=== PATIENT | male | born 1965 | race Caucasian/White ===

== ENCOUNTER 2020-06-22 07:54 | Outpatient (REF) | payer OTHER, SELFPAY ==
[2020-06-22 10:19] LABS: Hemoglobin 16.4 g/dl (14.0-18.0); MANUAL DIFF FLAG SCAN; Red Cell Distribution Width 12.1 % (11.0-16.0); SCAN SMEAR FLAG 1
[2020-06-22 10:21] LABS: Basophils Absolute Auto 0.1 X10*3/uL (0.0-0.2); Basophils Percent Auto 0.8 % (0-2); Eosinophils Absolute Auto 0.3 X10*3/uL (0.0-0.4); Hematocrit 48.9 % (42-52); Imm Gran Abs Auto 0.04 X10*3/uL (0.00-0.03); Imm Gran Pct Auto 0.6 % (0.0-0.4); Lymphocytes Percent Auto 15.8 % (20-40); Mean Corpuscular HGB Conc 33.5 g/dl (31.0-36.0); Mean Corpuscular Hemoglobin 30.8 pg (27.0-33.0); Mean Corpuscular Volume 91.9 fL (80-98); Mean Platelet Volume 12.8 fL (9.4-12.4); Monocytes Absolute Auto 0.6 X10*3/uL (0.1-1.2); Monocytes Percent Auto 8.8 % (2-11); Neutrophils Absolute Auto 4.6 X10*3/uL (2.0-8.3); Platelet Count 125 X10*3/uL (160-400); Red Blood Count 5.32 X10*6/uL (4.60-5.80); White Blood Count 6.6 X10*3/uL (4.8-10.8)
[2020-06-22 10:30] LABS: Alanine Aminotransferase 25 U/L (0-40); Albumin Level 4.5 g/dL (3.5-5.0); Alkaline Phosphatase 97 U/L (39-117); Anion Gap 10 (12-20); Aspartate Amino Transferase 27 U/L (5-37); Bilirubin Total 0.5 mg/dL (0.0-1.0); Blood Urea Nitrogen 13 mg/dL (9-16); Calcium 8.6 mg/dL (8.4-10.2); Carbon Dioxide 30 mmol/L (22-29); Chloride 103 mmol/L (96-108); Cholesterol 185 mg/dL; Estimated Glomerular Filt Rate > 60; Glucose Fasting 84 mg/dL (60-99); HDL Cholesterol 53 mg/dL; LDL Cholesterol Calculated 119 mg/dl; Potassium 4.2 mmol/l (3.3-5.1); Sodium 139 mmol/L (135-145); Triglycerides 66 mg/dL
[2020-06-22 10:35] LABS: Glucose Urine UA NEG (NEG); Leukocyte Esterase Urine NEG (NEG); Nitrite Urine NEG (NEG); PH 7.5 (5.0-8.0); Specific Gravity - Urine <= 1.005 (1.005-1.025); Urine Blood NEG (NEG); Urine Ketones NEG (NEG); Urine Protein NEG (NEG-TRACE)
[2020-06-22 10:39] LABS: Appearance Urine CLEAR; Color Urine STRAW
[2020-06-22 10:59] LABS: Free T4 (Free Thyroxine) 0.95 ng/dL (0.71-1.85); Thyroid Stimulating Hormone 1.26 uIU/mL (0.32-4.0); Vitamin D 25-OH Total 28.3 ng/mL (>30)
[2020-06-22 11:00] LABS: PLT ABN DIST 1
[2020-06-22 11:04] LABS: Prostate Specific Antigen Scr 0.62 ng/mL (<0.05-4.0); Vitamin B12 800 pg/mL (200-900)
== END 2020-06-22 07:55 | disposition home or self-care (01) ==
LOC: HO.10HDL 07:54
PROVIDERS: PCP Internal Medicine; Visit Provider Internal Medicine
DX: R53.83 Other fatigue (principal); N40.0 Benign prostatic hyperplasia without lower urinary tract symptoms; E55.9 Vitamin D deficiency, unspecified; E07.9 Disorder of thyroid, unspecified
CPT/HCPCS: 36415; 80053; 80061; 81003; 82306; 82607; 84153; 84439; 84443; 85025

== ENCOUNTER 2020-08-08 12:28 | Outpatient (REF) | payer OTHER, SELFPAY ==
--- NOTE | 2020-08-08 12:42 | XR_ITS ---
EXAMINATION: XR RIBS, RIGHT CLINICAL INFORMATION: Right posterior rib pain COMPARISON: None TECHNIQUE: 3 views of the right ribs were obtained. FINDINGS: Lungs are clear. No consolidation, pneumothorax, or pleural effusion. The cardiomediastinal silhouette and pulmonary vasculature are normal. Osseous structures are unremarkable. Ribs are intact. No fractures are identified. XR/XR ribs RT min 3V w CXR1V IMPRESSION: Unremarkable examination.
== END 2020-08-08 12:29 | disposition home or self-care (01) ==
LOC: HO.XRAY 12:28
PROVIDERS: PCP Internal Medicine; Visit Provider Internal Medicine
DX: R07.81 Pleurodynia (principal)
CPT/HCPCS: 71101

== ENCOUNTER 2020-10-13 16:19 | Outpatient (REF) | payer OTHER, SELFPAY ==
[2020-10-13 17:24] LABS: MANUAL DIFF FLAG NO
[2020-10-13 17:32] LABS: Basophils Absolute Auto 0.1 X10*3/uL (0.0-0.2); Basophils Percent Auto 0.7 % (0-2); Eosinophils Absolute Auto 0.2 X10*3/uL (0.0-0.4); Eosinophils Percent Auto 3.2 % (0-4); Hematocrit 48.2 % (42-52); Imm Gran Abs Auto 0.03 X10*3/uL (0.00-0.03); Imm Gran Pct Auto 0.4 % (0.0-0.4); Lymphocytes Absolute Auto 1.1 X10*3/uL (1.2-4.9); Lymphocytes Percent Auto 14.4 % (20-40); Mean Corpuscular HGB Conc 33.2 g/dl (31.0-36.0); Mean Corpuscular Hemoglobin 30.6 pg (27.0-33.0); Mean Corpuscular Volume 92.2 fL (80-98); Mean Platelet Volume 12.8 fL (9.4-12.4); Monocytes Absolute Auto 0.5 X10*3/uL (0.1-1.2); Monocytes Percent Auto 7.2 % (2-11); Neutrophils Absolute Auto 5.6 X10*3/uL (2.0-8.3); Neutrophils Percent Auto 74.1 % (45-73); Platelet Count 108 X10*3/uL (160-400); Red Blood Count 5.23 X10*6/uL (4.60-5.80); Red Cell Distribution Width 12.4 % (11.0-16.0); White Blood Count 7.5 X10*3/uL (4.8-10.8)
[2020-10-13 18:01] LABS: Alanine Aminotransferase 34 U/L (0-40); Albumin Level 4.6 g/dL (3.5-5.0); Alkaline Phosphatase 101 U/L (39-117); Anion Gap 11 (12-20); Aspartate Amino Transferase 41 U/L (5-37); Bilirubin Total 0.6 mg/dL (0.0-1.0); Blood Urea Nitrogen 13 mg/dL (9-16); Carbon Dioxide 31 mmol/L (22-29); Chloride 105 mmol/L (96-108); Estimated Glomerular Filt Rate > 60; Glucose Random 85 mg/dL (60-115); Potassium 3.9 mmol/L (3.3-5.1); Sodium 143 mmol/L (135-145); Total Protein 7.4 g/dL (6.5-8.0)
== END 2020-10-13 16:20 | disposition home or self-care (01) ==
LOC: HO.LAB 16:19
PROVIDERS: PCP Internal Medicine; Visit Provider Internal Medicine
DX: R19.7 Diarrhea, unspecified (principal); K21.9 Gastro-esophageal reflux disease without esophagitis
CPT/HCPCS: 36415; 80053; 85025

== ENCOUNTER 2020-11-12 12:01 | Inpatient (IN) | payer OTHER, SELFPAY ==
--- NOTE | ~2020-11-12 | XR_ITS ---
EXAMINATION: XR ELBOW, RIGHT CLINICAL INFORMATION: Right elbow pain COMPARISON: None TECHNIQUE: AP, lateral, and oblique views of the right elbow. FINDINGS: The bones and soft tissues are normal. No fracture or joint effusion. Alignment is anatomic. Joint spaces are maintained. XR/XR elbow RT min 3V IMPRESSION: Normal right elbow.
--- NOTE | ~2020-11-12 | CT_ITS ---
EXAMINATION: CTA CHEST WITHOUT AND WITH CONTRAST (PE STUDY) CT ABDOMEN AND PELVIS WITH CONTRAST CLINICAL INFORMATION: Shortness of breath. Clinical concern regarding pulmonary embolism. Diarrhea for months after antibiotics COMPARISON: The report of CT abdomen pelvis 09/30/13 includes no acute intra-abdominal abnormalities. TECHNIQUE: CT angiography of the chest. Multidetector CT helical examination of the chest during the rapid IV administration 65 mL of intravenous Omnipaque 350. Multidetector CT of the abdomen and pelvis performed after the IV contrast administration. Extensive postprocessing was performed including reformatting and multiplanar reconstructions with maximum intensity projections. Pulmonary embolus technique. DLP: 746 mGy-cm. FINDINGS: CTA CHEST: Adequate bolus: The study is adequate technical quality Pulmonary arteries: There are multiple bilateral central pulmonary emboli. The clot burden is large. There is no large embolus in the main pulmonary artery or central right and left pulmonary arteries. There are large central emboli within segmental branches bilaterally. Aorta: There is no thoracic aortic aneurysm. There is no dissection. The heart is not enlarged. The septum is not deviated. There is no reflux of contrast into the hepatic veins. There is no pericardial fluid. Mediastinum: There are no enlarged mediastinal or hilar lymph nodes. No suspicious abnormality the esophagus. Pleura: There is no pleural fluid or pneumothorax. LUNGS: There is no suspicious mass or nodule. No consolidation or major zone atelectasis. No edema. Axilla: There are no enlarged axillary lymph nodes. No large chest wall mass. CT abdomen/pelvis: Liver, Gallbladder, And Biliary Tree: There is a poorly defined 1.1 cm low attenuating lesion in hepatic segment 5. This is likely unchanged since 2014. There is a 0.5 cm low attenuating lesion at the posterior lower margin of hepatic segment 6. This is also too small to characterize and may be unchanged. This does not require any further evaluation. There are some barely perceptible tiny low attenuating liver lesions which are too small to characterize and could represent cysts. The liver contour is smooth. There is no opaque gallstone. There is no biliary dilation. Pancreas: Within normal limits. Spleen: Normal Adrenal Glands: No suspicious abnormality Kidneys And Ureters: There is no dilation of the intrarenal collecting system on either side. There is no suspicious renal mass. The nephrograms are symmetric. Gastrointestinal Tract: There is no bowel wall thickening. No localized pericolonic fat stranding. There is no small bowel dilation. The stomach is not well distended. There is no omental or mesenteric mass demonstrated. There is no CT evidence of acute appendicitis. Abdominal Wall: There is a small amount of fat protruding into the left inguinal canal. This is unchanged since 2014. Lymphovascular Structures And Fluid: There is no abdominal aortic aneurysm. The portal vein enhances. There are no measurably enlarged abdominal or pelvic lymph nodes. There is no fringe peritoneal fluid. Bladder: No suspicious abnormality of the urinary bladder. Pelvic Viscera: Within normal limits Musculoskeletal: There is a disc abnormality at L4/L5 not well characterized. There is a disc osteophyte complex at L5/S1 with associated endplate degenerative changes. CT/CT angio chest PE protocol IMPRESSION: Multiple bilateral central pulmonary emboli. High clot burden. There is no septal deviation or reflux of contrast into the hepatic veins. No suspicious mass in the abdomen or pelvis. No etiology for diarrhea demonstrated. VTE: POSITIVE
--- NOTE | ~2020-11-12 | US_ITS ---
EXAMINATION: US VENOUS ULTRASOUND WITH DOPPLER LOWER EXTREMITY, BILATERAL CLINICAL INFORMATION: History of DVT with elevated d-dimer COMPARISON: None TECHNIQUE: Ultrasound of the deep veins is performed from the hip to the calf with compression sonography and color and pulse Doppler assessment. Spectral analysis with color-flow imaging is performed. FINDINGS: RIGHT: There is normal venous compression and respiratory variation and augmented flow. The visualized common femoral vein, superficial femoral vein, profunda femoral vein, popliteal vein, and the trifurcation region shows no evidence of deep venous thrombosis. There is no significant popliteal fossa cyst. LEFT: Acute thrombus present in the peroneal and posterior tibial veins extending into the popliteal vein. No other thrombus is seen there is normal venous compression and respiratory variation and augmented flow throughout the remainder of the deep venous system. The visualized common femoral vein, superficial femoral vein and profunda femoral vein shows no evidence of deep venous thrombosis. There is no significant popliteal fossa cyst. Some chronic thrombus may be present in the superficial great saphenous vein near the junction. US/US venous duplex LE BI IMPRESSION: No DVT demonstrated in the right lower extremity. Acute DVT present left lower extremity as described above.
--- NOTE | ~2020-11-12 | XR_ITS ---
EXAMINATION: XR CHEST CLINICAL INFORMATION: Shortness of breath COMPARISON: CTA chest 09/24/2013 TECHNIQUE: Frontal view of the chest was obtained. FINDINGS: No significant abnormality is noted involving the heart, lungs, mediastinum, bony thorax or soft tissues. XR/XR chest 1V IMPRESSION: Unremarkable examination.
[2020-11-12 12:13] VITALS: BP 174/86; PULSE 92; RESP 24; TEMP 37.1; O2SAT 96; BMI 24.5
--- NOTE | 2020-11-12 12:51 | ECG_ITS ---
Test Reason : SHORTNESS OF BREATH Blood Pressure : / mmHG Vent. Rate : 076 BPM Atrial Rate : 076 BPM P-R Int : 164 ms QRS Dur : 084 ms QT Int : 398 ms P-R-T Axes : 064 004 050 degrees QTc Int : 447 ms Normal sinus rhythm Possible Left atrial enlargement Borderline ECG When compared with ECG of 13-OCT-2013 00:57, No significant change was found Referred By: Michelle Jimenez Electronically Signed By:LEATHA LOZANO MD
[2020-11-12 13:25] LABS: Basophils Absolute Auto 0.1 X10*3/uL (0.0-0.2); Basophils Percent Auto 0.5 % (0-2); Eosinophils Absolute Auto 0.1 X10*3/uL (0.0-0.4); Eosinophils Percent Auto 0.6 % (0-4); Hematocrit 47.2 % (42-52); Hemoglobin 15.9 g/dl (14.0-18.0); Imm Gran Abs Auto 0.04 X10*3/uL (0.00-0.03); Imm Gran Pct Auto 0.4 % (0.0-0.4); Lymphocytes Absolute Auto 0.6 X10*3/uL (1.2-4.9); Lymphocytes Percent Auto 5.6 % (20-40); MANUAL DIFF FLAG SCAN; Mean Corpuscular HGB Conc 33.7 g/dl (31.0-36.0); Mean Corpuscular Hemoglobin 30.6 pg (27.0-33.0); Mean Corpuscular Volume 90.8 fL (80-98); Mean Platelet Volume 12.3 fL (9.4-12.4); Monocytes Absolute Auto 0.5 X10*3/uL (0.1-1.2); Monocytes Percent Auto 4.6 % (2-11); Neutrophils Absolute Auto 9.6 X10*3/uL (2.0-8.3); Neutrophils Percent Auto 88.3 % (45-73); Platelet Count 100 X10*3/uL (160-400); Red Cell Distribution Width 12.1 % (11.0-16.0); SCAN SMEAR FLAG 1; White Blood Count 10.8 X10*3/uL (4.8-10.8)
[2020-11-12 13:30] LABS: INTERNATIONAL NORM RATIO 1.2 (0.9-1.1); Prothrombin Time 13.7 SEC (10.8-13.0)
[2020-11-12 13:33] LABS: D Dimer 1033 NG/ML; Partial Thromboplastin Time 32.3 SEC (24.1-38.0)
[2020-11-12 13:40] LABS: Lactic Acid 0.9 mmol/L (0.5-2.0)
[2020-11-12 13:46] LABS: SLIDE REVIEW VERIFIED
[2020-11-12 13:47] LABS: Alanine Aminotransferase 29 U/L (0-40); Albumin Level 4.5 g/dL (3.5-5.0); Alkaline Phosphatase 121 U/L (39-117); Anion Gap 16 (12-20); Aspartate Amino Transferase 32 U/L (5-37); Bilirubin Direct 0.3 mg/dL (0.0-0.5); Bilirubin Total 0.7 mg/dL (0.0-1.0); Blood Urea Nitrogen 13 mg/dL (9-16); C Reactive Protein 0.79 mg/dL (< or = 0.50); Calcium 9.2 mg/dL (8.4-10.2); Carbon Dioxide 24 mmol/L (22-29); Chloride 105 mmol/L (96-108); Creatinine Clr Calc Pharmacy 94.4; Estimated Glomerular Filt Rate > 60; Glucose Random 106 mg/dL (60-115); Lactate Dehydrogenase 253 U/L (118-273); Magnesium 2.3 mg/dL (1.6-2.6); Potassium 3.9 mmol/L (3.3-5.1); Sodium 141 mmol/L (135-145); Total Protein 7.3 g/dL (6.5-8.0)
[2020-11-12 13:54] LABS: B Type Natriuretic Peptide 16 pg/mL (<100); Troponin-I High Sensitivity < 3.5 ng/L (<3.5-35.0)
[2020-11-12 14:04] LABS: Influenza A PCR NEGATIVE (Negative); Influenza B PCR NEGATIVE (Negative); Resp Syncy Virus RNA Qual PCR NEGATIVE (Negative); SARS COV2 PCR INHOUSE NEGATIVE (Negative)
[2020-11-12 14:06] LABS: Procalcitonin < 0.02 ng/mL
[2020-11-12 14:08] LABS: Ferritin 64 ng/mL (20-250)
[2020-11-12 14:33] LABS: Glucose Urine UA NEG (NEG); Leukocyte Esterase Urine NEG (NEG); Nitrite Urine NEG (NEG); PH 5.5 (5.0-8.0); Specific Gravity - Urine >= 1.030 (1.005-1.025); Urine Blood NEG (NEG); Urine Ketones >=80 MG/DL (NEG); Urine Protein NEG (NEG-TRACE)
[2020-11-12 14:34] LABS: Appearance Urine CLEAR; Color Urine YELLOW
[2020-11-12] MEDS: iohexoL 350 MG/ML 100 ML INFUS..BTL IV (16:01)
--- NOTE | 2020-11-12 16:10 | ED.SOB ---
HPI - SOB/Dyspnea General Chief Complaint: Dyspnea Stated Complaint: sob Time Seen by Provider: 11/12/20 12:50 Source: patient Mode of arrival: ambulatory Limitations: no limitations History of Present Illness HPI Narrative: 55-year-old male with a past medical history of superficial thrombophlebitis/DVT in [facility] presenting to the ED with complaints of sudden onset of shortness of breath over the past 3 days worse today. He reports associated anterior chest wall tightness and pain. Patient reports he also has a sore throat denies a cough. Reports associated dyspnea on exertion. Patient also reports a separate complaint that he has been having intermittent diarrhea over the past month. He reports that he had dental work and was placed on antibiotics and since then has been having diarrhea. Patient also report requesting x-ray of his right elbow due to pain for the past 2-3 months after an injury. Denies any fevers, chills, dizziness, headaches, nausea/vomiting, orthopnea, palpitations, radiation of the chest pain, constipation, black or bloody stools or any other symptoms complaints or concerns at this time. 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 Denies recent travel or sick contacts that he is aware of. 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 MD elicited complaint: shortness of breath, pain with inspiration, chest pain and anxiety Pertinent past history: other (Superficial thrombophlebitis) Onset (ago): day(s) (Three days worse today) Context: anxiety Timing: constant and progressively worsening Severity: moderate Exacerbating factors: exertion, inspiration and deep breaths Relieving factors: rest and upright position Known history of: other (Superficial thrombophlebitis) Associated symptoms: chest pain and pain with inspiration Treatment prior to arrival: none Related Data Home oxygen amount: none Allergies Allergy/AdvReac Type Severity Reaction Status Date / Time prednisone Allergy Unknown Unknown Verified 11/12/20 12:11 warfarin [From COUMADIN] Allergy Unknown UNKNOWN Unverified 03/31/20 14:45 amoxicillin AdvReac Diarrhea Verified 11/12/20 12:11 Review of Systems Review of Systems: Constitutional : + Fatigues/malaise, No Weight loss, No Fever, No Chills, No Night Sweats ENT/Mouth : No Hearing loss, No Ear Pain, No Nasal Congestion, No Sinus Pain, No Hoarseness, + sore throat, No Rhinorrhea, No Swallowing Difficulty Eyes: No Eye Pain, No Swelling, No Redness, No Foreign Body, No Discharge, No VisionChanges Cardiovascular : + SOB, + Dyspnea on Exertion, + Chest Pain, No Orthopnea, NoEdema, No extremity swelling, No Palpitations Respiratory : No Cough, No Sputum, No Wheezing, No Dyspnea Gastrointestinal : + abdominal pain, + Diarrhea, No Nausea, No Vomiting, NoHematochezia, No Melena Genitourinary : No irregular bleeding, No Dysuria, No Urinary Frequency, No Hematuria,No Urinary Incontinence, No Urgency, No Flank Pain, No Urinary Flow Changes, NoHesitancy Musculoskeletal : + joint pain, No Myalgias, No Joint Swelling Skin : No Skin Lesions, No rash Neuro : No Weakness, No Numbness, No Paresthesias, No Loss of Consciousness, NoDizziness, No Headache Psych : No Anxiety/Panic, No Depression, No SI/HI/AH/VH Heme/Lymph: No Bruising, No Bleeding,No Lymphadenopathy Endocrine : No Polyuria, No Polydipsia, No Temperature Intolerance Yes all other systems are reviewed and are negative ON LICENSE OF [facility] Past Medical History Attestation statement: The following information was validated with the patient. Medical History Blood clot in vein Social History Social History Alcohol intake: never Smoking Status: Never smoker Use of substances other than those prescribed or required for medical reasons: No Advance Directives: No Advance Directives Information Provided: Yes Physical Exam Vital Signs: Vital Signs: Last Vital Signs Temp 98.8 F 11/12/20 12:13 Pulse 92 11/12/20 12:13 Resp 24 H 11/12/20 12:13 BP 174/86 H 11/12/20 12:13 Pulse Ox 96 11/12/20 12:13 Body Mass Index 24.5 vital signs have been reviewed as normal and appeared to be correct. Blood pressure normal. Heart rate normal. Respiration rate normal. Temperature normal. Oxygen saturation normal. Appearance: Alert. Oriented X3. No acute distress. Head: Normal external exam. Normocephalic. Eyes: PERRLA. EOMI. Conjunctiva and sclera normal. Eyelids normal. ENT: Pharynx normal. Uvula midline. Moist mucous membranes. Neck: Normal inspection. Neck supple. FROM. No adenopathy. No meningeal signs. CVS: Normal heart rate and rhythm. Heart sound normal. No murmurs noted. Pulses normal throughout. Respiratory: No respiratory distress. Painless inspiration. Breath sounds normal. No wheezes/rales/rhonchi noted. Chest nontender. No accessory muscle usage noted or decreased air movement noted. Abdomen: Soft and nontender. Nondistended. No guarding. No rigidity. Bowel sounds normal in all 4 quadrants. No distention noted. No organomegaly noted. No visible injury noted. No rebound tenderness. Negative Rovsing sign. Negative obturator's sign. Negative psoas sign. Negative Mathews sign. Back: No CVA tenderness. Full range of motion noted. Skin: Skin warm and dry. Normal skin color. Normal skin turgor. No rashes/lesions/lacerations noted. Extremities: Extremities exhibit normal range of motion. Extremities nontender. Neuro: Oriented X 3. No motor deficit. No sensory deficit. Reflexes normal. Normal steady gait. Course Course Course Narrative: 16pm - labs returned and D-dimer at 1033 - alkaline phosphate 121 - CRP 0.79 - otherwise all other labs are within normal limits - COVID/RSV/flu negative. - UA within normal limits no evidence of UTI - chest x-ray negative for any acute processes - right elbow x-ray within normal limits no acute processes noted - awaiting CTA of chest for PE and CT scan of abdomen and pelvis with IV contrast and bilateral duplex ultrasound lower extremity will re-evaluate Reevaluation(s) Reevaluation #1: - I received a call from [facility] and they reported that the patient has multiple central emboli on the CTA of chest therefore I consulted with my supervising doctor Dr. Farias and Dr. Darleen Norris and they recommended starting the patient on Lovenox as patient does not have a saddle emboli. - will plan to admit accepted admission at this time. Patient updated understands and agrees this plan. Time: 16:44 MDM - SOB/Dyspnea MDM Narrative Medical decision making narrative: 12:50pm - 55-year-old male presenting to the ED with complaints of sudden onset of shortness of breath with associated anterior chest wall tightness and a sore throat with dyspnea on exertion for the past 3 days worse today. Also reports a separate complaint of abdominal pain with diarrhea over the past month. Patient also report requesting x-ray of his right elbow due to pain for the past 2-3 months after an injury. - on exam patient is alert and oriented x3. Not in any acute distress. Patient mildly hypertensive at 174/86 mildly tachycardic at 92 and tachypneic at 24 otherwise all other vitals are within normal limits. Lungs clear to auscultation. CV RRR. Abdomen is soft and nontender. No lower extremity edema or calf tenderness is noted. - Concern for pulmonary embolism vs DVT vs pneumonia vs COVID vs ACS Plan: Labs, EKG, blood cultures, lactic acid, rapid strep, CT of chest for PE, CT scan of abdomen pelvis with IV contrast evaluate for any acute processes, chest x-ray, right elbow x-ray, bilateral venous duplex ultrasound of lower extremity to evaluate for possible DVT. Provide a L of IV fluids and re-evaluate. Medical Records Attestation: I reviewed the patient's medical records. Lab Data Attestation: I reviewed the patient's lab results. Result diagrams: 11/12/20 13:16 11/12/20 13:16 Labs: Lab Results 11/12/20 11/12/20 11/12/20 Range/Units 13:16 13:16 13:16 WBC 10.8 (4.8-10.8) X10*3/uL RBC 5.20 (4.60-5.80) X10*6/uL Hgb 15.9 (14.0-18.0) g/dl Hct 47.2 (42-52) % MCV 90.8 (80-98) fL MCH 30.6 (27.0-33.0) pg MCHC 33.7 (31.0-36.0) g/dl RDW 12.1 (11.0-16.0) % Plt Count 100 L (160-400) X10*3/uL MPV 12.3 (9.4-12.4) fL Immature Gran % (Auto) 0.4 (0.0-0.4) % Neut % (Auto) 88.3 H (45-73) % Lymph % (Auto) 5.6 L (20-40) % [place] % (Auto) 4.6 (2-11) % Eos % (Auto) 0.6 (0-4) % Baso % (Auto) 0.5 (0-2) % Lymph # (Auto) 0.6 L (1.2-4.9) X10*3/uL [place] # (Auto) 0.5 (0.1-1.2) X10*3/uL Eos # (Auto) 0.1 (0.0-0.4) X10*3/uL Baso # (Auto) 0.1 (0.0-0.2) X10*3/uL Abs Immat Gran (auto) 0.04 H (0.00-0.03) X10*3/uL Absolute Neuts (auto) 9.6 H (2.0-8.3) X10*3/uL Absolute Nucleated RBC 0.000 (0.0-0.012) X10*3/uL Nucleated RBC % (auto) 0.0 (0.0-0.2) /100WBC Smear Tech's Comments VERIFIED PT 13.7 H (10.8-13.0) SEC INR 1.2 H (0.9-1.1) APTT 32.3 (24.1-38.0) SEC D-Dimer 1033 NG/ML Sodium 141 (135-145) mmol/L Potassium 3.9 (3.3-5.1) mmol/L Chloride 105 (96-108) mmol/L Carbon Dioxide 24 (22-29) mmol/L Anion Gap 16 (12-20) BUN 13 (9-16) mg/dL Creatinine 0.93 (0.5-1.4) mg/dL Estim Creat Clear Calc 94.4 Estimated GFR > 60 Random Glucose 106 (60-115) mg/dL Lactic Acid (0.5-2.0) mmol/L Calcium 9.2 (8.4-10.2) mg/dL Magnesium 2.3 (1.6-2.6) mg/dL Ferritin 64 (20-250) ng/mL Total Bilirubin 0.7 (0.0-1.0) mg/dL Direct Bilirubin 0.3 (0.0-0.5) mg/dL AST 32 (5-37) U/L ALT 29 (0-40) U/L Alkaline Phosphatase 121 H (39-117) U/L Lactate Dehydrogenase 253 (118-273) U/L Troponin I High Sens (<3.5-35.0) ng/L C-Reactive Protein 0.79 H (< or = 0.50) mg/dL B-Natriuretic Peptide (<100) pg/mL Total Protein 7.3 (6.5-8.0) g/dL Albumin 4.5 (3.5-5.0) g/dL Procalcitonin ng/mL Urine Color Urine Appearance Urine pH (5.0-8.0) Ur Specific [place] (1.005-1.025) Urine Protein (NEG-TRACE) MG/DL Urine Glucose (UA) (NEG) MG/DL Urine Ketones (NEG) MG/DL Urine Blood (NEG) Urine Nitrite (NEG) Ur Leukocyte Esterase (NEG) Coronavirus (PCR) (Negative) Influenza Type A (PCR) (Negative) Influenza Type B (PCR) (Negative) RSV RNA Qual (PCR) (Negative) 11/12/20 11/12/20 11/12/20 Range/Units 13:16 13:16 13:16 WBC (4.8-10.8) X10*3/uL RBC (4.60-5.80) X10*6/uL Hgb (14.0-18.0) g/dl Hct (42-52) % MCV (80-98) fL MCH (27.0-33.0) pg MCHC (31.0-36.0) g/dl RDW (11.0-16.0) % Plt Count (160-400) X10*3/uL MPV (9.4-12.4) fL Immature Gran % (Auto) (0.0-0.4) % Neut % (Auto) (45-73) % Lymph % (Auto) (20-40) % [place] % (Auto) (2-11) % Eos % (Auto) (0-4) % Baso % (Auto) (0-2) % Lymph # (Auto) (1.2-4.9) X10*3/uL [place] # (Auto) (0.1-1.2) X10*3/uL Eos # (Auto) (0.0-0.4) X10*3/uL Baso # (Auto) (0.0-0.2) X10*3/uL Abs Immat Gran (auto) (0.00-0.03) X10*3/uL Absolute Neuts (auto) (2.0-8.3) X10*3/uL Absolute Nucleated RBC (0.0-0.012) X10*3/uL Nucleated RBC % (auto) (0.0-0.2) /100WBC Smear Tech's Comments PT (10.8-13.0) SEC INR (0.9-1.1) APTT (24.1-38.0) SEC D-Dimer NG/ML Sodium (135-145) mmol/L Potassium (3.3-5.1) mmol/L Chloride (96-108) mmol/L Carbon Dioxide (22-29) mmol/L Anion Gap (12-20) BUN (9-16) mg/dL Creatinine (0.5-1.4) mg/dL Estim Creat Clear Calc Estimated GFR Random Glucose (60-115) mg/dL Lactic Acid 0.9 (0.5-2.0) mmol/L Calcium (8.4-10.2) mg/dL Magnesium (1.6-2.6) mg/dL Ferritin (20-250) ng/mL Total Bilirubin (0.0-1.0) mg/dL Direct Bilirubin (0.0-0.5) mg/dL AST (5-37) U/L ALT (0-40) U/L Alkaline Phosphatase (39-117) U/L Lactate Dehydrogenase (118-273) U/L Troponin I High Sens < 3.5 (<3.5-35.0) ng/L C-Reactive Protein (< or = 0.50) mg/dL B-Natriuretic Peptide 16 (<100) pg/mL Total Protein (6.5-8.0) g/dL Albumin (3.5-5.0) g/dL Procalcitonin < 0.02 ng/mL Urine Color Urine Appearance Urine pH (5.0-8.0) Ur Specific [place] (1.005-1.025) Urine Protein (NEG-TRACE) MG/DL Urine Glucose (UA) (NEG) MG/DL Urine Ketones (NEG) MG/DL Urine Blood (NEG) Urine Nitrite (NEG) Ur Leukocyte Esterase (NEG) Coronavirus (PCR) (Negative) Influenza Type A (PCR) (Negative) Influenza Type B (PCR) (Negative) RSV RNA Qual (PCR) (Negative) 11/12/20 11/12/20 Range/Units 13:16 14:22 WBC (4.8-10.8) X10*3/uL RBC (4.60-5.80) X10*6/uL Hgb (14.0-18.0) g/dl Hct (42-52) % MCV (80-98) fL MCH (27.0-33.0) pg MCHC (31.0-36.0) g/dl RDW (11.0-16.0) % Plt Count (160-400) X10*3/uL MPV (9.4-12.4) fL Immature Gran % (Auto) (0.0-0.4) % Neut % (Auto) (45-73) % Lymph % (Auto) (20-40) % [place] % (Auto) (2-11) % Eos % (Auto) (0-4) % Baso % (Auto) (0-2) % Lymph # (Auto) (1.2-4.9) X10*3/uL [place] # (Auto) (0.1-1.2) X10*3/uL Eos # (Auto) (0.0-0.4) X10*3/uL Baso # (Auto) (0.0-0.2) X10*3/uL Abs Immat Gran (auto) (0.00-0.03) X10*3/uL Absolute Neuts (auto) (2.0-8.3) X10*3/uL Absolute Nucleated RBC (0.0-0.012) X10*3/uL Nucleated RBC % (auto) (0.0-0.2) /100WBC Smear Tech's Comments PT (10.8-13.0) SEC INR (0.9-1.1) APTT (24.1-38.0) SEC D-Dimer NG/ML Sodium (135-145) mmol/L Potassium (3.3-5.1) mmol/L Chloride (96-108) mmol/L Carbon Dioxide (22-29) mmol/L Anion Gap (12-20) BUN (9-16) mg/dL Creatinine (0.5-1.4) mg/dL Estim Creat Clear Calc Estimated GFR Random Glucose (60-115) mg/dL Lactic Acid (0.5-2.0) mmol/L Calcium (8.4-10.2) mg/dL Magnesium (1.6-2.6) mg/dL Ferritin (20-250) ng/mL Total Bilirubin (0.0-1.0) mg/dL Direct Bilirubin (0.0-0.5) mg/dL AST (5-37) U/L ALT (0-40) U/L Alkaline Phosphatase (39-117) U/L Lactate Dehydrogenase (118-273) U/L Troponin I High Sens (<3.5-35.0) ng/L C-Reactive Protein (< or = 0.50) mg/dL B-Natriuretic Peptide (<100) pg/mL Total Protein (6.5-8.0) g/dL Albumin (3.5-5.0) g/dL Procalcitonin ng/mL Urine Color YELLOW Urine Appearance CLEAR Urine pH 5.5 (5.0-8.0) Ur Specific [place] >= 1.030 H (1.005-1.025) Urine Protein NEG (NEG-TRACE) MG/DL Urine Glucose (UA) NEG (NEG) MG/DL Urine Ketones >=80 (NEG) MG/DL Urine Blood NEG (NEG) Urine Nitrite NEG (NEG) Ur Leukocyte Esterase NEG (NEG) Coronavirus (PCR) NEGATIVE (Negative) Influenza Type A (PCR) NEGATIVE (Negative) Influenza Type B (PCR) NEGATIVE (Negative) RSV RNA Qual (PCR) NEGATIVE (Negative) Imaging Data Right elbow x-ray: Attestation: I personally reviewed and interpreted this imaging study as follows: Radiologist's impression: FINDINGS: The bones and soft tissues are normal. No fracture or joint effusion. Alignment is anatomic. Joint spaces are maintained. XR/XR elbow RT min 3V IMPRESSION: Normal right elbow. Chest x-ray: Attestation: I personally reviewed and interpreted this imaging study as follows: Radiologist's impression: FINDINGS: No significant abnormality is noted involving the heart, lungs, mediastinum, bony thorax or soft tissues. XR/XR chest 1V IMPRESSION: Unremarkable examination. CTA of chest for PE and CT scan of abdomen pelvis IV contrast: Attestation: I personally reviewed and interpreted this imaging study as follows: Radiologist's impression: DLP: 746 mGy-cm. FINDINGS: CTA CHEST: Adequate bolus: The study is adequate technical quality Pulmonary arteries: There are multiple bilateral central pulmonary emboli. The clot burden is large. There is no large embolus in the main pulmonary artery or central right and left pulmonary arteries. There are large central emboli within segmental branches bilaterally. Aorta: There is no thoracic aortic aneurysm. There is no dissection. The heart is not enlarged. The septum is not deviated. There is no reflux of contrast into the hepatic veins. There is no pericardial fluid. Mediastinum: There are no enlarged mediastinal or hilar lymph nodes. No suspicious abnormality the esophagus. Pleura: There is no pleural fluid or pneumothorax. LUNGS: There is no suspicious mass or nodule. No consolidation or major zone atelectasis. No edema. Axilla: There are no enlarged axillary lymph nodes. No large chest wall mass. CT abdomen/pelvis: Liver, Gallbladder, And Biliary Tree: There is a poorly defined 1.1 cm low attenuating lesion in hepatic segment 5. This is likely unchanged since 2014. There is a 0.5 cm low attenuating lesion at the posterior lower margin of hepatic segment 6. This is also too small to characterize and may be unchanged. This does not require any further evaluation. There are some barely perceptible tiny low attenuating liver lesions which are too small to characterize and could represent cysts. The liver contour is smooth. There is no opaque gallstone. There is no biliary dilation. Pancreas: Within normal limits. Spleen: Normal Adrenal Glands: No suspicious abnormality Kidneys And Ureters: There is no dilation of the intrarenal collecting system on either side. There is no suspicious renal mass. The nephrograms are symmetric. Gastrointestinal Tract: There is no bowel wall thickening. No localized pericolonic fat stranding. There is no small bowel dilation. The stomach is not well distended. There is no omental or mesenteric mass demonstrated. There is no CT evidence of acute appendicitis. Abdominal Wall: There is a small amount of fat protruding into the left inguinal canal. This is unchanged since 2013. Lymphovascular Structures And Fluid: There is no abdominal aortic aneurysm. The portal vein enhances. There are no measurably enlarged abdominal or pelvic lymph nodes. There is no fringe peritoneal fluid. Bladder: No suspicious abnormality of the urinary bladder. Pelvic Viscera: Within normal limits Musculoskeletal: There is a disc abnormality at L4/L5 not well characterized. There is a disc osteophyte complex at L5/S1 with associated endplate degenerative changes. CT/CT abdomen pelvis w con IMPRESSION: Multiple bilateral central pulmonary emboli. High clot burden. There is no septal deviation or reflux of contrast into the hepatic veins. No suspicious mass in the abdomen or pelvis. No etiology for diarrhea demonstrated. VTE: POSITIVE ECG Data Attestation: I personally reviewed and interpreted this ECG as follows: ECG interpretation date: 11/12/20 ECG interpretation time: 12:05 Interpretation: Normal sinus rhythm with possible left atrial enlargement with a ventricular rate of 76 with normal QRS normal QT/QTC interval. No acute ischemic changes are noted. Similar when compared to prior EKG 10/13/2013 Critical Care Time Critical Care Time Critical Care Time: Yes Total Critical Care Time: 60 Attestation: I personally attest to this time spent taking care of the patient Discharge Plan Discharge Clinical Impression: Pulmonary embolism Patient Disposition: Admitted As Inpatient
[2020-11-12] MEDS: Enoxaparin Sodium 100 MG/ML SYRINGE 80 MG SUBCUT (16:46)
--- NOTE | 2020-11-12 17:05 | P.HPHOSP_ITS ---
History of Present Illness Date of Service: 11/12/20 <Chinyere Hernández NP - Last Filed: 11/12/20 18:13> 85-year-old man presenting to the ER with chest pressure and shortness of breath. He reports this is ongoing over the last 3 days he also had some anterior chest wall pain that comes and goes. 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 He reports that he saw his primary care provider in the beginning of October and at that time was tachycardic and this was thought to be related to acid reflux. 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 He was on warfarin for several months but came off of it because he decided to do more natural remedies. He reports that he works in [place] and tries to do more natural health improving methods. He reports he had been well up until month ago when he had 2 root canals and was placed on antibiotics and subsequently developed frequent diarrhea, watery stools for about 4 weeks. He reports that it is subsiding but it is still present. the diarrhea was thought to be related to the antibiotic he was treated with. Today in the ER chest CTA showed multiple bilateral central pulmonary emboli with high clot burden. He is not noted to be hypoxic and not requiring any oxygen. He was given a dose of therapeutic Lovenox. To be admitted for further management and treatment of acute pulmonary embolus. <Chinyere Hernández NP - Last Filed: 11/12/20 18:13> Review of Systems Review of Systems: Denies any recent fever chills or decrease in appetite respiratory denies any shortness of breath coverage production cardiovascular is adjustment of any PND or edema gastrointestinal denies any dysphagia abdominal pain nausea vomiting or diarrhea genitourinary denies any dysuria frequency or hematuria musculoskeletal denies any joint pain or swelling neuropsych denies any weakness or seizures all other systems reviewed are negative <Chinyere Hernández NP - Last Filed: 11/12/20 18:13> [facility] Medical History: Medical History Blood clot in vein <Chinyere Hernández NP - Last Filed: 11/12/20 18:13> Social History: Social History Household Members: Family Household Members Other:: mother Housing: House Do you presently have visiting nurse or other home services: No Alcohol intake: never Smoking Status: Former smoker Use of substances other than those prescribed or required for medical reasons: No Currently Displaying Signs/Symptoms of Drug Intoxication Withdrawal: No Any prior treatment program specific to substance use: No Have you been hit, kicked, punched, or otherwise hurt by someone within the past year? If so, by whom?: No Do you feel safe in your current relationship?: No Current Relationship Is there a partner from a previous relationship who is making you feel unsafe now?: No Are you made to feel afraid or neglected: No Advance Directives: No Advance Directives Information Provided: Yes Do you have thoughts of harming others: None Do you have a plan to hurt others: No Plan Recently lost weight without trying: No <Chinyere Hernández NP - Last Filed: 11/12/20 18:13> Meds Allergies/Adverse reactions: Allergies Allergy/AdvReac Type Severity Reaction Status Date / Time prednisone Allergy Unknown Unknown Verified 11/12/20 12:11 warfarin [From COUMADIN] Allergy Unknown UNKNOWN Unverified 03/31/20 14:45 amoxicillin AdvReac Diarrhea Verified 11/12/20 12:11 <Chinyere Hernández NP - Last Filed: 11/12/20 18:13> Home medications: Home Medications Medication Instructions Recorded Confirmed Last Taken Type multivitamin 1 tab PO DAILY 11/12/20 11/12/20 11/12/20 History <Chinyere Hernández NP - Last Filed: 11/12/20 18:13> Physical Exam Vital Signs and Narrative: Vital Signs: Last Vital Signs Temp 98.8 F 11/12/20 12:13 Pulse 92 11/12/20 12:13 Resp 24 H 11/12/20 12:13 BP 174/86 H 11/12/20 12:13 Pulse Ox 96 11/12/20 12:13 Body Mass Index 24.5 <Chinyere Hernández NP - Last Filed: 11/12/20 18:13> Appearing in no acute distress head is normocephalic atraumatic eyes pupils are PERRLA sclera is anicteric mouth throat mucous membranes are intact and moist neck is supple no lymphadenopathy, no JVD noted lung sounds are clear to auscultation heart regular rate rhythm, clear S1, S2 positive bowel sounds, abdomen is soft, nontender neuro patient is alert x3, no focal deficits <Chinyere Hernández NP - Last Filed: 11/12/20 18:13> Results Labs CBC and Chem 7: : 11/13/20 05:46 11/13/20 05:46 <Chinyere Hernández NP - Last Filed: 11/12/20 18:13> Labs: Laboratory Results - last 24 hr 11/12/20 11/12/20 11/12/20 13:16 13:16 13:16 MCV 90.8 MCH 30.6 MCHC 33.7 RDW 12.1 Plt Count 100 L MPV 12.3 Immature Gran % (Auto) 0.4 Neut % (Auto) 88.3 H Lymph % (Auto) 5.6 L [place] % (Auto) 4.6 Eos % (Auto) 0.6 Baso % (Auto) 0.5 Lymph # (Auto) 0.6 L [place] # (Auto) 0.5 Eos # (Auto) 0.1 Baso # (Auto) 0.1 Abs Immat Gran (auto) 0.04 H Absolute Neuts (auto) 9.6 H Absolute Nucleated RBC 0.000 Nucleated RBC % (auto) 0.0 Smear Tech's Comments VERIFIED PT 13.7 H INR 1.2 H APTT 32.3 D-Dimer 1033 Anion Gap 16 Estim Creat Clear Calc 94.4 Estimated GFR > 60 Random Glucose 106 Lactic Acid Calcium 9.2 Magnesium 2.3 Ferritin 64 Total Bilirubin 0.7 Direct Bilirubin 0.3 AST 32 ALT 29 Alkaline Phosphatase 121 H Lactate Dehydrogenase 253 Troponin I High Sens C-Reactive Protein 0.79 H B-Natriuretic Peptide Total Protein 7.3 Albumin 4.5 Procalcitonin Urine Color Urine Appearance Urine pH Ur Specific [place] Urine Protein Urine Glucose (UA) Urine Ketones Urine Blood Urine Nitrite Ur Leukocyte Esterase Coronavirus (PCR) Influenza Type A (PCR) Influenza Type B (PCR) RSV RNA Qual (PCR) 11/12/20 11/12/20 11/12/20 13:16 13:16 13:16 MCV MCH MCHC RDW Plt Count MPV Immature Gran % (Auto) Neut % (Auto) Lymph % (Auto) [place] % (Auto) Eos % (Auto) Baso % (Auto) Lymph # (Auto) [place] # (Auto) Eos # (Auto) Baso # (Auto) Abs Immat Gran (auto) Absolute Neuts (auto) Absolute Nucleated RBC Nucleated RBC % (auto) Smear Tech's Comments PT INR APTT D-Dimer Anion Gap Estim Creat Clear Calc Estimated GFR Random Glucose Lactic Acid 0.9 Calcium Magnesium Ferritin Total Bilirubin Direct Bilirubin AST ALT Alkaline Phosphatase Lactate Dehydrogenase Troponin I High Sens < 3.5 C-Reactive Protein B-Natriuretic Peptide 16 Total Protein Albumin Procalcitonin < 0.02 Urine Color Urine Appearance Urine pH Ur Specific [place] Urine Protein Urine Glucose (UA) Urine Ketones Urine Blood Urine Nitrite Ur Leukocyte Esterase Coronavirus (PCR) Influenza Type A (PCR) Influenza Type B (PCR) RSV RNA Qual (PCR) 11/12/20 11/12/20 13:16 14:22 MCV MCH MCHC RDW Plt Count MPV Immature Gran % (Auto) Neut % (Auto) Lymph % (Auto) [place] % (Auto) Eos % (Auto) Baso % (Auto) Lymph # (Auto) [place] # (Auto) Eos # (Auto) Baso # (Auto) Abs Immat Gran (auto) Absolute Neuts (auto) Absolute Nucleated RBC Nucleated RBC % (auto) Smear Tech's Comments PT INR APTT D-Dimer Anion Gap Estim Creat Clear Calc Estimated GFR Random Glucose Lactic Acid Calcium Magnesium Ferritin Total Bilirubin Direct Bilirubin AST ALT Alkaline Phosphatase Lactate Dehydrogenase Troponin I High Sens C-Reactive Protein B-Natriuretic Peptide Total Protein Albumin Procalcitonin Urine Color YELLOW Urine Appearance CLEAR Urine pH 5.5 Ur Specific [place] >= 1.030 H Urine Protein NEG Urine Glucose (UA) NEG Urine Ketones >=80 Urine Blood NEG Urine Nitrite NEG Ur Leukocyte Esterase NEG Coronavirus (PCR) NEGATIVE Influenza Type A (PCR) NEGATIVE Influenza Type B (PCR) NEGATIVE RSV RNA Qual (PCR) NEGATIVE <Chinyere Hernández NP - Last Filed: 11/12/20 18:13> Imaging Radiologist's Impressions: Impressions Chest X-Ray 11/12/20 12:51 IMPRESSION: Unremarkable examination. Chest CTA 11/12/20 14:43 IMPRESSION: Multiple bilateral central pulmonary emboli. High clot burden. There is no septal deviation or reflux of contrast into the hepatic veins. No suspicious mass in the abdomen or pelvis. No etiology for diarrhea demonstrated. VTE: POSITIVE Abdomen/Pelvis CT 11/12/20 15:10 IMPRESSION: Multiple bilateral central pulmonary emboli. High clot burden. There is no septal deviation or reflux of contrast into the hepatic veins. No suspicious mass in the abdomen or pelvis. No etiology for diarrhea demonstrated. VTE: POSITIVE Elbow X-Ray 11/12/20 15:10 IMPRESSION: Normal right elbow. <Chinyere Hernández NP - Last Filed: 11/12/20 18:13> Assessment and Plan (1) Pulmonary embolism: Status: Acute <Chinyere Hernández NP - Last Filed: 11/12/20 18:13> 55 year old man admitted with multiple bilateral central pulmonary emboli with high clot burden. Pulmonary embolism. Unprovoked, hx of DVT in the past not on anticoagulation. 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 No history of hypertension. May be anxiety related. -trend Diarrhea. Started after antibiotic treatment for dental procedure. -check C diff Throat pain. No recent illness. No cough - strep screen and throat culture DVT prophylaxis with Lovenox. Attending: Dr. Ibarra <Chinyere Hernández NP - Last Filed: 11/12/20 18:13> Addendum to documentation by midlevel I saw and examined the patient and participated in the lackey portion of the E/M service. I agree with the history and exam as documented by FIRST CRUSHER. Patient has history of VTE but has been off coumadin for years and now has PE, he is hemodynamically stable. He is started on Lovenox. Exam: unremarkable, CVRRR, lungs CTA. Will admit for close monitoring and anticoagulation, transiontion to Xarelto or Elquis next days and discharge. Otherwise, I agree with assessment and plan as outlined in the H and P. Date of service 11/12/20 <Felice Ibarra MD - Last Filed: 11/13/20 07:49>
[2020-11-12 17:37] VITALS: BP 150/87; PULSE 92; RESP 16; O2SAT 96
--- NOTE | 2020-11-12 19:28 | PC.NURSE ---
REPORT TAKEN FROM SARAH RICCI,FIRST CONTACT WITH PT. SITTING UP IN BED, A&Ox4, SKIN PWD RESPIRATIONS EVEN UNLABORED. VSS. AWAITING BED ASSIGNMENT FOR ADMISSION. AWARE OF PLAN OF CARE.
--- NOTE | 2020-11-12 20:53 | PC.NURSE ---
ATTEMPTED TO GIVE REPORT TO [facility], AWAITING CALLBACK.
[2020-11-12 22:40] VITALS: BP 155/86; PULSE 78; RESP 17; TEMP 36.6; O2SAT 96
[2020-11-12] MEDS: 0.9 % Sodium Chloride Flush 3 ML SYRINGE IVFLUSH (23:14)
[2020-11-12 23:19] VITALS: BMI 23.1
[2020-11-12 23:20] VITALS: BP 158/93; PULSE 80; RESP 16; TEMP 36.2; O2SAT 98
[2020-11-13 03:11] VITALS: BP 134/79; PULSE 81; RESP 16; TEMP 36.6; O2SAT 95
[2020-11-13] MEDS: Enoxaparin Sodium 80 MG/0.8 ML SYRINGE SUBCUT (03:30)
[2020-11-13 06:31] LABS: MANUAL DIFF FLAG NO
[2020-11-13 06:54] LABS: Basophils Absolute Auto 0.1 X10*3/uL (0.0-0.2); Basophils Percent Auto 0.7 % (0-2); Eosinophils Absolute Auto 0.4 X10*3/uL (0.0-0.4); Eosinophils Percent Auto 5.4 % (0-4); Hematocrit 46.3 % (42-52); Hemoglobin 15.8 g/dl (14.0-18.0); Imm Gran Abs Auto 0.04 X10*3/uL (0.00-0.03); Imm Gran Pct Auto 0.6 % (0.0-0.4); Lymphocytes Absolute Auto 0.8 X10*3/uL (1.2-4.9); Lymphocytes Percent Auto 11.9 % (20-40); Mean Corpuscular HGB Conc 34.1 g/dl (31.0-36.0); Mean Corpuscular Volume 90.8 fL (80-98); Monocytes Absolute Auto 0.6 X10*3/uL (0.1-1.2); Monocytes Percent Auto 8.2 % (2-11); Neutrophils Absolute Auto 5.1 X10*3/uL (2.0-8.3); Neutrophils Percent Auto 73.2 % (45-73); Platelet Count 107 X10*3/uL (160-400); Red Cell Distribution Width 12.1 % (11.0-16.0); White Blood Count 6.9 X10*3/uL (4.8-10.8)
[2020-11-13 06:56] LABS: Anion Gap 13 (12-20); Blood Urea Nitrogen 10 mg/dL (9-16); Calcium 9.3 mg/dL (8.4-10.2); Carbon Dioxide 29 mmol/L (22-29); Chloride 104 mmol/L (96-108); Creatinine Clr Calc Pharmacy 106.7; Estimated Glomerular Filt Rate > 60; Glucose Random 92 mg/dL (60-115); Sodium 142 mmol/L (135-145)
[2020-11-13 07:11] VITALS: BP 137/81; PULSE 78; RESP 22; TEMP 36.8; O2SAT 95
--- NOTE | 2020-11-13 09:03 | MHC.CM.PN ---
CM met with Patient at bedside. Patient lives in a ranch style home with his Mother, who he makes a point to say that she is an alcoholic and that he, navigates around that. Patient is here with new PE and may require new anticoagulation meds and therefor Patient is requesting a new referral to [facility]. CM has initiated and will follow for dc planning.
--- NOTE | 2020-11-13 09:51 | HO.PM.IMPN ---
Subjective Subjective Date of Service: 11/13/20 <Chinyere Hernández NP - Last Filed: 11/13/20 12:12> 11/13/20 <Felice Ibarra MD - Last Filed: 11/13/20 12:50> Interval History: Follow up PE. No chest pain or sob <Chinyere Hernández NP - Last Filed: 11/13/20 12:12> Physical Exam Vital Signs: Vital Signs: Last Vital Signs Temp 98.3 F 11/13/20 07:11 Pulse 78 11/13/20 07:11 Resp 22 H 11/13/20 07:11 BP 137/81 11/13/20 07:11 Pulse Ox 95 11/13/20 07:11 Body Mass Index 23.1 <Chinyere Hernández NP - Last Filed: 11/13/20 12:12> Appearing in no acute distress lung sounds are clear to auscultation heart regular rate rhythm, clear S1, S2 positive bowel sounds, abdomen is soft, nontender neuro patient is alert x3, no focal deficits <Chinyere Hernández NP - Last Filed: 11/13/20 12:12> Objective Data Current Medications Generic Name Dose Route Start Last Admin Trade Name Freq PRN Reason Stop Dose Admin Acetaminophen 650 mg 11/12/20 17:24 Acetaminophen 325 Mg Tablet PO Q6H PRN Pain, Mild (Pain Scale 1-3) Enoxaparin Sodium 80 mg 11/13/20 04:00 11/13/20 03:30 Enoxaparin Sodium 80 Mg/0.8 Ml Syringe SUBCUT 80 mg Q12H SANTANA Administration Ondansetron HCl 4 mg 11/12/20 17:24 Ondansetron Hcl 4 Mg/2 Ml Vial IVPUSH Q8H PRN Nausea and Vomiting Sodium Chloride 3 ml 11/13/20 00:00 11/12/20 23:14 0.9 % Sodium Chloride Flush 3 Ml Syringe IVFLUSH 3 ml QSHIFT SANTANA Administration <Chinyere Hernández NP - Last Filed: 11/13/20 12:12> Labs CBC & Chem 7: : 11/13/20 05:46 11/13/20 05:46 <Chinyere Hernández NP - Last Filed: 11/13/20 12:12> Microbiology Microbiology Results: Microbiology 11/12/20 17:40 Throat Streptococcus Rapid Screen - Final <Chinyere Hernández NP - Last Filed: 11/13/20 12:12> Assessment and Plan (1) Pulmonary embolism: Status: Acute <Chinyere Hernández NP - Last Filed: 11/13/20 12:12> Assessment and Plan: 55 year old man admitted with multiple bilateral central pulmonary emboli with high clot burden. Pulmonary embolism. Unprovoked, hx of DVT in the past not on anticoagulation. -change lovenox to xarelto -Echocardiogram pending -heme work up, hematology consultation -bilateral venous Doppler ultrasound pending Elevated blood pressure reading. No history of hypertension. Better today May be anxiety related. -trend Diarrhea. Started after antibiotic treatment for dental procedure. No diarrhea. -check C diff Throat pain. No recent illness. No cough strep negative -throat culture pending DVT prophylaxis with Lovenox. DISPO: Home tomorrow after echo Attending: Dr. Ibarra <Chinyere Hernández NP - Last Filed: 11/13/20 12:12> (2) Blood clot in vein: Status: Acute <Chinyere Hernández NP - Last Filed: 11/13/20 12:12> Assessment and Plan: I saw the patient along side mid level, I agree management as stated above, hold dc and get echo tomorrow continue Lovenox or can transition to Xarelto <Felice Ibarra MD - Last Filed: 11/13/20 12:50>
[2020-11-13] MEDS: 0.9 % Sodium Chloride Flush 3 ML SYRINGE IVFLUSH ×2 (11:41→16:54)
[2020-11-13 11:44] LABS: Glucose, Whole Blood 142 mg/dL (60-115)
[2020-11-13 12:00] VITALS: BP 127/78; PULSE 86; RESP 16; TEMP 36.3; O2SAT 97
[2020-11-13 14:31] LABS: CDIFF Ag Negative (Negative); CDiff Toxin Negative (Negative)
[2020-11-13 14:32] LABS: CDIFF Internal ctrl Dots and bkg OK (V)
--- NOTE | 2020-11-13 14:39 | P.CNHO_ITS ---
Subjective - Subjective Chief complaint: Conulst for P.E. Patient: new to practice Consult date: 11/13/20 Primary Care Provider: MD Edgar Ceballos, Medical Summary: DIAGNOSIS: P.E. DVT. HPI - Consult Narrative Reason for consult: Consult for P.E. Narrative: Spencer Andrews is a pleasant 55 year old gentleman, presenting to the ER with chest pressure and shortness of breath. He reported this is ongoing over the last 3 days. He also had some anterior chest wall pain that comes and goes. 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 He saw his primary care provider in the beginning of October. At that time he was tachycardic. This was thought to be related to acid reflux. 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 He was on warfarin for several months but came off of it because he decided to do more natural remedies. He works in [employer] and tries to do more natural health improving methods. He had been well up until month ago, when he had 2 root canals and was placed on antibiotics. He subsequently developed frequent diarrhea, watery stools. It is subsiding. The diarrhea was thought to be related to the antibiotics. Chest CTA showed: Multiple bilateral central pulmonary emboli with high clot burden. He is not noted to be hypoxic and not requiring any oxygen. He was given a dose of therapeutic Lovenox. He is feeling better. ROS: Feels fatigued. Has a good apetite. No H.A/ Dizziness. No CP/SOB. No abd pain , N/V, nor ht burn Has has diarrhea for few weeks. No dysuria/hematuria. No depression. PMH: He was actually seen by me on December/2037 light 14 on account of left lower extremity DVT. He was very active during that summer. 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 However he was rather sedentary during winter. He also liked to meditating for hours and hours. In August he noted soreness of the leg. September 21 he had an ultrasound of the left leg which revealed: Extensive partially occlusive thrombus in the left greater saphenous vein from ankle to the thigh, extending near the saphenofemoral junction. He was started on Lovenox and bridged to Coumadin. He took the warfarin for 18 days and then decided to stop on account of side effects. He wanted to try natural measures. Ultrasound in December revealed complete resolution. A workup for hypercoagulable state was done. This came back negative. Homocystine was 11.6. Fibrinogen 271. Factor 8 assay is were normal. Review of Systems - Constitutional Reports system reviewed and no additional complaints, except as documented - Eyes Reports system reviewed and no additional complaints, except as documented - ENT Reports system reviewed and no additional complaints, except as documented - Cardiovascular Reports system reviewed and no additional complaints, except as documented - Respiratory Reports no additional respiratory complaints - Gastrointestinal Reports system reviewed and no additional complaints, except as documented - Genitourinary Genitourinary: Reports no additional male genitourinary complaints - Musculoskeletal Reports system reviewed and no additional complaints, except as documented - Integumentary/Breasts Skin/Breast: Reports no additional skin complaints - Neurologic Reports system reviewed and no additional complaints, except as documented - Psychiatric Reports system reviewed and no additional complaints, except as documented - Endocrine Reports no additional endocrine complaints - Hematologic/Lymphatic Reports system reviewed and no additional complaints, except as documented - Allergic/Immunologic Reports system reviewed and no additional complaints, except as documented Oncology Screenings - ECOG Performance Status ECOG Performance Status: 0 [facility] Medical History: Medical History (Last Reviewed 11/12/20 @ 23:11 by Deborah Vega RN) Blood clot in vein Functional capacity: independent ambulation Patient : No Social History: Social History (Last Reviewed 11/13/20 @ 00:07 by Deborah Vega RN) Living Situation History: Household Members: Family Household Members Other:: mother Housing: House Do you presently have visiting nurse or other home services: No Alcohol History: Alcohol intake: never Tobacco History: Smoking Status: Former smoker Occupation Assessmet: service: No Current occupational status: employed Smoking status: Former smoker Home Medications and Allergies Current Medications: Current Medications Generic Name Dose Route Start Last Admin Trade Name Freq PRN Reason Stop Dose Admin Acetaminophen 650 mg 11/12/20 17:24 Acetaminophen 325 Mg Tablet PO Q6H PRN Pain, Mild (Pain Scale 1-3) Ondansetron HCl 4 mg 11/12/20 17:24 Ondansetron Hcl 4 Mg/2 Ml Vial IVPUSH Q8H PRN Nausea and Vomiting Rivaroxaban 15 mg 11/13/20 17:00 Rivaroxaban 15 Mg Tablet PO BIDWM SANTANA Sodium Chloride 3 ml 05/02/21 00:00 11/13/20 11:41 0.9 % Sodium Chloride Flush 3 Ml Syringe IVFLUSH 3 ml QSHIFT [facility] Administration Home Medications Medication Instructions Recorded Confirmed Type multivitamin 1 tab PO DAILY 11/12/20 11/12/20 History Allergies Allergy/AdvReac Type Severity Reaction Status Date / Time prednisone Allergy Unknown Unknown Verified 11/12/20 12:11 warfarin [From COUMADIN] Allergy Unknown UNKNOWN Unverified 03/31/20 14:45 amoxicillin AdvReac Diarrhea Verified 11/12/20 12:11 Physical Exam Vital signs: Vital Signs Temp 97.4 F 11/13/20 12:00 Pulse 86 11/13/20 12:00 Resp 16 11/13/20 12:00 BP 127/78 11/13/20 12:00 Pulse Ox 97 11/13/20 12:00 Intake & Output 11/12/20 11/13/20 11/13/20 18:59 06:59 18:59 Intake Total 180 / 180 Output Total 1000 / 1000 500 / 500 Balance -820 / -820 -500 / -500 Urine Output (Average ml/kg/hr) 1.11 0.56 Intake: Intake, Oral Amount 180 / 180 Output: Output, Urine Amount 1000 / 1000 500 / 500 Other: Number of Bowel Movements 1 Urine Urinal Urine Color Yellow Weight 79.746 kg 75 kg Weight in Grams 61036 Weight 75 kg - Constitutional Present: no acute distress, mild distress - Routine HEENT Exam Head: Present: normal inspection ENT: Present: mucous membranes moist - Routine Neck Exam Present: supple - Routine Respiratory Exam Present: CTAB - Routine Abdominal Exam Present: soft, nontender - Routine Rectal Exam Patient deferred: digital exam - Routine Extremities Exam Present: nontender - Routine Back/Spine/Pelvis Exam Back/Spine: Present: full ROM - Routine Skin Exam Present: intact - Routine Neurological Exam Present: alert, oriented X3 - Detailed Neurological Exam: Coma Scale Eye Opening: Spontaneous (4) - Routine Psychiatric Exam Present: normal affect Hem/Onc Consult Result - Labs CBC & Chem 7: 11/13/20 05:46 11/13/20 05:46 Labs: Short CBC 11/13/20 Range/Units 05:46 WBC 6.9 (4.8-10.8) X10*3/uL Hgb 15.8 (14.0-18.0) g/dl Hct 46.3 (42-52) % Plt Count 107 L (160-400) X10*3/uL BMP 11/13/20 05:46 Sodium 142 Potassium 4.0 Chloride 104 Carbon Dioxide 29 BUN 10 Creatinine 0.82 Calcium 9.3 Assessment and Plan (1) Pulmonary embolism Status: Acute This is a 55 year old man with a H/O DVT in 2012. He was maintained on Warfarin for several months. He elected to discontinue of his own accord. 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 U/S of L.E: No DVT demonstrated in the right lower extremity. Acute DVT present left lower extremity as described above. Multiple bilateral central pulmonary emboli. High clot burden. There is no septal deviation or reflux of contrast into the hepatic veins. No suspicious mass in the abdomen or pelvis. No etiology for diarrhea demonstrated. He has been started on Lovenox. He has remained stable overnight. Denies SOB. O2 sats are normal. PLAN: He can be switched to an oral NOAC. He would also need work up for hypercoaguleable state. Can do that on an outpatient basis. I did reiterate to him that he needs to continue the medical therapy i.e. anticoagulation for at least 6 months since he had a PE and that is more risky. I would not advise that he try natural measures, at least up front. Thanks, CC: Dr. Valdez.
[2020-11-13 15:37] VITALS: BP 128/76; PULSE 68; RESP 16; TEMP 37.2; O2SAT 96
[2020-11-13] MEDS: Rivaroxaban 15 MG TABLET PO (16:52)
[2020-11-13 19:08] VITALS: BP 132/79; PULSE 64; RESP 16; TEMP 37.2; O2SAT 97
[2020-11-13 23:48] VITALS: BP 138/84; PULSE 68; RESP 18; TEMP 36.6; O2SAT 97
[2020-11-14] MEDS: 0.9 % Sodium Chloride Flush 3 ML SYRINGE IVFLUSH ×2 (00:13→07:42)
[2020-11-14 03:15] VITALS: BP 126/77; PULSE 54; RESP 18; TEMP 37.1; O2SAT 96
[2020-11-14 07:37] VITALS: BP 127/78; PULSE 65; RESP 20; TEMP 37.2; O2SAT 98
[2020-11-14] MEDS: Rivaroxaban 15 MG TABLET PO (07:42)
--- NOTE | 2020-11-14 07:55 | P.DS_ITS ---
DS: Providers Provider Date of Service: 11/14/20 <Chinyere Hernández NP - Last Filed: 11/14/20 10:02> 11/14/20 <Felice Ibarra MD - Last Filed: 11/14/20 13:34> Date of admission: 11/12/20 17:24 <Chinyere Hernández NP - Last Filed: 11/14/20 10:02> Date of discharge: 11/14/20 <Chinyere Hernández NP - Last Filed: 11/14/20 10:02> Primary care physician: Andre Valdez MD <Chinyere Hernández NP - Last Filed: 11/14/20 10:02> Admitting clinician: Chinyere Hernández <Chinyere Hernández NP - Last Filed: 11/14/20 10:02> Attending physician on admission: Felice Ibarra <Chinyere Hernández NP - Last Filed: 11/14/20 10:02> Consults: 11/12/20 18:17 Consult to Hematology / Oncology Routine Consulting Provider: Andrew Lopez Reason for consultation: PE, hx DVT not on anticoagulation Has provider been notified: No <Chinyere Hernández NP - Last Filed: 11/14/20 10:02> Attending physician on discharge: Felice Ibarra <Chinyere Hernández NP - Last Filed: 11/14/20 10:02> Discharging clinician: Chinyere Hernández <Chinyere Hernández NP - Last Filed: 11/14/20 10:02> DS: Diagnosis Discharge Diagnosis (1) Pulmonary embolism: Status: Acute <Chinyere Hernández NP - Last Filed: 11/14/20 10:02> (2) Blood clot in vein: Status: Acute <Chinyere Hernández NP - Last Filed: 11/14/20 10:02> DS: Medications Discharge Medications Home Medications: Home Medications Medication Instructions Recorded Confirmed multivitamin 1 tab PO DAILY 11/12/20 11/12/20 <Chinyere Hernández NP - Last Filed: 11/14/20 10:02> DS: Summary Hospital Course Hospital Course: 85-year-old man presenting to the ER with chest pressure and shortness of breath. He reports this is ongoing over the last 3 days he also had some anterior chest wall pain that comes and goes. 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 He reports that he saw his primary care provider in the beginning of October and at that time was tachycardic and this was thought to be related to acid reflux. 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 He was on warfarin for several months but came off of it because he decided to do more natural remedies. He reports that he works in [employer] and tries to do more natural health improving methods. He reports he had been well up until month ago when he had 2 root canals and was placed on antibiotics and subsequently developed frequent diarrhea, watery stools for about 4 weeks. He reports that it is subsiding but it is still present. the diarrhea was thought to be related to the antibiotic he was treated with. Today in the ER chest CTA showed multiple bilateral central pulmonary emboli with high clot burden. He is not noted to be hypoxic and not requiring any oxygen. He was given a dose of therapeutic Lovenox. To be admitted for further management and treatment of acute pulmonary embolus. Spontaneous pulmonary embolism with left lower extremity DVT. There was shortness of breath initially. This did improve. He was initially started on therapeutic Lovenox and then transitioned to Xarelto which he will continue as outpatient. He was seen and examined by Hematology. Hypercoagulable workup is in process as well as echocardiogram. He will follow-up with Hematology as outpatient and his primary care provider. It is possible he may need lifelong anticoagulation as he has a history of spontaneous DVT approximately 6 years ago. Attending: Dr. Ibarra I saw pt and discussed discharge plan with STEAM PIPE FITTER and agree with finding, plan and post discharge care as outline in STEAM PIPE FITTER note. <Chinyere Hernández NP - Last Filed: 11/14/20 10:02> Time Spent with Patient Time attestation: Total time spent providing and/or coordinating discharge services: <Chinyere Hernández NP - Last Filed: 11/14/20 10:02> Discharge coordination time: Greater than 30 minutes <Chinyere Hernández NP - Last Filed: 11/14/20 10:02> Physical Exam Vital Signs: Vital Signs: Last Vital Signs Temp 98.9 F 11/14/20 07:37 Pulse 65 11/14/20 07:37 Resp 20 11/14/20 07:37 BP 127/78 11/14/20 07:37 Pulse Ox 98 11/14/20 07:37 Body Mass Index 23.1 <Chinyere Hernández NP - Last Filed: 11/14/20 10:02> Appearing in no acute distress head is normocephalic atraumatic eyes pupils are PERRLA sclera is anicteric mouth throat mucous membranes are intact and moist neck is supple no lymphadenopathy, no JVD noted lung sounds are clear to auscultation heart regular rate rhythm, clear S1, S2 positive bowel sounds, abdomen is soft, nontender neuro patient is alert x3, no focal deficits <Chinyere Hernández NP - Last Filed: 11/14/20 10:02> DS: Data Data Completed and Pending Labs on day of discharge: Laboratory Results - last 24 hr 11/13/20 11/13/20 11:38 13:15 POC Glucose 142 H C. difficile Toxin A&B Negative C. difficile Antigen Negative C. difficile Interpret SEE NOTE Preliminary micro results at discharge 11/12/20 14:13 Blood Culture - Preliminary Blood - Venous No growth after 24 hours. 11/12/20 13:16 Blood Culture - Preliminary Blood - Venous No growth after 24 hours. <Chinyere Hernández NP - Last Filed: 11/14/20 10:02> Discharge Plan Discharge Anticipated Discharge Date/Time: 11/14/20 07:48 <Chinyere Hernández NP - Last Filed: 11/14/20 10:02> Patient Disposition: Home, Self-Care <Chinyere Hernández NP - Last Filed: 11/14/20 10:02> Discharge Diagnosis: Pulmonary embolus DVT <Chinyere Hernández NP - Last Filed: 11/14/20 10:02> Pulmonary embolus DVT <Felice Ibarra MD - Last Filed: 11/14/20 13:34> Referrals: Andrew Lopez MD [Physician] - 1 Week Andre Valdez MD [Primary Care Provider] - 1 Week <Chinyere Hernández NP - Last Filed: 11/14/20 10:02> Discharge Medications: New Xarelto 15 mg Tablet 15 mg PO BIDWM Qty: 40 RF: 0 Xarelto 20 mg tablet 20 mg PO DAILY Qty: 30 RF: 0 Continued multivitamin 1 tab PO DAILY RF: 0 <Chinyere Hernández NP - Last Filed: 11/14/20 10:02> Discharge Orders: Discharge Order (Routine); Ordered 11/14/20 Ordered By: Chinyere Hernández <Chinyere Hernández NP - Last Filed: 11/14/20 10:02> Diet: advance to usual diet <Chinyere Hernández NP - Last Filed: 11/14/20 10:02> advance to usual diet <Felice Ibarra MD - Last Filed: 11/14/20 13:34> Activity on Discharge: As tolerated <Chinyere Hernández NP - Last Filed: 11/14/20 10:02> As tolerated <Felice Ibarra MD - Last Filed: 11/14/20 13:34> Stand Alone Forms: Patient Portal Discharge page <Chinyere Hernández NP - Last Filed: 11/14/20 10:02> Care Plan Goals: Continue taking new medication for pulmonary embolus Eventual resolution of pulmonary embolus and DVT <Chinyere Hernández NP - Last Filed: 11/14/20 10:02> Health Concerns: Unprovoked pulmonary embolus DVT <Chinyere Hernández NP - Last Filed: 11/14/20 10:02> Plan of Treatment: Follow-up with primary care provider as needed Take new medications as prescribed and follow-up with steamboat captain, Dr. Lopez at [facility] for further workup and instructions. <Chinyere Hernández NP - Last Filed: 11/14/20 10:02> Assessment: See discharge summary <Chinyere Hernández NP - Last Filed: 11/14/20 10:02> Discharge Date/Time: 11/14/20 13:09 <Chinyere Hernández NP - Last Filed: 11/14/20 10:02>
--- NOTE | 2020-11-14 09:40 | MHC.CM.PN ---
pt dcd vna not ordered by pt given xarelto phamplet to assist with cost pt has own transprtaion home
[2020-11-14 11:32] VITALS: BP 131/76; PULSE 70; RESP 20; TEMP 37.2; O2SAT 97
[2020-11-14 14:27] LABS: PTT (LAC) Screen 35 sec (< OR = 40)
--- NOTE | 2020-11-14 17:24 | CA_ITS ---
Transthoracic Echocardiogram Patient (Last, First, Middle): Spencer Andrews, Gender: Male Date of : 1965 Age: 55 Procedure Date: 11/14/2020 Procedure Type: Transthoracic Echocardiogram Location: [facility] [place] Height: 180.34 cm Weight: 74.84 kg BSA: 1.94 m2 Heart Rate: bpm BP: 126 / 77 mmHg Heating And Ventilating Tender: FABIO Referring MD: Chinyere Hernández NP Symptoms: PE with clot burden Study Quality: Good ECG Rhythm: Sinus Conclusions: - The left ventricular systolic function is normal. The visually estimated ejection fraction is between 60-65%. - No obvious valvular pathology seen on this study. - The pulmonary artery systolic pressure is normal. Findings Left Ventricle Normal left ventricular cavity size. There is mildly increased left ventricular wall thickness. The left ventricular systolic function is normal. The visually estimated ejection fraction is between 60-65%. There is no evidence of regional wall motion abnormalities. Diastolic function is normal for age. Right Ventricle Normal right ventricular cavity size and systolic function. Atria The left atrium is normal in size. The right atrium is normal in size. Aortic Valve There is a normal trileaflet aortic valve. There is mild calcification of the aortic valve. There is no aortic valve stenosis. There is no aortic valve regurgitation. Mitral Valve The mitral valve appears normal. There is trace mitral valve regurgitation. There is no mitral valve stenosis. Pulmonic Valve The pulmonic valve was not well visualized. Tricuspid Valve Normal tricuspid valve structure. There is trace tricuspid valve regurgitation. The pulmonary artery systolic pressure is normal. Great Vessels The asc aorta and aortic arch are normal in size. Venous The inferior vena cava is normal in size and collapses greater than 50% with inspiration. Pericardium/Pleural There is no evidence of pericardial effusion. Prior Study Comparison No prior study available for comparison. Recommendations, Care & Conclusions No obvious valvular pathology seen on this study. Measurements 2D Linear Measurements IVSd: 1.08 0.6-0.9/0.6-1.0 cm LVIDd: 3.78 3.9-5.3/4.2-5.9 cm LVIDd Index: 1.95 2.4-3.2/2.2-3.1 cm/m2 LVIDs: 2.71 2.0-3.6 cm LVPWd: 1.06 0.7-1.1 cm Ao Root: 3.80 2.1-3.5 cm LA Diam: 3.40 2.7-3.8/3.0-4.0 cm LAIDs Index: 1.75 1.5-2.3 cm/m2 LV Mass: 159.60 67-162/88-224 g LV Mass Index: 82.27 43-95/49-115 g/m2 LVOT Diam: 2.10 3.0+(-)1.3 cm 2D Systolic Function EF 4C: 63.70 >55% EF 2C: 53.50 >55% EF BiP: 58.50 >55% Mitral Valve MV Pk E: 0.79 MV PK A: 0.67 MV Decel Time: 310.00 E/A: 1.20 E'Lateral: 12.60 E'Medial: 7.93 E/E' Med: 9.90 E/E' Lat: 6.20 PHT: 91.00 MVA PHT: 2.42 Decel Norton: 2.54 Aortic Valve AoV Pk Navin: 1.43 AoV Mn Navin: 0.94 AoV VTI: 0.30 AoV Pk Grad: 8.00 Aov Mn Grad: 4.00 CALE Cont.VTI: 2.72 LVOT LVOT Pk Navin: 1.15 LVOT Mn Navin: 0.70 LVOT VTI: 0.24 LVOT Pk Grad: 5.00 LVOT Mn Grad: 2.00 LVOT Diam: 2.10 LVOT Area: 3.46 Diastolic Function MV Pk E: 0.79 MV Pk A: 0.67 E/A: 1.20 E'Medial: 7.93 E/E' Med: 9.90 E' Laterial: 12.60 E/E' Lat: 6.20 Tricuspid Valve TR Pk Navin: 2.46 TR Pk Grad: 24.00 RA Press: 3.00 RVSP: 27.00 Great Vessels Aorta Ao Root-2D: 3.80 2.0-3.7 cm Ao Asc: 2.90 2.1-3.4 cm Ao Arch: 2.50 Updated in Other Vendor System with Status of Final Gabe Frances MD electronically signed on 11/14/2020 10:52:00 AM with status of Final
[2020-11-14 17:36] LABS: Homocysteine 9.1 umol/L (<11.4)
[2020-11-16 15:56] LABS: Cardiolipin IgG Ab <14 GPL; Cardiolipin IgM Ab <12 MPL
[2020-11-16 21:31] LABS: Anti-Thrombin III Antigen 94 % (80-120)
[2020-11-16 21:57] LABS: Protein C Activity 90 % (70-180); Protein S Activity rflx Tot&Fr 109 % (70-150)
[2020-11-17 19:21] LABS: Factor V Leiden NEGATIVE
[2020-11-18 22:21] LABS: Prothrombin 20210A NEGATIVE
== END 2020-11-14 13:09 | disposition home or self-care (01) | DRG 197 ==
LOC: HO.ED 16:45 → HO.EDOVER 17:40 → HO.IMC 19:33
PROVIDERS: Nurse Practitioner Acute Care; Physician Assistant Medical; Admitting Provider Internal Medicine; Emergency Provider Emergency Medicine; PCP Internal Medicine; Visit Provider Internal Medicine
DX: I82.452 Acute embolism and thrombosis of left peroneal vein (principal); I26.99 Other pulmonary embolism without acute cor pulmonale; K52.1 Toxic gastroenteritis and colitis; R03.0 Elevated blood-pressure reading, without diagnosis of hypertension; T36.95XA Adverse effect of unspecified systemic antibiotic, initial encounter; Y92.9 Unspecified place or not applicable; Z20.822 Contact with and (suspected) exposure to COVID-19; Z86.718 Personal history of other venous thrombosis and embolism; Z87.891 Personal history of nicotine dependence; Z79.899 Other long term (current) drug therapy
CPT/HCPCS: 0241U; 36415; 71045; 71275; 73080; 74177; 80048; 80053; 80076; 81003; 81240; 81241; 82728; 82947; 83090; 83605; 83615; 83735; 83880; 84145; 84484; 85025; 85301; 85302; 85303; 85305; 85306; 85379; 85597; 85610; 85613; 85730; 86140; 86147; 87040; 87071; 87324; 87449; 87880; 93005; 93306; 93970; 96372; 99285; 99291; J1650; Q9967

== ENCOUNTER 2020-12-21 16:51 | Outpatient (REF) | payer OTHER, SELFPAY ==
[2020-12-21 17:34] LABS: MANUAL DIFF FLAG NO
[2020-12-21 17:36] LABS: Basophils Absolute Auto 0.1 X10*3/uL (0.0-0.2); Basophils Percent Auto 0.6 % (0-2); Eosinophils Absolute Auto 0.3 X10*3/uL (0.0-0.4); Eosinophils Percent Auto 3.5 % (0-4); Hematocrit 45.9 % (42-52); Hemoglobin 15.3 g/dl (14.0-18.0); Imm Gran Abs Auto 0.03 X10*3/uL (0.00-0.03); Imm Gran Pct Auto 0.4 % (0.0-0.4); Lymphocytes Absolute Auto 1.1 X10*3/uL (1.2-4.9); Lymphocytes Percent Auto 12.9 % (20-40); Mean Corpuscular HGB Conc 33.3 g/dl (31.0-36.0); Mean Corpuscular Volume 92.9 fL (80-98); Mean Platelet Volume 12.8 fL (9.4-12.4); Monocytes Absolute Auto 0.6 X10*3/uL (0.1-1.2); Monocytes Percent Auto 7.5 % (2-11); Neutrophils Absolute Auto 6.3 X10*3/uL (2.0-8.3); Neutrophils Percent Auto 75.1 % (45-73); Platelet Count 156 X10*3/uL (160-400); Red Blood Count 4.94 X10*6/uL (4.60-5.80); Red Cell Distribution Width 12.5 % (11.0-16.0); White Blood Count 8.3 X10*3/uL (4.8-10.8)
[2020-12-21 18:05] LABS: Alanine Aminotransferase 37 U/L (0-40); Albumin Level 4.7 g/dL (3.5-5.0); Alkaline Phosphatase 94 U/L (39-117); Aspartate Amino Transferase 34 U/L (5-37); Bilirubin Total 0.4 mg/dL (0.0-1.0); Blood Urea Nitrogen 18 mg/dL (9-16); Calcium 9.8 mg/dL (8.4-10.2); D Dimer < 200 NG/ML; Estimated Glomerular Filt Rate > 60; Glucose Random 100 mg/dL (60-115); Total Protein 7.1 g/dL (6.5-8.0)
[2020-12-21 18:12] LABS: Anion Gap 13 (12-20); Carbon Dioxide 28 mmol/L (22-29); Chloride 104 mmol/L (96-108); Potassium 3.8 mmol/L (3.3-5.1); Sodium 141 mmol/L (135-145)
[2020-12-22 14:22] LABS: Lyme Abs Screen <0.90 index
== END 2020-12-21 16:52 | disposition home or self-care (01) ==
LOC: HO.LAB 16:51
PROVIDERS: PCP Internal Medicine; Visit Provider Internal Medicine
DX: I82.409 Acute embolism and thrombosis of unspecified deep veins of unspecified lower extremity (principal); I26.99 Other pulmonary embolism without acute cor pulmonale; T14.8XXA Other injury of unspecified body region, initial encounter; W57.XXXA Bitten or stung by nonvenomous insect and other nonvenomous arthropods, initial encounter; Y93.9 Activity, unspecified; Y92.9 Unspecified place or not applicable; Y99.9 Unspecified external cause status
CPT/HCPCS: 36415; 80053; 85025; 85379; 86617; 86618

== ENCOUNTER 2021-06-27 08:23 | Outpatient (REF) | payer OTHER, SELFPAY ==
[2021-06-27 08:43] LABS: MANUAL DIFF FLAG NO
[2021-06-27 09:32] LABS: Basophils Absolute Auto 0.1 X10*3/uL (0.0-0.2); Basophils Percent Auto 1.2 % (0-2); Eosinophils Absolute Auto 0.2 X10*3/uL (0.0-0.4); Eosinophils Percent Auto 4.7 % (0-4); Hematocrit 46.2 % (42.0-52.0); Hemoglobin 15.4 g/dl (14.0-18.0); Imm Gran Abs Auto 0.02 X10*3/uL (0.00-0.03); Imm Gran Pct Auto 0.4 % (0.0-0.4); Lymphocytes Absolute Auto 0.8 X10*3/uL (1.2-4.9); Lymphocytes Percent Auto 16.2 % (20-40); Mean Corpuscular HGB Conc 33.3 g/dl (31.0-36.0); Mean Corpuscular Hemoglobin 31.5 pg (27.0-33.0); Mean Corpuscular Volume 94.5 fL (80.0-98.0); Mean Platelet Volume 13.8 fL (9.4-12.4); Monocytes Absolute Auto 0.5 X10*3/uL (0.1-1.2); Monocytes Percent Auto 9.9 % (2-11); Neutrophils Absolute Auto 3.4 x10*3/uL (2.0-8.3); Neutrophils Percent Auto 67.6 % (45-73); Platelet Count 125 X10*3/uL (160-400); Red Blood Count 4.89 X10*6/uL (4.60-5.80); Red Cell Distribution Width 12.4 % (11.0-16.0); White Blood Count 5.1 X10*3/uL (4.8-10.8)
[2021-06-27 09:37] LABS: D Dimer High Sensitivity 153 NG/ML
[2021-06-27 10:05] LABS: Alanine Aminotransferase 28 U/L (0-40); Albumin Level 4.4 g/dL (3.5-5.0); Alkaline Phosphatase 77 U/L (39-117); Anion Gap 11 (12-20); Aspartate Amino Transferase 29 U/L (5-37); Bilirubin Total 0.9 mg/dL (0.0-1.0); Blood Urea Nitrogen 18 mg/dL (9-16); Calcium 9.5 mg/dL (8.4-10.2); Carbon Dioxide 29 mmol/L (22-29); Chloride 105 mmol/L (96-108); Cholesterol 189 mg/dL; Estimated Glomerular Filt Rate > 60; Glucose Fasting 86 mg/dL (60-99); HDL Cholesterol 53 mg/dL; LDL Cholesterol Calculated 122 mg/dl; Potassium 4.2 mmol/L (3.3-5.1); Sodium 141 mmol/L (135-145); Total Protein 6.7 g/dL (6.5-8.0); Triglycerides 73 mg/dL
[2021-06-27 10:14] LABS: Vitamin D 25-OH Total 37.2 ng/mL (>30)
[2021-06-28 11:11] LABS: Free Prostate Spec Ag 0.2 ng/mL; Percent Free Prostate Spec Ag 33 % (calc) (>25); Prostate Specific Ag Total 0.6 ng/mL (< OR = 4.0)
== END 2021-06-27 08:24 | disposition home or self-care (01) ==
LOC: HO.LAB 08:23
PROVIDERS: PCP Internal Medicine; Visit Provider Internal Medicine
DX: Z12.5 Encounter for screening for malignant neoplasm of prostate (principal); N40.0 Benign prostatic hyperplasia without lower urinary tract symptoms; R21 Rash and other nonspecific skin eruption; Z86.718 Personal history of other venous thrombosis and embolism
CPT/HCPCS: 36415; 80053; 80061; 82306; 84154; 85025; 85379

== ENCOUNTER 2021-08-30 01:56 | Emergency (ER) | payer OTHER, SELFPAY ==
--- NOTE | ~2021-08-30 | US_ITS ---
EXAMINATION: US VENOUS ULTRASOUND WITH DOPPLER LOWER EXTREMITY, LEFT CLINICAL INFORMATION: History of DVTs and pulmonary emboli. COMPARISON: 11/12/2020 TECHNIQUE: Ultrasound of the deep veins is performed from the hip to the calf with compression sonography and color and pulse Doppler assessment. Spectral analysis with color-flow imaging is performed. FINDINGS: There is normal venous compression and respiratory variation and augmented flow. The visualized common femoral vein, superficial femoral vein, profunda femoral vein, popliteal vein, and the trifurcation region shows no evidence of deep venous thrombosis. There is a noncompressible superficial vein along the medial calf. There is no significant popliteal fossa cyst. US/US venous duplex LE LT IMPRESSION: No DVT demonstrated in the left lower extremity. Superficial venous thrombosis along the medial calf.
[2021-08-30 02:06] VITALS: BP 143/103; PULSE 85; RESP 16; TEMP 37; O2SAT 99; BMI 23.0
--- NOTE | 2021-08-30 02:31 | PC.NURSE ---
pt left leg lateral calf warm to touch, negative floyd sign, pt has no difficuty breathing.
--- NOTE | 2021-08-30 03:28 | ED.EXTPRO ---
HPI - Extremity Problem General Chief complaint: Extremity Problem Stated complaint: L leg pain (bloodclot? had one in past & in lungs) Time Seen by Provider: 08/30/21 02:05 Source: patient Mode of arrival: ambulatory Limitations: no limitations History of Present Illness HPI Narrative: Patient comes to the emergency room complaining of left calf pain for about 3 weeks. Patient states that he has had DVTs in his left leg and also pulmonary embolisms. Patient states that he finished taking Xarelto for 7 months in May of 2021. Patient on her varicose veins, but states that this time the pain feels deeper. Related Data Home Medications Medication Instructions Recorded Confirmed calcium phosphate,dibasic 77 400 tab PO DAILY 11/21/20 06/26/21 mg-vitamin D3 400 unit tablet multivitamin 1 tab PO DAILY 06/26/21 06/26/21 Allergies Allergy/AdvReac Type Severity Reaction Status Date / Time prednisone Allergy Unknown Unknown Verified 08/30/21 02:10 warfarin [From COUMADIN] Allergy Unknown UNKNOWN Verified 08/30/21 02:10 amoxicillin AdvReac Diarrhea Verified 08/30/21 02:10 Review of Systems Review of Systems: Constitutional : No Weight loss, No Fever, No Chills, No Night Sweats, No Fatigue, No Malaise ENT/Mouth : No Hearing loss, No Ear Pain, No Nasal Congestion, No Sinus Pain, No Hoarseness, No sore throat, No Rhinorrhea, No Swallowing Difficulty Eyes: No Eye Pain, No Swelling, No Redness, No Foreign Body, No Discharge, No Vision Changes Cardiovascular : No Chest Pain, No SOB, No Dyspnea on Exertion, No Orthopnea, No Edema, No Palpitations Respiratory : No Cough, No Sputum, No Wheezing, No Smoke Exposure, No Dyspnea Gastrointestinal : No Nausea, No Vomiting, No Diarrhea, No Constipation, No abdominal Pain, No Hematochezia, No Melena Genitourinary : no irregular bleeding, No Dysuria, No Urinary Frequency, No Hematuria, No Urinary Incontinence, No Urgency, No Flank Pain, No Urinary Flow Changes, No Hesitancy Musculoskeletal : No joint pain, complaining of left calf pain Skin : No Skin Lesions, No rash Neuro : No Weakness, No Numbness, No Paresthesias, No Loss of Consciousness, No Dizziness, No Headache Psych : No Anxiety/Panic, No Depression, No SI/HI/AH/VH, No Social Issues, Heme/Lymph: No Bruising, No Bleeding,No Lymphadenopathy Endocrine : No Polyuria, No Polydipsia, No Temperature Intolerance [facility] Past Medical History Medical History Blood clot in vein DVT (deep venous thrombosis) Hx of varicose veins of lower extremity Vitiligo Surgical History Hx of nasal polypectomy Hx of varicose vein ligation and stripping Family History Family History Father Poor circulation Mother Cyst COPD (chronic obstructive pulmonary disease) Acid reflux disease Sister Cyst Brother Bone cancer Paternal Aunt Lupus Social History Social History (Updated 06/26/21 @ 09:41 by Katelin Dominguez) Household Members: Family Household Members Other:: mother Housing: House Do you presently have visiting nurse or other home services: No Alcohol intake: current Alcohol intake frequency: holidays/special occasions only Patient Tobacco Use Status: Never used Tobacco Advance Directives: No service: No Current occupational status: employed Physical Exam Vital Signs: Vital Signs: Last Vital Signs Temp 98.6 F 08/30/21 02:06 Pulse 67 08/30/21 04:00 Resp 20 08/30/21 04:00 BP 125/78 08/30/21 04:00 Pulse Ox 99 08/30/21 04:00 BMI result Body Mass Index 23.0 Const: Other: Appearance: Alert. Oriented X3. No acute distress. Eyes: Pupils equal, round and reactive to light. ENT: Pharynx normal. Neck: Normal inspection. Neck supple. No lymph nodes noted. No crepitus CVS: Normal heart rate and rhythm. Pulses normal. Normal S1 and S2 Respiratory: No respiratory distress. Breath sounds normal. No Wheezing. No rales Abdomen: Soft and nontender. No rigidity. No distention. Skin: Skin warm and dry. Normal skin color. Normal skin turgor. Extremities: No lower extremity edema. Pain to palpation in the left calf, palpable varicose veins, no swelling, no edema Neuro: Oriented X 3. No motor deficit. No sensory deficit. Moving all extermities. No slurred speech. Course Course Course Narrative: Patient has had this pain for approximately 3 weeks. Ultrasound to rule out DVT pending I discussed with the patient he has superficial venous thrombosis along the medial calf, no DVT. Patient does not need to be on blood thinners at this time. White blood cell count within normal limits, cellulitis not suspected. MDM - Extremity (Nontraumatic) Lab Data Result diagrams: 08/30/21 04:29 08/30/21 04:29 Labs: Lab Results 08/30/21 08/30/21 Range/Units 04:29 04:29 WBC 9.0 (4.8-10.8) X10*3/uL RBC 4.82 (4.60-5.80) X10*6/uL Hgb 15.5 (14.0-18.0) g/dl Hct 44.9 (42.0-52.0) % MCV 93.2 (80.0-98.0) fL MCH 32.2 (27.0-33.0) pg MCHC 34.5 (31.0-36.0) g/dl RDW 11.9 (11.0-16.0) % Plt Count 121 L (160-400) X10*3/uL MPV 12.7 H (9.4-12.4) fL Immature Gran % (Auto) 0.4 (0.0-0.4) % Neut % (Auto) 78.7 H (45-73) % Lymph % (Auto) 9.8 L (20-40) % [place] % (Auto) 7.7 (2-11) % Eos % (Auto) 2.8 (0-4) % Baso % (Auto) 0.6 (0-2) % Lymph # (Auto) 0.9 L (1.2-4.9) X10*3/uL [place] # (Auto) 0.7 (0.1-1.2) X10*3/uL Eos # (Auto) 0.3 (0.0-0.4) X10*3/uL Baso # (Auto) 0.1 (0.0-0.2) X10*3/uL Abs Immat Gran (auto) 0.04 H (0.00-0.03) X10*3/uL Absolute Neuts (auto) 7.1 (2.0-8.3) x10*3/uL Absolute Nucleated RBC 0.000 (0.0-0.012) X10*3/uL Nucleated RBC % (auto) 0.0 (0.0-0.2) /100WBC Sodium 142 (135-145) mmol/L Potassium 3.8 (3.3-5.1) mmol/L Chloride 105 (96-108) mmol/L Carbon Dioxide 30 H (22-29) mmol/L Anion Gap 11 L (12-20) BUN 9 (9-16) mg/dL Creatinine 0.85 (0.5-1.4) mg/dL Estim Creat Clear Calc 101.5 Estimated GFR > 60 Random Glucose 98 (60-115) mg/dL Calcium 9.4 (8.4-10.2) mg/dL Discharge Plan Discharge Clinical Impression: Superficial thrombophlebitis Patient Disposition: Home, Self-Care Instructions: Superficial Thrombophlebitis (ED) Additional Instructions: Please follow-up with your primary care physician tomorrow. If you have any worsening or new symptoms, please return to the emergency room or call 911 Prescriptions: No Action Vitamin D (with calcium) 77-400 mg-unit Tablet 400 tab PO DAILY 0RF multivitamin Tablet 1 tab PO DAILY 0RF
[2021-08-30 04:00] VITALS: BP 125/78; PULSE 67; RESP 20; O2SAT 99
[2021-08-30 04:41] LABS: Basophils Absolute Auto 0.1 X10*3/uL (0.0-0.2); Basophils Percent Auto 0.6 % (0-2); Eosinophils Absolute Auto 0.3 X10*3/uL (0.0-0.4); Eosinophils Percent Auto 2.8 % (0-4); Hematocrit 44.9 % (42.0-52.0); Hemoglobin 15.5 g/dl (14.0-18.0); Imm Gran Abs Auto 0.04 X10*3/uL (0.00-0.03); Imm Gran Pct Auto 0.4 % (0.0-0.4); Lymphocytes Absolute Auto 0.9 X10*3/uL (1.2-4.9); Lymphocytes Percent Auto 9.8 % (20-40); MANUAL DIFF FLAG NO; Mean Corpuscular HGB Conc 34.5 g/dl (31.0-36.0); Mean Corpuscular Hemoglobin 32.2 pg (27.0-33.0); Mean Corpuscular Volume 93.2 fL (80.0-98.0); Mean Platelet Volume 12.7 fL (9.4-12.4); Monocytes Absolute Auto 0.7 X10*3/uL (0.1-1.2); Monocytes Percent Auto 7.7 % (2-11); Neutrophils Absolute Auto 7.1 x10*3/uL (2.0-8.3); Neutrophils Percent Auto 78.7 % (45-73); Platelet Count 121 X10*3/uL (160-400); Red Blood Count 4.82 X10*6/uL (4.60-5.80); Red Cell Distribution Width 11.9 % (11.0-16.0)
[2021-08-30 04:55] LABS: Anion Gap 11 (12-20); Blood Urea Nitrogen 9 mg/dL (9-16); Calcium 9.4 mg/dL (8.4-10.2); Carbon Dioxide 30 mmol/L (22-29); Chloride 105 mmol/L (96-108); Creatinine Clr Calc Pharmacy 101.5; Estimated Glomerular Filt Rate > 60; Glucose Random 98 mg/dL (60-115); Potassium 3.8 mmol/L (3.3-5.1); Sodium 142 mmol/L (135-145)
== END 2021-08-30 05:26 | disposition home or self-care (01) ==
PROVIDERS: Emergency Provider Emergency Medicine; PCP Internal Medicine
DX: I80.02 Phlebitis and thrombophlebitis of superficial vessels of left lower extremity (principal); M79.605 Pain in left leg; Z86.718 Personal history of other venous thrombosis and embolism; Z86.711 Personal history of pulmonary embolism
CPT/HCPCS: 36415; 80048; 85025; 93971; 99284

== ENCOUNTER 2021-09-08 14:56 | Outpatient (REF) | payer OTHER, SELFPAY ==
--- NOTE | 2021-09-08 15:05 | ECG_ITS ---
Test Reason : PALPITATIONS Blood Pressure : / mmHG Vent. Rate : 083 BPM Atrial Rate : 083 BPM P-R Int : 168 ms QRS Dur : 086 ms QT Int : 368 ms P-R-T Axes : 078 022 069 degrees QTc Int : 432 ms Normal sinus rhythm Right atrial enlargement Borderline ECG When compared with ECG of 12-NOV-2020 12:05, No significant change was found Referred By: Andre Valdez Electronically Signed By:FLACO MEDRANO
[2021-09-08 15:11] LABS: MANUAL DIFF FLAG NO
[2021-09-08 15:16] LABS: Basophils Absolute Auto 0.1 X10*3/uL (0.0-0.2); Basophils Percent Auto 0.6 % (0-2); Eosinophils Absolute Auto 0.3 X10*3/uL (0.0-0.4); Hematocrit 45.3 % (42.0-52.0); Hemoglobin 15.2 g/dl (14.0-18.0); Imm Gran Abs Auto 0.04 X10*3/uL (0.00-0.03); Imm Gran Pct Auto 0.4 % (0.0-0.4); Lymphocytes Absolute Auto 1.3 X10*3/uL (1.2-4.9); Lymphocytes Percent Auto 14.1 % (20-40); Mean Corpuscular HGB Conc 33.6 g/dl (31.0-36.0); Mean Corpuscular Volume 92.4 fL (80.0-98.0); Mean Platelet Volume 12.9 fL (9.4-12.4); Monocytes Absolute Auto 0.6 X10*3/uL (0.1-1.2); Monocytes Percent Auto 6.4 % (2-11); Neutrophils Absolute Auto 7.1 x10*3/uL (2.0-8.3); Neutrophils Percent Auto 75.5 % (45-73); Platelet Count 143 X10*3/uL (160-400); Red Cell Distribution Width 11.9 % (11.0-16.0); White Blood Count 9.4 X10*3/uL (4.8-10.8)
[2021-09-08 15:24] LABS: D Dimer High Sensitivity 184 NG/ML
[2021-09-08 15:43] LABS: Alanine Aminotransferase 23 U/L (0-40); Albumin Level 4.5 g/dL (3.5-5.0); Alkaline Phosphatase 81 U/L (39-117); Anion Gap 12 (12-20); Aspartate Amino Transferase 26 U/L (5-37); Bilirubin Total 0.5 mg/dL (0.0-1.0); Blood Urea Nitrogen 16 mg/dL (9-16); C Reactive Protein 0.04 mg/dL (< or = 0.50); Calcium 9.9 mg/dL (8.4-10.2); Carbon Dioxide 31 mmol/L (22-29); Chloride 104 mmol/L (96-108); Estimated Glomerular Filt Rate > 60; Glucose Random 101 mg/dL (60-115); Lipase 31 U/L (8-78); Potassium 3.7 mmol/L (3.3-5.1); Sodium 143 mmol/L (135-145)
[2021-09-08 15:44] LABS: Troponin-I High Sensitivity < 3.5 ng/L (<3.5-35.0)
== END 2021-09-08 14:57 | disposition home or self-care (01) ==
LOC: HO.LAB 14:56
PROVIDERS: PCP Internal Medicine; Visit Provider Internal Medicine
DX: R00.2 Palpitations (principal); I80.9 Phlebitis and thrombophlebitis of unspecified site
CPT/HCPCS: 36415; 80053; 83690; 84484; 85025; 85379; 86140; 93005

== ENCOUNTER → 2021-10-24 11:30 | Outpatient (BNVA) | payer OTHER, SELFPAY | PROVIDERS: PCP Internal Medicine; Visit Provider Surgery Vascular Surgery | DX: I83.12 Varicose veins of left lower extremity with inflammation (principal) | CPT/HCPCS: 99202 ==

== ENCOUNTER 2021-11-28 10:28 | Outpatient (REF) | payer OTHER, SELFPAY ==
--- NOTE | ~2021-11-28 | US_ITS ---
EXAMINATION: BILATERAL LOWER EXTREMITY VENOUS ULTRASOUND (REFLUX EXAM) CLINICAL INDICATION: Lower extremity superficial venous insufficiency. History of left great saphenous vein stripping in the early . COMPARISON: Right lower extremity venous Doppler ultrasound on 08/30/2021. TECHNIQUE: Color flow triplex imaging and compression Doppler was performed to evaluate both the deep and the superficial systems bilaterally. To evaluate the superficial system, the examination was performed in the upright position. Color-flow Doppler ultrasound and compression ultrasound were utilized. In addition, maneuvers were utilized to demonstrate reflux. FINDINGS: SUPERFICIAL ULTRASOUND WITH DOPPLER OF RIGHT LOWER EXTREMITY GREAT SAPHENOUS VEIN: Saphenofemoral junction: 0.6 cm Max diameter: 0.6 cm Min diameter: 0.2 cm Reflux: There is reflux throughout the proximal great saphenous vein beginning at the junction/proximal thigh and extending to the knee measuring up to 3.4 seconds. DUPLICATED MEDIAL GREAT SAPHENOUS VEIN: Max Diameter: None Imaged Reflux: NA DUPLICATED LATERAL GREAT SAPHENOUS VEIN: Diameter: 0.3 cm at the junction Reflux: None SMALL SAPHENOUS VEIN: Proximal Calf: 0.6 cm Distal Calf: 0.3 cm Reflux: There is greater than 2.6 seconds of reflux within the proximal calf. VEIN OF GIACOMINI: None Imaged. PERFORATORS: Location: Midcalf and proximal calf measuring 2 and 3 mm respectively. Reflux: None VARICOSITIES: Location: Arising from the small saphenous vein in the calf, proximal thigh, proximal calf and at the knee measuring between 3 and 5 mm. Reflux: Reflux is demonstrated in all imaged varicosities greater than 1.5 seconds. DEEP VENOUS ULTRASOUND OF THE RIGHT LOWER EXTREMITY: Common Femoral Vein: Compressible, normal respiratory variation and augmented flow. Femoral vein: Compressible, normal color flow and augmentation. Popliteal Vein: Compressible, normal augmentation. Deep Reflux: There is no evidence of reflux in the deep system in either the common femoral vein or the popliteal vein. Carlton's Cyst: There is no evidence of a Carlton's cyst. SUPERFICIAL ULTRASOUND WITH DOPPLER OF LEFT LOWER EXTREMITY GREAT SAPHENOUS VEIN: Saphenofemoral junction: 1.0 cm Max diameter: 1.0 cm Min diameter: 0.3 cm Reflux: There is greater than 3 seconds of reflux at the saphenofemoral junction and proximal thigh. There is also reflux at the ankle up to 1.5 seconds. Additional: The great saphenous vein is occluded from the mid thigh to the midcalf consistent with prior treatment. DUPLICATED MEDIAL GREAT SAPHENOUS VEIN: Max Diameter: None Imaged Reflux: NA DUPLICATED LATERAL GREAT SAPHENOUS VEIN: Diameter: None Imaged Reflux: NA SMALL SAPHENOUS VEIN: Proximal Calf: 0.5 cm Distal Calf: 0.4 cm Reflux: There is greater than 2.2 seconds of reflux in the proximal thigh. There is gross reflux throughout the left small saphenous vein. Additional: Left small saphenous vein is completely compressible though there is minimal echogenic material within the vein possibly related to prior, partial thrombosis. VEIN OF GIACOMINI: None Imaged. PERFORATORS: Location: Distal calf, 3 mm Reflux: Greater than 1.8 seconds of reflux. VARICOSITIES: Location: Calf arising from the small saphenous vein and within the thigh arising from the great saphenous vein. Both varicosities measure between 5 and 6 mm. Reflux: Both varicosities demonstrate reflux greater than 1.1 seconds. DEEP VENOUS ULTRASOUND OF THE LEFT LOWER EXTREMITY: Common Femoral Vein: Compressible, normal respiratory variation and augmented flow. Femoral vein: Compressible, normal color flow and augmentation. Popliteal Vein: Compressible, normal augmentation. Deep Reflux: There is greater than 2.7 seconds of reflux within the popliteal vein. Carlton's Cyst: There is no evidence of a Carlton's cyst. US/US venous duplex LE BI IMPRESSION: 1. Right great saphenous venous insufficiency beginning at the junction/proximal thigh. Treatment is recommended. 2. Right small saphenous venous insufficiency beginning at the proximal thigh. Treatment is recommended. 3. Left great saphenous venous insufficiency at the saphenofemoral junction, proximal thigh and ankle. Treatment is recommended. 4. Left small saphenous venous insufficiency beginning in the proximal thigh. Treatment is recommended. 5. Bilateral refluxing varicosities. 6. Deep venous insufficiency involving the left popliteal vein. 7. No evidence of DVT.
== END 2021-11-28 10:29 | disposition home or self-care (01) ==
LOC: HO.US 10:28
PROVIDERS: Visit Provider Surgery Vascular Surgery
DX: I83.12 Varicose veins of left lower extremity with inflammation (principal)
CPT/HCPCS: 93970

== ENCOUNTER → 2021-12-05 11:02 | Outpatient (BNVA) | payer OTHER, SELFPAY | PROVIDERS: PCP Internal Medicine; Visit Provider Surgery Vascular Surgery | DX: I83.12 Varicose veins of left lower extremity with inflammation (principal) | CPT/HCPCS: 99212 ==

== ENCOUNTER → 2022-01-05 09:32 | Outpatient (BNVA) | payer OTHER, SELFPAY | PROVIDERS: PCP Internal Medicine; Visit Provider Surgery Vascular Surgery | DX: I83.12 Varicose veins of left lower extremity with inflammation (principal) | CPT/HCPCS: 36475 ==

== ENCOUNTER 2022-01-08 13:56 | Outpatient (REF) | payer OTHER, SELFPAY ==
--- NOTE | ~2022-01-08 | US_ITS ---
EXAMINATION: US VENOUS ULTRASOUND WITH DOPPLER LOWER EXTREMITY, LEFT CLINICAL INFORMATION: Followup status post GSV ablation. COMPARISON: None TECHNIQUE: Ultrasound of the deep veins is performed from the hip to the calf with compression sonography and color and pulse Doppler assessment. Spectral analysis with color-flow imaging is performed. FINDINGS: The patient is status post left great saphenous ablation with thrombus seen exiting out of the GSV into the common femoral vein. An approximately 2 cm length of thrombus extends into the great saphenous vein. The deep venous system is otherwise unremarkable. There is normal venous compression and respiratory variation and augmented flow. The visualized superficial femoral vein, profunda femoral vein, popliteal vein, and the trifurcation region shows no evidence of deep venous thrombosis. There is no significant popliteal fossa cyst. US/US venous duplex LE LT IMPRESSION: Thrombus extends from the treated left great saphenous vein into the left common femoral vein for about a 2 cm length. This critical result was discussed with Terrie at Dr. Fang's office at 14:50 on 01/08/2022, and it was ascertained that the content and urgency of the report was understood at the time of direct communication.
== END 2022-01-08 13:57 | disposition home or self-care (01) ==
LOC: HO.US 13:56
PROVIDERS: Visit Provider Surgery Vascular Surgery
DX: M79.605 Pain in left leg (principal)
CPT/HCPCS: 93971

== ENCOUNTER → 2022-01-18 14:46 | Outpatient (BNVA) | payer OTHER, SELFPAY | PROVIDERS: PCP Internal Medicine; Visit Provider Surgery Vascular Surgery | DX: I83.12 Varicose veins of left lower extremity with inflammation (principal); Z79.01 Long term (current) use of anticoagulants; Z79.82 Long term (current) use of aspirin; Z98.890 Other specified postprocedural states | CPT/HCPCS: 99212 ==

== ENCOUNTER 2022-01-22 12:53 | Outpatient (REF) | payer OTHER, SELFPAY ==
--- NOTE | ~2022-01-22 | US_ITS ---
EXAMINATION: US VENOUS ULTRASOUND WITH DOPPLER LOWER EXTREMITY, LEFT CLINICAL INFORMATION: Follow-up DVT COMPARISON: Previous exam 01/08/2022 TECHNIQUE: Ultrasound of the deep veins is performed from the hip to the calf with compression sonography and color and pulse Doppler assessment. Spectral analysis with color-flow imaging is performed. FINDINGS: There is thrombus seen in the greater saphenous vein in the upper thigh/saphenofemoral junction extending into the common femoral vein. Size of the thrombus in the common femoral vein appears decreased from 01/08/2022 exam. Thrombus appears attached by a thin stalk and has a floating motion or movement in the left common femoral vein with blood flow and respiratory variation. Thrombus in the left common femoral vein is nonocclusive. The left superficial femoral vein, profunda femoral vein, popliteal vein, and the trifurcation region are patent and show no evidence of deep venous thrombosis. There is no popliteal fossa cyst. US/US venous duplex LE LT IMPRESSION: Persistent thrombus in the left greater saphenous vein/saphenofemoral junction extending into the common femoral vein. The size of thrombus in the common femoral vein is slightly decreased compared to prior exam 01/08/2022. Thrombus in the common femoral vein is nonocclusive, has a thin stalk and demonstrates floating appearance or movement with blood flow and respiration. Findings were communicated to Sherrie in Dr Fang's office by telephone at the completion of the exam by the pathology laboratory technologist on 01/22/2022.
== END 2022-01-22 12:54 | disposition home or self-care (01) ==
LOC: HO.US 12:53
PROVIDERS: Visit Provider Surgery Vascular Surgery
DX: I82.90 Acute embolism and thrombosis of unspecified vein (principal)
CPT/HCPCS: 93971

== ENCOUNTER → 2022-02-01 15:26 | Outpatient (BNVA) | payer OTHER, SELFPAY | PROVIDERS: PCP Internal Medicine; Visit Provider Surgery Vascular Surgery | DX: I83.12 Varicose veins of left lower extremity with inflammation (principal) | CPT/HCPCS: 99212 ==

== ENCOUNTER → 2022-03-08 10:12 | Outpatient (BNVA) | payer OTHER, SELFPAY | PROVIDERS: PCP Internal Medicine; Visit Provider Surgery Vascular Surgery | DX: I83.12 Varicose veins of left lower extremity with inflammation (principal) | CPT/HCPCS: 99212 ==

== ENCOUNTER → 2022-03-16 08:30 | Outpatient (BNVA) | payer OTHER, SELFPAY | PROVIDERS: PCP Internal Medicine; Visit Provider Surgery Vascular Surgery | DX: I83.12 Varicose veins of left lower extremity with inflammation (principal) | CPT/HCPCS: 36475 ==

== ENCOUNTER 2022-03-20 15:33 | Outpatient (REF) | payer OTHER, SELFPAY ==
--- NOTE | ~2022-03-20 | US_ITS ---
EXAMINATION: US VENOUS ULTRASOUND WITH DOPPLER LOWER EXTREMITY, LEFT CLINICAL INFORMATION: Pain. Post RF ablation 03/16/2022 COMPARISON: Previous exams most recent January 2022 TECHNIQUE: Ultrasound of the deep veins is performed from the hip to the calf with compression sonography and color and pulse Doppler assessment. Spectral analysis with color-flow imaging is performed. FINDINGS: There is normal venous compression and respiratory variation and augmented flow. The visualized common femoral vein, superficial femoral vein, profunda femoral vein, popliteal vein, and the trifurcation region shows no evidence of deep venous thrombosis. There is echogenic material in the left greater saphenous vein. This is 2.4 cm from the saphenofemoral junction. The greater saphenous vein appears thrombosed. The lesser saphenous vein appears thrombosed. There is no significant popliteal fossa cyst. US/US venous duplex LE LT IMPRESSION: No DVT demonstrated in the left lower extremity.
== END 2022-03-20 15:34 | disposition home or self-care (01) ==
LOC: HO.US 15:33
PROVIDERS: Visit Provider Surgery Vascular Surgery
DX: M79.605 Pain in left leg (principal)
CPT/HCPCS: 93971

== ENCOUNTER → 2022-03-29 14:47 | Outpatient (BNVA) | payer OTHER, SELFPAY | PROVIDERS: PCP Internal Medicine; Visit Provider Surgery Vascular Surgery | DX: I83.12 Varicose veins of left lower extremity with inflammation (principal); Z98.890 Other specified postprocedural states | CPT/HCPCS: 99212 ==

== ENCOUNTER 2022-05-18 14:47 | Outpatient (REF) | payer OTHER, SELFPAY ==
--- NOTE | ~2022-05-18 | US_ITS ---
EXAMINATION: US VENOUS ULTRASOUND WITH DOPPLER LOWER EXTREMITY, LEFT CLINICAL INFORMATION: Swelling COMPARISON: None TECHNIQUE: Ultrasound of the deep veins is performed from the hip to the calf with compression sonography and color and pulse Doppler assessment. Spectral analysis with color-flow imaging is performed. FINDINGS: There is normal venous compression and respiratory variation and augmented flow. The visualized common femoral vein, superficial femoral vein, profunda femoral vein, popliteal vein, and the trifurcation region shows no evidence of deep venous thrombosis. There is no significant popliteal fossa cyst. Thrombosed superficial varicosities present in the medial calf. If the patient's symptoms persist, followup ultrasound in 5 days 7 days might be of value to exclude proximal propagation from a non-visualized calf vein. US/US venous duplex LE LT IMPRESSION: No DVT demonstrated in the left lower extremity. Thrombosed superficial varicose veins along the medial calf.
== END 2022-05-18 14:48 | disposition home or self-care (01) ==
LOC: HO.US 14:47
PROVIDERS: PCP Internal Medicine; Visit Provider Internal Medicine
DX: R60.0 Localized edema (principal)
CPT/HCPCS: 93971

== ENCOUNTER 2022-06-18 07:53 | Outpatient (REF) | payer OTHER, SELFPAY ==
[2022-06-18 10:47] LABS: MANUAL DIFF FLAG NO
[2022-06-18 10:56] LABS: Basophils Absolute Auto 0.1 X10*3/uL (0.0-0.2); Basophils Percent Auto 0.9 % (0-2); Eosinophils Absolute Auto 0.4 X10*3/uL (0.0-0.4); Eosinophils Percent Auto 5.2 % (0-4); Hematocrit 45.8 % (42.0-52.0); Hemoglobin 15.5 g/dl (14.0-18.0); Imm Gran Abs Auto 0.02 X10*3/uL (0.00-0.03); Imm Gran Pct Auto 0.3 % (0.0-0.4); Lymphocytes Absolute Auto 0.9 X10*3/uL (1.2-4.9); Lymphocytes Percent Auto 14.1 % (20-40); Mean Corpuscular HGB Conc 33.8 g/dl (31.0-36.0); Mean Corpuscular Hemoglobin 31.3 pg (27.0-33.0); Mean Corpuscular Volume 92.5 fL (80.0-98.0); Mean Platelet Volume 13.4 fL (9.4-12.4); Monocytes Absolute Auto 0.6 X10*3/uL (0.1-1.2); Monocytes Percent Auto 9.1 % (2-11); Neutrophils Absolute Auto 4.7 x10*3/uL (2.0-8.3); Neutrophils Percent Auto 70.4 % (45-73); Platelet Count 125 X10*3/uL (160-400); Red Blood Count 4.95 X10*6/uL (4.60-5.80); Red Cell Distribution Width 12.7 % (11.0-16.0); White Blood Count 6.7 X10*3/uL (4.8-10.8)
[2022-06-18 11:33] LABS: Alanine Aminotransferase 25 U/L (0-40); Albumin Level 4.1 g/dL (3.5-5.0); Alkaline Phosphatase 81 U/L (39-117); Anion Gap 12 (12-20); Aspartate Amino Transferase 34 U/L (5-37); Bilirubin Total 0.7 mg/dL (0.0-1.0); Blood Urea Nitrogen 13 mg/dL (9-16); C Reactive Protein < 0.10 mg/dL (< or = 0.50); Calcium 8.7 mg/dL (8.4-10.2); Carbon Dioxide 28 mmol/L (22-29); Chloride 105 mmol/L (96-108); Cholesterol 178 mg/dL; Estimated Glomerular Filt Rate > 60; Glucose Fasting 85 mg/dL (60-99); HDL Cholesterol 54 mg/dL; LDL Cholesterol Calculated 111 mg/dl; Potassium 4.2 mmol/L (3.3-5.1); Prostate Specific Antigen 0.48 ng/mL (<0.05-4.0); Sodium 141 mmol/L (135-145); Total Protein 6.8 g/dL (6.5-8.0); Triglycerides 65 mg/dL; Vitamin D 25-OH Total 48.6 ng/mL (>30)
[2022-06-18 11:39] LABS: Vitamin B12 1247 pg/mL (200-900)
== END 2022-06-18 07:54 | disposition home or self-care (01) ==
LOC: HO.10HDL 07:53
PROVIDERS: Visit Provider Internal Medicine
DX: Z00.00 Encounter for general adult medical examination without abnormal findings (principal); Z12.5 Encounter for screening for malignant neoplasm of prostate; R07.81 Pleurodynia
CPT/HCPCS: 36415; 80053; 80061; 82306; 82607; 84153; 85025; 86140

== ENCOUNTER → 2022-06-26 09:16 | Outpatient (BNVA) | payer OTHER, SELFPAY | PROVIDERS: PCP Internal Medicine; Visit Provider Surgery Vascular Surgery | DX: I83.12 Varicose veins of left lower extremity with inflammation (principal) | CPT/HCPCS: 99212 ==

== ENCOUNTER 2022-07-30 09:31 | Day surgery (SDC) | payer OTHER, SELFPAY ==
[2022-07-25 10:54] VITALS: BMI 23.6
--- NOTE | 2022-07-27 12:09 | P.CONAN_ITS ---
Documented by User: Prema Dow NP 07/27/22 12:11 HPI - Anesthesia Eval Consult details Narrative: 57yo M for Left Micro Phlebectomy Hx DVT/PE, no current anticoag PMFSH Active Problems Active Problems: All Active Problems (Updated 07/25/22 @ 10:50 by Janice Stover RN) Blood clot in vein (Acute) Pulmonary embolism (Acute) Varicose veins of left lower extremity with inflammation (Acute) Past Medical History Medical History (Updated 07/25/22 @ 10:50 by Janice Stover RN) DVT (deep venous thrombosis) Hx of varicose veins of lower extremity Pulmonary embolism Vitiligo Family History Family History Father Poor circulation Mother Cyst COPD (chronic obstructive pulmonary disease) Acid reflux disease Sister Cyst Brother Bone cancer Paternal Aunt Lupus Surgical History Surgical History (Updated 07/25/22 @ 10:50 by Janice Stover RN) Hx of nasal polypectomy Hx of varicose vein ligation and stripping Social History Social History Household Members: Family Household Members Other:: mother Housing: House Are you a primary resident care assistant to a significant other at home: No Do you presently have visiting nurse or other home services: No Alcohol intake: current Alcohol intake frequency: does not drink Patient Tobacco Use Status: Never used Tobacco Use of substances other than those prescribed or required for medical reasons: No Have you been hit, kicked, punched, or otherwise hurt by someone within the past year? If so, by whom?: No Are you DNR?: No Advance Directives: No Advance Directives Information Provided: Yes (brochure mailed) Advance Directives on File: No Recently lost weight without trying: No Eating poorly because of decreased appetite: No Nutrition Risks: No Nutritional Risk Poor oral hygiene: No service: No Current occupational status: employed Meds Allergies Allergy/AdvReac Type Severity Reaction Status Date / Time prednisone Allergy Intermediate Gastrointestinal Verified 07/25/22 10:53 Upset warfarin [From COUMADIN] Allergy Intermediate dizziness,GI Verified 07/25/22 10:53 upset amoxicillin AdvReac Intermediate Diarrhea Verified 07/25/22 10:44 Home Medications Medication Instructions Recorded Confirmed Last Taken Type calcium phosphate,dibasic 77 400 tab PO DAILY 11/21/20 07/25/22 Unknown History mg-vitamin D3 400 unit tablet multivitamin 1 tab PO DAILY 06/26/21 07/25/22 Unknown History Compression socks, small 01/18/22 Unknown History Exam Exam Date and Time: July 27, 2022 1209 Height,Weight and Vital Signs: Height 5 ft 11 in Weight 76.657 kg Pertinent Lab Results Pertinent Lab Results: Laboratory Tests 06/18/22 06/18/22 08:00 08:00 WBC 6.7 Hgb 15.5 Hct 45.8 Plt Count 125 L Sodium 141 Potassium 4.2 Chloride 105 Carbon Dioxide 28 BUN 13 Creatinine 0.85 Narrative Narrative: EKG 2021 Vent. Rate : 083 BPM ? ? Atrial Rate : 083 BPM ?? P-R Int : 168 ms? QRS Dur : 086 ms ? ? QT Int : 368 ms ? ? ? P-R-T Axes : 078 022 069 degrees ?? QTc Int : 432 ms ? Normal sinus rhythm Right atrial enlargement Borderline ECG When compared with ECG of 12-NOV-2020 12:05, No significant change was found Assessment and Plan Assessment Anesthesia Assessment: Chart Reviewed Documented by User: Harish Victor MD 07/30/22 10:48 [facility] Past Medical History Medical History (Updated 07/25/22 @ 10:50 by Janice Stover RN) DVT (deep venous thrombosis) Hx of varicose veins of lower extremity Pulmonary embolism Vitiligo Family History Family History Father Poor circulation Mother Cyst COPD (chronic obstructive pulmonary disease) Acid reflux disease Sister Cyst Brother Bone cancer Paternal Aunt Lupus Family history of problems with anesthesia: No Surgical History Surgical History (Updated 07/25/22 @ 10:50 by Janice Stover RN) Hx of nasal polypectomy Hx of varicose vein ligation and stripping History of Problems with Anesthesia: No Social History Social History Household Members: Family Household Members Other:: mother Housing: House Are you a primary resident care assistant to a significant other at home: No Do you presently have visiting nurse or other home services: No Alcohol intake: current Alcohol intake frequency: does not drink Patient Tobacco Use Status: Never used Tobacco Use of substances other than those prescribed or required for medical reasons: No Have you been hit, kicked, punched, or otherwise hurt by someone within the past year? If so, by whom?: No Are you DNR?: No Advance Directives: No Advance Directives Information Provided: Yes (brochure mailed) Advance Directives on File: No Recently lost weight without trying: No Eating poorly because of decreased appetite: No Nutrition Risks: No Nutritional Risk Poor oral hygiene: No service: No Current occupational status: employed Meds Allergies Allergy/AdvReac Type Severity Reaction Status Date / Time prednisone Allergy Intermediate Gastrointestinal Verified 07/25/22 10:53 Upset warfarin [From COUMADIN] Allergy Intermediate dizziness,GI Verified 07/25/22 10:53 upset amoxicillin AdvReac Intermediate Diarrhea Verified 07/25/22 10:44 Home Medications Medication Instructions Recorded Confirmed Last Taken Type calcium phosphate,dibasic 77 400 tab PO DAILY 11/21/20 07/25/22 Unknown History mg-vitamin D3 400 unit tablet multivitamin 1 tab PO DAILY 06/26/21 07/25/22 Unknown History Compression socks, small 01/18/22 Unknown History Exam Airway Mallampati Class: II TM Dist: >3cm Neck ROM: Full Loose/Missing/Broken Teeth: No Heart: [id number] Lungs: cta b/l Assessment and Plan Assessment Anesthesia Assessment: Anesthesia Plan Discussed Final Anesthetic Review Family History of Problems with Anesthesia: No History of Problems with Anesthesia: No NPO: Yes ASA Class: III Final Preanesthetic Review: No Changes in Pt Med Stat, Meds/Allgs Chart Reviewed, Consent Obtained/Reviewed and Anes Risks/Benef Reviewed Patient Risk: Intermediate Procedure Risk: Intermediate Assessment/Block/Sedation in SS: Assess/Block/Sedation-SS Anesthetic Plan Anesthetic Plan: MAC: and Agree w/ Assess. and Plan Disposition: Standard PACU
[2022-07-30] VITALS (11 sets, daily range): BP systolic 144–163; BP diastolic 74–96; PULSE 82–100; RESP 17–18; TEMP 36.3–37; O2SAT 95–99; BMI 22.8
[2022-07-30] MEDS: Lactated Ringers 1,000 ML 100 ML IVCONT (09:51)
[2022-07-30] MEDS: vancomycin HCL 1,000 MG in 0.9 % Sodium Chloride 250 ML 270 MG IV (10:12)
[2022-07-30] MEDS: fentaNYL citrate/PF 100 MCG/2 ML VIAL 50 MCG IVPUSH (13:20)
[2022-07-30] MEDS: Acetaminophen 325 MG TABLET 650 MG PO (13:21)
[2022-07-30] MEDS: oxyCODONE HCl Immed Release 5 MG TABLET PO (13:21)
--- NOTE | 2022-07-30 13:23 | P.OP_ITS ---
Operative Note Operative Note Date of Service: 07/30/22 Narrative: Operative note by [facility] Preoperative diagnosis: Left leg varicose veins with inflammation Postoperative diagnosis: Left leg varicose veins with inflammation Procedure:1 left leg microphlebectomy (25) 2. Ligation of left leg venous cluster Surgeon:Naresh Fang M.D. Production Line Welder: None Anesthesia: General by Anesthesia Specimens: 1 Drains: None Estimated blood loss: 100 mL Indications: 57-year-old gentleman with significant history of venous disease presents for microphlebectomy. He has had prior venous ablation is in the office. Risks benefits complications were discussed in detail with the patient. He understood and consented. The patient has signed the informed consent after reviewing risks, complications, benefits, and alternatives previously discussed with the patient. The patient was given the opportunity to ask any additional questions or voice any concerns. All questions were answered to the patient's satisfaction. Procedure in detail: Varicose veins were marked in the standing position on the left leg and the patient was then placed in the supine position. The left lower extremity was prepared and draped to allow knee flexion in the sterile field. The patient had large superficial varicose veins with significant symptoms of pain. It was therefore determined to perform microphlebectomies of the clusters of varicose veins. The patient had bulging varicose veins which were previously marked in the standing position. A small stab incision was made longitudinally directly overlying the varicose vein in the calf and the varicose vein was grasped with a hemostat aided by a vein hook. It was then dissected as far proximally and distally as possible and avulsed. A total of 25 stab incisions were made and the procedure of stab phlebectomies was repeated 25 times. There was a large cluster in the left medial thigh. This was identified at the base and ligated with a 3-0 poly Sorb suture. Residual varicosities were removed. Cluster was evacuated. Hemostasis was checked and stab incision sites were closed with steri-strips and sterile dressing was given with gauze and krilex wrap followed by an marcelo bandage. There were no complications and blood loss was minimal. Post-Op instructions were given and a follow-up appointment was recommended. This note is constructed using voice recognition software. While every effort has been made to ensure accuracy, channel marketing specialist errors may have been included. Thank you for allowing me to participate in the care of your patient. Yours sincerely, Naresh Fang MD, FACS, R.P.V.I.
[2022-07-30] MEDS: ondansetron HCL 4 MG/2 ML VIAL IVPUSH (13:46)
--- NOTE | 2022-07-30 15:57 | PC.NURSE ---
PATIENT EXTREMELY ANXIOUS IN DC AREA. THIS RN SPOKE WITH DR. REYES AND ANNA BANDAGE REINFORCED. APPROX ORRANGE SIZE BLOOD STAIN ON GAUZE COMING FROM PACU AREA (a clean gauze was placed on top of it). NO FURTHER BLEEDING. PATIENT WAS PALE. VITAL SIGNS TAKEN. 108/51, 56 AND THEN DOWN TO 46, 97% RA. PATIENT GIVEN COOL CLOTH. AFTER APPROX 5 MIN. PATIENT'S COLORING BACK. PULSE BACK TO 70. PATIENT STATES FEELING BETTER. DR. JI SPOKE WITH PATIENT. PT DISCHARGED HOME.
== END 2022-07-30 16:01 | disposition home or self-care (01) ==
PROVIDERS: PCP Internal Medicine; Visit Provider Surgery Vascular Surgery
PROC: (CPT 37766; principal; 2022-07-30 11:20)
DX: I83.12 Varicose veins of left lower extremity with inflammation (principal)
CPT/HCPCS: 37766; 37785; 88304; J2250; J2405; J2795; J3010; J3370

== ENCOUNTER → 2022-08-14 10:16 | Outpatient (BNVA) | payer OTHER, SELFPAY | PROVIDERS: PCP Internal Medicine; Visit Provider Surgery Vascular Surgery | DX: I83.12 Varicose veins of left lower extremity with inflammation (principal); I83.11 Varicose veins of right lower extremity with inflammation | CPT/HCPCS: 99212 ==

== ENCOUNTER 2022-08-21 08:25 | Outpatient (REF) | payer OTHER, SELFPAY ==
[2022-08-21 09:46] LABS: Appearance Urine Clear; Color Urine Yellow; Glucose Urine UA Negative (Negative); Leukocyte Esterase Urine Negative (Negative); Nitrite Urine Negative (Negative); PH 7.5 (5.0-9.0); Specific Gravity - Urine <= 1.005 (1.005-1.025); Urine Blood Negative (Negative); Urine Ketones Negative (Negative); Urine Protein Negative (Neg-Trace)
== END 2022-08-21 08:26 | disposition home or self-care (01) ==
LOC: HO.LAB 08:25
PROVIDERS: PCP Internal Medicine; Visit Provider Internal Medicine
DX: R30.0 Dysuria (principal)
CPT/HCPCS: 81003; 87086

== ENCOUNTER 2022-08-26 13:52 | Emergency (ER) | payer OTHER, SELFPAY ==
--- NOTE | ~2022-08-26 | US_ITS ---
EXAMINATION: US ABDOMEN COMPLETE CLINICAL INFORMATION: Upper abdominal pain. COMPARISON: CT abdomen pelvis 11/12/2020, complete abdominal ultrasound 10/02/2013 TECHNIQUE: Real-time imaging of the abdominal viscera. FINDINGS: PANCREAS: Visualized portion of pancreas grossly unremarkable. Large portion of pancreas obscured by bowel gas precluding reliable assessment. ABDOMINAL AORTA: The proximal segment is normal in caliber. Mid and distal segments are partially obscured by bowel gas. INFERIOR VENA CAVA: Visualized portions are normal. LIVER: Normal homogeneous echogenicity. 1.3 cm uniformly hyperechoic slightly lobulated lesion in the right liver lobe without appreciable increase internal vascularity, likely to represent a small hemangioma. This corresponds to a small hypodense lesion of similar size on CT of 11/12/2020. No other liver lesion. No intrahepatic biliary ductal dilation. GALLBLADDER: Normal. The gallbladder is physiologically distended without evidence of stones, sludge, polyps, wall thickening or pericholecystic fluid. COMMON BILE DUCT: Normal in caliber measuring 0.6 cm in diameter. RIGHT KIDNEY: Normal. No hydronephrosis. No renal calculi or focal parenchymal lesions. The kidney measures 9.7 cm in maximum dimension. LEFT KIDNEY: Normal. No hydronephrosis. No renal calculi or focal parenchymal lesions. The kidney measures 10.2 cm in maximum dimension. SPLEEN: Limited visualization partially obscured by bowel gas. The spleen measures 8.8 cm in maximum dimension. FREE FLUID: None. US/US abdomen complete IMPRESSION: 1. Normal sonographic appearance of the gallbladder. No evidence of cholelithiasis or acute cholecystitis. 2. No biliary ductal dilation. 3. No hydronephrosis or nephrolithiasis. 4. Small 1.3 cm probable hemangioma in the right liver lobe, unchanged in size since prior CT.
[2022-08-26 14:16] VITALS: BP 148/87; PULSE 75; RESP 16; TEMP 36.6; O2SAT 98; BMI 23.7
--- NOTE | 2022-08-26 14:20 | ED_ITS ---
HPI - Abdominal Pain General Chief Complaint: General Medical <ALBERTINA Bacon - Last Filed: 08/26/22 14:28> Stated Complaint: Dental pain/Abd pain/Multiple complaints <ALBERTINA Bacon - Last Filed: 08/26/22 14:28> Time Seen by Provider: 08/26/22 16:21 <ALBERTINA Bacon - Last Filed: 08/26/22 14:28> Source: patient <ALBERTINA Samuel Last Filed: 08/27/22 02:28> Mode of arrival: ambulatory <ALBERTINA Samuel - Last Filed: 08/27/22 02:28> Limitations: no limitations <ALBERTINA Samuel Last Filed: 08/27/22 02:28> History of Present Illness HPI narrative: 57-year-old male with vitiligo presents to the ED for abdominal pain epigastric since last night after stating he took nystatin ( for thrush). Patient states epigastric pain since last night. Patient denies any shortness of breath, nausea, vomiting, fever, or chills. Also patient has small area of redness on left leg on 1 of incisions where he had micro embolectomy for varicose vein. Patient denies leg swelling, calf pain, fever, or chills. <ALBERTINA Samuel Last Filed: 08/27/22 02:28> Related Data Home Medications: Home Medications Medication Instructions Recorded Confirmed calcium phosphate,dibasic 77 400 tab PO DAILY 11/21/20 07/25/22 mg-vitamin D3 400 unit tablet multivitamin 1 tab PO DAILY 06/26/21 07/25/22 Compression socks, small 01/18/22 Previous Rx's Medication Instructions Recorded cephalexin 500 mg capsule 500 mg PO QID 7 days #28 caps 08/26/22 clotrimazole 10 mg sangeeta 10 mg mucous membrane 5XD 7 days 08/26/22 #35 tabs <ALBERTINA Bacon Last Filed: 08/26/22 14:28> Allergies/Adverse Reactions: Allergies Allergy/AdvReac Type Severity Reaction Status Date / Time prednisone Allergy Intermediate Gastrointestinal Verified 08/14/22 10:18 Upset warfarin [From COUMADIN] Allergy Intermediate dizziness,GI Verified 08/14/22 10:18 upset amoxicillin AdvReac Intermediate Diarrhea Verified 08/14/22 10:18 <ALBERTINA Bacon - Last Filed: 08/26/22 14:28> Review of Systems Review of Systems left leg redness. epigastirc pain after taking nystatin <ALBERTINA Samuel - Last Filed: 08/27/22 02:28> Yes all other systems are reviewed and are negative <ALBERTINA Samuel - Last Filed: 08/27/22 02:28> [facility] Past Medical History Medical History: Medical History DVT (deep venous thrombosis) Hx of varicose veins of lower extremity Pulmonary embolism Vitiligo <ALBERTINA Bacon - Last Filed: 08/26/22 14:28> Surgical History: Surgical History Hx of nasal polypectomy Hx of varicose vein ligation and stripping <ALBERTINA Bacon - Last Filed: 08/26/22 14:28> Family History Family History: Family History Father Poor circulation Mother Cyst COPD (chronic obstructive pulmonary disease) Acid reflux disease Sister Cyst Brother Bone cancer Paternal Aunt Lupus <ALBERTINA Bacon - Last Filed: 08/26/22 14:28> Social History Social History: Social History Household Members: Family Household Members Other:: mother Housing: House Are you a primary pharmacy customer care specialist to a significant other at home: No Do you presently have visiting nurse or other home services: No Alcohol intake: current Alcohol intake frequency: holidays/special occasions only Patient Tobacco Use Status: Never used Tobacco Smoked in Last 30 Days: No Use of substances other than those prescribed or required for medical reasons: No Advance Directives: No Advance Directives Information Provided: No service: No Current occupational status: employed <ALBERTINA Bacon - Last Filed: 08/26/22 14:28> Physical Exam ED Vital Signs: Vital Signs - 24 hr 08/26/22 14:16 08/26/22 15:19 08/26/22 15:24 Temperature 97.9 F 98.1 F 98.1 F Pulse Rate 75 78 78 Respiratory Rate 16 16 16 Blood Pressure 148/87 H 156/81 H 156/81 H Pulse Oximetry 98 98 97 Oxygen Delivery Method Room Air Room Air Room Air 08/26/22 15:52 08/26/22 17:13 Temperature 98.5 F 98.4 F Pulse Rate 72 72 Respiratory Rate 15 16 Blood Pressure 130/84 136/79 Pulse Oximetry 99 99 Oxygen Delivery Method Room Air Room Air BMI result Body Mass Index 23.7 <ALBERTINA Bacon - Last Filed: 08/26/22 14:28> Vital Signs - 24 hr 08/26/22 14:16 08/26/22 15:19 08/26/22 15:24 Temperature 97.9 F 98.1 F 98.1 F Pulse Rate 75 78 78 Respiratory Rate 16 16 16 Blood Pressure 148/87 H 156/81 H 156/81 H Pulse Oximetry 98 98 97 Oxygen Delivery Method Room Air Room Air Room Air 08/26/22 15:52 08/26/22 17:13 Temperature 98.5 F 98.4 F Pulse Rate 72 72 Respiratory Rate 15 16 Blood Pressure 130/84 136/79 Pulse Oximetry 99 99 Oxygen Delivery Method Room Air Room Air BMI result Body Mass Index 23.7 <ALBERTINA Samuel Last Filed: 08/27/22 02:28> Const General: cooperative, healthy appearing, comfortable, no acute distress, well developed, alert, awake and Physically active <ALBERTINA Samuel Last Filed: 08/27/22 02:28> Orientation/consciousness: oriented to person, oriented to place, oriented to time and patient oriented x3 <ALBERTINA Samuel Last Filed: 08/27/22 02:28> HENMT Other: mild Oral cavity positive for thrush, looks like it was improving. Neg ative for large amount of thrush to be concerned for esopageal constriction due to esophageal callie. patient states he is eating weel <ALBERTINA Samuel Last Filed: 08/27/22 02:28> Head: Yes normal to inspection, Yes No palpable skull fracture present, Yes normocephalic and Yes atraumatic <ALBERTINA Samuel Last Filed: 08/27/22 02:28> Eyes General: appearance normal, both eyes and all related structures <Dustin Nathanael, PA Martha Last Filed: 08/27/22 02:28> Neck Neck: Yes normal visual inspection, Yes full ROM, Yes no lymphadenopathy, Yes no meningeal signs, Yes trachea midline, Yes supple, No anterior neck swelling and No tender <ALBERTINA Samuel Martha Last Filed: 08/27/22 02:28> Chest Chest palpation & inspection: normal inspection of the chest and normal palpation of entire chest wall <ALBERTINA Samuel Martha Last Filed: 08/27/22 02:28> Resp Effort & Inspection: normal respiratory effort and able to speak in complete sentences <ALBERTINA Samuel Martha Last Filed: 08/27/22 02:28> Auscultation: clear to auscultation bilaterally <ALBERTINA Samuel Martha Last Filed: 08/27/22 02:28> Cardio Jugular venous distension: no JVD <ALBERTINA Samuel Martha Last Filed: 08/27/22 02:28> Heart sounds: S1 normal heart sound present and S2 normal heart sound present <ALBERTINA Samuel Martha Last Filed: 08/27/22 02:28> GI Inspection: Yes normal to inspection and No abdominal wall ecchymosis <ALBERTINA Samuel Martha Last Filed: 08/27/22 02:28> Palpation (GI): Soft to palpation, not firm, nontender, no guarding and not rigid <ALBERTINA Samuel Martha Last Filed: 08/27/22 02:28> General: No CVA tenderness and Yes no CVA tenderness <ALBERTINA Samuel Martha Last Filed: 08/27/22 02:28> Back/Spine/Pelvis Back: no CVA tenderness, No CVA tenderness and No back tenderness <ALBERTINA Samuel Martha Last Filed: 08/27/22 02:28> Skin General skin exam: no rashes or lesions noted and elasticity normal <ALBERTINA Samuel Martha Last Filed: 08/27/22 02:28> Neuro General: oriented to person, oriented to place, oriented to time, patient oriented x3, gait normal, tone normal, moves all extremities, Normal light touch and pain sensation, no meningeal signs, no focal motor deficits, CN's II-XI intact bilaterally and normal sensation to monofilament <ALBERTINA Samuel Last Filed: 08/27/22 02:28> Extrem General: Yes normal to inspection and Yes full ROM <ALBERTINA Samuel Last Filed: 08/27/22 02:28> Upper/lower leg/hip images: 1. Very small area of erythema around incision. Negative for tenderness pus discharge or foul odor. Leg is not swollen. Whole leg is not red. Negative for calf tenderness. Motor/ neuro/vascular exam intact <ALBERTINA Bacon Last Filed: 08/26/22 14:28> 1. Very small area of erythema around incision. Negative for tenderness pus discharge or foul odor. Leg is not swollen. Whole leg is not red. Negative for calf tenderness. Motor/ neuro/vascular exam intact <ALBERTINA Samuel Last Filed: 08/27/22 02:28> Psych Appearance: grossly normal, well kempt and not disheveled <ALBERTINA Samuel Last Filed: 08/27/22 02:28> Course Course Course Narrative: RME-14:20PM - 57yoM with a PMHx of thrush, PE, DVT, varicose veins of lower extremity status post left leg microphlebectomy by Dr. Fang on 08/14/22 who is presenting to the ED with multiple complaints which include upper abdominal decreased appetite and decreased appetite since yesterday after starting oral rinse and spit nystatin for thrush to his mouth and other medications given to him by Dr. Valdez. Took at least 16 doses of nystatin since Saturday night. No improvement in his thrush. He is concerned about this abdominal pain. Reports associated nausea and itchiness. Also concern the site of his incision from his left leg microphlebectomy. Denies being on any blood thinners. On exam his thrush appears to be improving. No trismus/drooling/stridor. Reports he does not feel like he can continue taking the nystatin. Plan: Will obtain labs, abdominal ultrasound. Patient will be sent back to [place] to be evaluated in the ED. <ALBERTINA Bacon Last Filed: 08/26/22 14:28> Reevaluation(s) Reevaluation #1: ultrasound and so COVID swab negative. Labs normal. Troponin and EKG were ordered due to age of 49 with epigastric pain although negative for any tenderness came back negative. Patient to be treated with antibiotics from a cellulitis. Nystatin has been shown to cause abdominal pain as per uptdoate. patient denies every having chest pain or shortness of breath. patient will be discharged with cephalexin for mild leg cellulits. Patient informed to stop taking nystatin and will be described clotrimaole trouche <ALBERTINA Samuel - Last Filed: 08/27/22 02:28> Time: 19:25 <ALBERTINA Samuel - Last Filed: 08/27/22 02:28> Medical Decision Making Medical Decision Making MDM Narrative: patient states having abdominal pain after taking nystatin. Patient denies any chest pain, shortness of breath, diarrhea. Patient denies any dysuria hematuria. Patient secondary complaint is small area of redness on left leg incision. workup is normal. EKG negative STEMI <ALBERTINA Samuel Last Filed: 08/27/22 02:28> Differential Diagnosis Differential Diagnoses: The differential diagnosis associated with the presentation includes ( adverse reaction of nystatin, myocardial infarction, pancreatitis, cholecystitis) <ALBERTINA Samuel Last Filed: 08/27/22 02:28> Admission/Observation Consideration of admission/observation: Escalation of care including admission/observation considered <ALBERTINA Samuel Last Filed: 08/27/22 02:28> considered <ALBERTINA Samuel Last Filed: 08/27/22 02:28> Lab Data [facility] Lab Attestation statement: I reviewed the patient's lab results. <ALBERTINA Samuel Last Filed: 08/27/22 02:28> Result Diagrams: 08/26/22 14:35 08/26/22 14:35 <ALBERTINA Bacon - Last Filed: 08/26/22 14:28> Labs: Lab Results 08/26/22 08/26/22 08/26/22 Range/Units 14:35 14:35 14:35 WBC 7.4 (4.8-10.8) X10*3/uL RBC 4.94 (4.60-5.80) X10*6/uL Hgb 15.2 (14.0-18.0) g/dl Hct 44.6 (42.0-52.0) % MCV 90.3 (80.0-98.0) fL MCH 30.8 (27.0-33.0) pg MCHC 34.1 (31.0-36.0) g/dl RDW 11.9 (11.0-16.0) % Plt Count 142 L (160-400) X10*3/uL MPV 12.9 H (9.4-12.4) fL Immature Gran % (Auto) 0.5 H (0.0-0.4) % Neut % (Auto) 76.9 H (45-73) % Lymph % (Auto) 12.2 L (20-40) % [place] % (Auto) 7.7 (2-11) % Eos % (Auto) 1.9 (0-4) % Baso % (Auto) 0.8 (0-2) % Lymph # (Auto) 0.9 L (1.2-4.9) X10*3/uL [place] # (Auto) 0.6 (0.1-1.2) X10*3/uL Eos # (Auto) 0.1 (0.0-0.4) X10*3/uL Baso # (Auto) 0.1 (0.0-0.2) X10*3/uL Abs Immat Gran (auto) 0.04 H (0.00-0.03) X10*3/uL Absolute Neuts (auto) 5.7 (2.0-8.3) x10*3/uL Absolute Nucleated RBC 0.000 (0.0-0.012) X10*3/uL Nucleated RBC % (auto) 0.0 (0.0-0.2) /100WBC PT 12.4 (10.0-13.1) SEC INR 1.1 (0.9-1.1) Sodium 139 (135-145) mmol/L Potassium 4.1 (3.3-5.1) mmol/L Chloride 103 (96-108) mmol/L Carbon Dioxide 25 (22-29) mmol/L Anion Gap 15 (12-20) BUN 17 H (9-16) mg/dL Creatinine 0.93 (0.5-1.4) mg/dL Estim Creat Clear Calc 92.2 Estimated GFR > 60 Random Glucose 112 (60-115) mg/dL Calcium 9.3 D (8.4-10.2) mg/dL Magnesium 2.2 (1.6-2.6) mg/dL Total Bilirubin 0.6 (0.0-1.0) mg/dL AST 30 (5-37) U/L ALT 25 (0-40) U/L Alkaline Phosphatase 97 (39-117) U/L Troponin I High Sens (<3.5-35.0) ng/L B-Natriuretic Peptide (<100) pg/mL Total Protein 6.8 (6.5-8.0) g/dL Albumin 4.3 (3.5-5.0) g/dL Lipase 27 (8-78) U/L Ethyl Alcohol mg/dL Influenza Type A (PCR) (Negative) Influenza Type B (PCR) (Negative) RSV RNA Qual (PCR) (Negative) SARS-CoV-2 RNA (RT-PCR) (Negative) 08/26/22 08/26/22 08/26/22 Range/Units 14:35 14:35 17:19 WBC (4.8-10.8) X10*3/uL RBC (4.60-5.80) X10*6/uL Hgb (14.0-18.0) g/dl Hct (42.0-52.0) % MCV (80.0-98.0) fL MCH (27.0-33.0) pg MCHC (31.0-36.0) g/dl RDW (11.0-16.0) % Plt Count (160-400) X10*3/uL MPV (9.4-12.4) fL Immature Gran % (Auto) (0.0-0.4) % Neut % (Auto) (45-73) % Lymph % (Auto) (20-40) % [place] % (Auto) (2-11) % Eos % (Auto) (0-4) % Baso % (Auto) (0-2) % Lymph # (Auto) (1.2-4.9) X10*3/uL [place] # (Auto) (0.1-1.2) X10*3/uL Eos # (Auto) (0.0-0.4) X10*3/uL Baso # (Auto) (0.0-0.2) X10*3/uL Abs Immat Gran (auto) (0.00-0.03) X10*3/uL Absolute Neuts (auto) (2.0-8.3) x10*3/uL Absolute Nucleated RBC (0.0-0.012) X10*3/uL Nucleated RBC % (auto) (0.0-0.2) /100WBC PT (10.0-13.1) SEC INR (0.9-1.1) Sodium (135-145) mmol/L Potassium (3.3-5.1) mmol/L Chloride (96-108) mmol/L Carbon Dioxide (22-29) mmol/L Anion Gap (12-20) BUN (9-16) mg/dL Creatinine (0.5-1.4) mg/dL Estim Creat Clear Calc Estimated GFR Random Glucose (60-115) mg/dL Calcium (8.4-10.2) mg/dL Magnesium (1.6-2.6) mg/dL Total Bilirubin (0.0-1.0) mg/dL AST (5-37) U/L ALT (0-40) U/L Alkaline Phosphatase (39-117) U/L Troponin I High Sens (<3.5-35.0) ng/L B-Natriuretic Peptide 20 (<100) pg/mL Total Protein (6.5-8.0) g/dL Albumin (3.5-5.0) g/dL Lipase (8-78) U/L Ethyl Alcohol < 10 mg/dL Influenza Type A (PCR) NEGATIVE (Negative) Influenza Type B (PCR) NEGATIVE (Negative) RSV RNA Qual (PCR) NEGATIVE (Negative) SARS-CoV-2 RNA (RT-PCR) NEGATIVE (Negative) 08/26/22 Range/Units 17:32 WBC (4.8-10.8) X10*3/uL RBC (4.60-5.80) X10*6/uL Hgb (14.0-18.0) g/dl Hct (42.0-52.0) % MCV (80.0-98.0) fL MCH (27.0-33.0) pg MCHC (31.0-36.0) g/dl RDW (11.0-16.0) % Plt Count (160-400) X10*3/uL MPV (9.4-12.4) fL Immature Gran % (Auto) (0.0-0.4) % Neut % (Auto) (45-73) % Lymph % (Auto) (20-40) % [place] % (Auto) (2-11) % Eos % (Auto) (0-4) % Baso % (Auto) (0-2) % Lymph # (Auto) (1.2-4.9) X10*3/uL [place] # (Auto) (0.1-1.2) X10*3/uL Eos # (Auto) (0.0-0.4) X10*3/uL Baso # (Auto) (0.0-0.2) X10*3/uL Abs Immat Gran (auto) (0.00-0.03) X10*3/uL Absolute Neuts (auto) (2.0-8.3) x10*3/uL Absolute Nucleated RBC (0.0-0.012) X10*3/uL Nucleated RBC % (auto) (0.0-0.2) /100WBC PT (10.0-13.1) SEC INR (0.9-1.1) Sodium (135-145) mmol/L Potassium (3.3-5.1) mmol/L Chloride (96-108) mmol/L Carbon Dioxide (22-29) mmol/L Anion Gap (12-20) BUN (9-16) mg/dL Creatinine (0.5-1.4) mg/dL Estim Creat Clear Calc Estimated GFR Random Glucose (60-115) mg/dL Calcium (8.4-10.2) mg/dL Magnesium (1.6-2.6) mg/dL Total Bilirubin (0.0-1.0) mg/dL AST (5-37) U/L ALT (0-40) U/L Alkaline Phosphatase (39-117) U/L Troponin I High Sens < 3.5 (<3.5-35.0) ng/L B-Natriuretic Peptide (<100) pg/mL Total Protein (6.5-8.0) g/dL Albumin (3.5-5.0) g/dL Lipase (8-78) U/L Ethyl Alcohol mg/dL Influenza Type A (PCR) (Negative) Influenza Type B (PCR) (Negative) RSV RNA Qual (PCR) (Negative) SARS-CoV-2 RNA (RT-PCR) (Negative) <ALBERTINA Bacon - Last Filed: 08/26/22 14:28> Lab Results 08/26/22 08/26/22 08/26/22 Range/Units 14:35 14:35 14:35 WBC 7.4 (4.8-10.8) X10*3/uL RBC 4.94 (4.60-5.80) X10*6/uL Hgb 15.2 (14.0-18.0) g/dl Hct 44.6 (42.0-52.0) % MCV 90.3 (80.0-98.0) fL MCH 30.8 (27.0-33.0) pg MCHC 34.1 (31.0-36.0) g/dl RDW 11.9 (11.0-16.0) % Plt Count 142 L (160-400) X10*3/uL MPV 12.9 H (9.4-12.4) fL Immature Gran % (Auto) 0.5 H (0.0-0.4) % Neut % (Auto) 76.9 H (45-73) % Lymph % (Auto) 12.2 L (20-40) % [place] % (Auto) 7.7 (2-11) % Eos % (Auto) 1.9 (0-4) % Baso % (Auto) 0.8 (0-2) % Lymph # (Auto) 0.9 L (1.2-4.9) X10*3/uL [place] # (Auto) 0.6 (0.1-1.2) X10*3/uL Eos # (Auto) 0.1 (0.0-0.4) X10*3/uL Baso # (Auto) 0.1 (0.0-0.2) X10*3/uL Abs Immat Gran (auto) 0.04 H (0.00-0.03) X10*3/uL Absolute Neuts (auto) 5.7 (2.0-8.3) x10*3/uL Absolute Nucleated RBC 0.000 (0.0-0.012) X10*3/uL Nucleated RBC % (auto) 0.0 (0.0-0.2) /100WBC PT 12.4 (10.0-13.1) SEC INR 1.1 (0.9-1.1) Sodium 139 (135-145) mmol/L Potassium 4.1 (3.3-5.1) mmol/L Chloride 103 (96-108) mmol/L Carbon Dioxide 25 (22-29) mmol/L Anion Gap 15 (12-20) BUN 17 H (9-16) mg/dL Creatinine 0.93 (0.5-1.4) mg/dL Estim Creat Clear Calc 92.2 Estimated GFR > 60 Random Glucose 112 (60-115) mg/dL Calcium 9.3 D (8.4-10.2) mg/dL Magnesium 2.2 (1.6-2.6) mg/dL Total Bilirubin 0.6 (0.0-1.0) mg/dL AST 30 (5-37) U/L ALT 25 (0-40) U/L Alkaline Phosphatase 97 (39-117) U/L Troponin I High Sens (<3.5-35.0) ng/L B-Natriuretic Peptide (<100) pg/mL Total Protein 6.8 (6.5-8.0) g/dL Albumin 4.3 (3.5-5.0) g/dL Lipase 27 (8-78) U/L Ethyl Alcohol mg/dL Influenza Type A (PCR) (Negative) Influenza Type B (PCR) (Negative) RSV RNA Qual (PCR) (Negative) SARS-CoV-2 RNA (RT-PCR) (Negative) 08/26/22 08/26/22 08/26/22 Range/Units 14:35 14:35 17:19 WBC (4.8-10.8) X10*3/uL RBC (4.60-5.80) X10*6/uL Hgb (14.0-18.0) g/dl Hct (42.0-52.0) % MCV (80.0-98.0) fL MCH (27.0-33.0) pg MCHC (31.0-36.0) g/dl RDW (11.0-16.0) % Plt Count (160-400) X10*3/uL MPV (9.4-12.4) fL Immature Gran % (Auto) (0.0-0.4) % Neut % (Auto) (45-73) % Lymph % (Auto) (20-40) % [place] % (Auto) (2-11) % Eos % (Auto) (0-4) % Baso % (Auto) (0-2) % Lymph # (Auto) (1.2-4.9) X10*3/uL [place] # (Auto) (0.1-1.2) X10*3/uL Eos # (Auto) (0.0-0.4) X10*3/uL Baso # (Auto) (0.0-0.2) X10*3/uL Abs Immat Gran (auto) (0.00-0.03) X10*3/uL Absolute Neuts (auto) (2.0-8.3) x10*3/uL Absolute Nucleated RBC (0.0-0.012) X10*3/uL Nucleated RBC % (auto) (0.0-0.2) /100WBC PT (10.0-13.1) SEC INR (0.9-1.1) Sodium (135-145) mmol/L Potassium (3.3-5.1) mmol/L Chloride (96-108) mmol/L Carbon Dioxide (22-29) mmol/L Anion Gap (12-20) BUN (9-16) mg/dL Creatinine (0.5-1.4) mg/dL Estim Creat Clear Calc Estimated GFR Random Glucose (60-115) mg/dL Calcium (8.4-10.2) mg/dL Magnesium (1.6-2.6) mg/dL Total Bilirubin (0.0-1.0) mg/dL AST (5-37) U/L ALT (0-40) U/L Alkaline Phosphatase (39-117) U/L Troponin I High Sens (<3.5-35.0) ng/L B-Natriuretic Peptide 20 (<100) pg/mL Total Protein (6.5-8.0) g/dL Albumin (3.5-5.0) g/dL Lipase (8-78) U/L Ethyl Alcohol < 10 mg/dL Influenza Type A (PCR) NEGATIVE (Negative) Influenza Type B (PCR) NEGATIVE (Negative) RSV RNA Qual (PCR) NEGATIVE (Negative) SARS-CoV-2 RNA (RT-PCR) NEGATIVE (Negative) 08/26/22 Range/Units 17:32 WBC (4.8-10.8) X10*3/uL RBC (4.60-5.80) X10*6/uL Hgb (14.0-18.0) g/dl Hct (42.0-52.0) % MCV (80.0-98.0) fL MCH (27.0-33.0) pg MCHC (31.0-36.0) g/dl RDW (11.0-16.0) % Plt Count (160-400) X10*3/uL MPV (9.4-12.4) fL Immature Gran % (Auto) (0.0-0.4) % Neut % (Auto) (45-73) % Lymph % (Auto) (20-40) % [place] % (Auto) (2-11) % Eos % (Auto) (0-4) % Baso % (Auto) (0-2) % Lymph # (Auto) (1.2-4.9) X10*3/uL [place] # (Auto) (0.1-1.2) X10*3/uL Eos # (Auto) (0.0-0.4) X10*3/uL Baso # (Auto) (0.0-0.2) X10*3/uL Abs Immat Gran (auto) (0.00-0.03) X10*3/uL Absolute Neuts (auto) (2.0-8.3) x10*3/uL Absolute Nucleated RBC (0.0-0.012) X10*3/uL Nucleated RBC % (auto) (0.0-0.2) /100WBC PT (10.0-13.1) SEC INR (0.9-1.1) Sodium (135-145) mmol/L Potassium (3.3-5.1) mmol/L Chloride (96-108) mmol/L Carbon Dioxide (22-29) mmol/L Anion Gap (12-20) BUN (9-16) mg/dL Creatinine (0.5-1.4) mg/dL Estim Creat Clear Calc Estimated GFR Random Glucose (60-115) mg/dL Calcium (8.4-10.2) mg/dL Magnesium (1.6-2.6) mg/dL Total Bilirubin (0.0-1.0) mg/dL AST (5-37) U/L ALT (0-40) U/L Alkaline Phosphatase (39-117) U/L Troponin I High Sens < 3.5 (<3.5-35.0) ng/L B-Natriuretic Peptide (<100) pg/mL Total Protein (6.5-8.0) g/dL Albumin (3.5-5.0) g/dL Lipase (8-78) U/L Ethyl Alcohol mg/dL Influenza Type A (PCR) (Negative) Influenza Type B (PCR) (Negative) RSV RNA Qual (PCR) (Negative) SARS-CoV-2 RNA (RT-PCR) (Negative) <ALBERTINA Samuel - Last Filed: 08/27/22 02:28> Independent Interpretation I performed an independent interpretation of an: EKG ( normal sinus rhythm. Normal EKG. Ventricular rate 76. ME interval 168. QRS 92. QTC 452. Negative STEMI) <ALBERTINA Samuel - Last Filed: 08/27/22 02:28> Radiology Impression Discussion of test interpretation with radiology: I have reviewed the radiologist's reading. <ALBERTINA Samuel Last Filed: 08/27/22 02:28> Prescription Management I considered prescription management with: Antibiotic (cephaelxin) and Other (clomitrazole) <ALBERTINA Samuel Last Filed: 08/27/22 02:28> Discharge Plan Discharge Clinical Impression: Cellulitis, Oral thrush <ALBERTINA Bacon Last Filed: 08/26/22 14:28> Patient Disposition: Home, Self-Care <ALBERTINA Bacon Last Filed: 08/26/22 14:28> Instructions: Wound Infection (ED), Cellulitis (ED), Oral Candidiasis (ED), Warm Compress or Soak (ED) <ALBERTINA Bacon Last Filed: 08/26/22 14:28> Additional Instructions: your EKG and blood work came back fine and negative for signs of heart attack. nystatin can cause abdominal pain. Stop taking nystatin. He will be discharged with cephalexin for mild infection of wound. Return to the ED immediately for any chest pain, shortness of breath, decreased appetite, inability to swallow, abdominal pain, diarrhea, bloody urine, blood in stool, flank pain, fever, chills, or any other concerning symptoms. <ALBERTINA Bacon - Last Filed: 08/26/22 14:28> Prescriptions: New cephalexin 500 mg capsule 500 mg PO QID 7 Days Qty: 28 0RF clotrimazole 10 mg sangeeta 10 mg mucous membrane 5XD 7 Days Qty: 35 0RF No Action Vitamin D (with calcium) 77-400 mg-unit Tablet 400 tab PO DAILY multivitamin Tablet 1 tab PO DAILY (DME) Compression socks, small Misc See Rx Instructions .ROUTE Rx Instructions: As directed <ALBERTINA Bacon - Last Filed: 08/26/22 14:28> Referrals: Andre Valdez MD [Primary Care Provider] - (Thrush) Naresh Fang MD [Physician] - (Left wound infection s/p varicone vein thrombectomy) <ALBERTINA Bacon - Last Filed: 08/26/22 14:28> Stand Alone Forms: Work/School Release <ALBERTINA Bacon - Last Filed: 08/26/22 14:28> Interventions: ED Discharge Assessment Last Done: 08/26/22 20:29 <ALBERTINA Bacon - Last Filed: 08/26/22 14:28> Discharge Date/Time: 08/26/22 20:30 <ALBERTINA Bacon - Last Filed: 08/26/22 14:28> Print Language: Sami <ALBERTINA Bacon - Last Filed: 08/26/22 14:28>
--- NOTE | 2022-08-26 14:38 | MHC.EDTECH ---
labs and covid swab collected and sent
[2022-08-26 14:40] LABS: MANUAL DIFF FLAG NO
[2022-08-26 14:51] LABS: Basophils Absolute Auto 0.1 X10*3/uL (0.0-0.2); Basophils Percent Auto 0.8 % (0-2); Eosinophils Absolute Auto 0.1 X10*3/uL (0.0-0.4); Eosinophils Percent Auto 1.9 % (0-4); Hematocrit 44.6 % (42.0-52.0); Hemoglobin 15.2 g/dl (14.0-18.0); Imm Gran Abs Auto 0.04 X10*3/uL (0.00-0.03); Imm Gran Pct Auto 0.5 % (0.0-0.4); Lymphocytes Absolute Auto 0.9 X10*3/uL (1.2-4.9); Lymphocytes Percent Auto 12.2 % (20-40); Mean Corpuscular HGB Conc 34.1 g/dl (31.0-36.0); Mean Corpuscular Hemoglobin 30.8 pg (27.0-33.0); Mean Corpuscular Volume 90.3 fL (80.0-98.0); Mean Platelet Volume 12.9 fL (9.4-12.4); Monocytes Absolute Auto 0.6 X10*3/uL (0.1-1.2); Monocytes Percent Auto 7.7 % (2-11); Neutrophils Absolute Auto 5.7 x10*3/uL (2.0-8.3); Neutrophils Percent Auto 76.9 % (45-73); Platelet Count 142 X10*3/uL (160-400); Red Blood Count 4.94 X10*6/uL (4.60-5.80); Red Cell Distribution Width 11.9 % (11.0-16.0); White Blood Count 7.4 X10*3/uL (4.8-10.8)
[2022-08-26 14:56] LABS: INTERNATIONAL NORM RATIO 1.1 (0.9-1.1); Prothrombin Time 12.4 SEC (10.0-13.1)
[2022-08-26 15:04] LABS: Alanine Aminotransferase 25 U/L (0-40); Albumin Level 4.3 g/dL (3.5-5.0); Alkaline Phosphatase 97 U/L (39-117); Anion Gap 15 (12-20); Aspartate Amino Transferase 30 U/L (5-37); Bilirubin Total 0.6 mg/dL (0.0-1.0); Blood Urea Nitrogen 17 mg/dL (9-16); Calcium 9.3 mg/dL (8.4-10.2); Carbon Dioxide 25 mmol/L (22-29); Chloride 103 mmol/L (96-108); Creatinine Clr Calc Pharmacy 92.2; Estimated Glomerular Filt Rate > 60; Glucose Random 112 mg/dL (60-115); Lipase 27 U/L (8-78); Magnesium 2.2 mg/dL (1.6-2.6); Potassium 4.1 mmol/L (3.3-5.1); Sodium 139 mmol/L (135-145); Total Protein 6.8 g/dL (6.5-8.0)
[2022-08-26 15:15] LABS: Ethanol < 10 mg/dL
[2022-08-26 15:19] VITALS: BP 156/81; PULSE 78; RESP 16; TEMP 36.7; O2SAT 98
[2022-08-26 15:24] VITALS: BP 156/81; PULSE 78; RESP 16; TEMP 36.7; O2SAT 97
--- NOTE | 2022-08-26 15:25 | PC.NURSE ---
pt AOx3, VSS. reports abdominal discomfort after taking Nystatin for one week. He is also concerned about a red slightly warm rash surrounding the site of a recent phlebectomy. awaiting ED proivder.
[2022-08-26 15:26] LABS: Influenza A PCR NEGATIVE (Negative); Influenza B PCR NEGATIVE (Negative); Resp Syncy Virus RNA Qual PCR NEGATIVE (Negative); SARS COV2 PCR INHOUSE NEGATIVE (Negative)
[2022-08-26 15:52] VITALS: BP 130/84; PULSE 72; RESP 15; TEMP 36.9; O2SAT 99
--- NOTE | 2022-08-26 16:49 | ECG_ITS ---
Test Reason : EPIGASTRIC PAIN Blood Pressure : / mmHG Vent. Rate : 074 BPM Atrial Rate : 074 BPM P-R Int : 168 ms QRS Dur : 092 ms QT Int : 408 ms P-R-T Axes : 058 -01 048 degrees QTc Int : 452 ms Normal sinus rhythm Normal ECG When compared with ECG of 08-SEP-2021 15:11, No significant change was found Referred By: Dustin Huffman Electronically Signed By:Wyatt Higuera
[2022-08-26 17:13] VITALS: BP 136/79; PULSE 72; RESP 16; TEMP 36.9; O2SAT 99
--- NOTE | 2022-08-26 17:17 | PC.NURSE ---
EKG done, labs drawn and sent. Patient awaiting ED provider discussion of ABX for leg and prognosis of thrush
[2022-08-26 17:55] LABS: B Type Natriuretic Peptide 20 pg/mL (<100)
[2022-08-26 17:57] LABS: Troponin-I High Sensitivity < 3.5 ng/L (<3.5-35.0)
== END 2022-08-26 20:30 | disposition home or self-care (01) ==
PROVIDERS: Physician Assistant; Physician Assistant Medical; Emergency Provider Emergency Medicine; PCP Internal Medicine
DX: R10.13 Epigastric pain (principal); L03.311 Cellulitis of abdominal wall; B37.0 Candidal stomatitis; R06.02 Shortness of breath; Z20.822 Contact with and (suspected) exposure to COVID-19; Z20.828 Contact with and (suspected) exposure to other viral communicable diseases; Z79.899 Other long term (current) drug therapy
CPT/HCPCS: 0241U; 36415; 76700; 80053; 82077; 83690; 83735; 83880; 84484; 85025; 85610; 93005; 99284

== ENCOUNTER 2022-11-15 09:45 | Outpatient (REF) | payer OTHER, SELFPAY ==
[2022-11-15 09:57] LABS: MANUAL DIFF FLAG NO
[2022-11-15 10:27] LABS: Basophils Absolute Auto 0.1 X10*3/uL (0.0-0.2); Eosinophils Absolute Auto 0.2 X10*3/uL (0.0-0.4); Eosinophils Percent Auto 4.1 % (0-4); Hematocrit 48.9 % (42.0-52.0); Hemoglobin 16.3 g/dl (14.0-18.0); Imm Gran Abs Auto 0.02 X10*3/uL (0.00-0.03); Imm Gran Pct Auto 0.4 % (0.0-0.4); Lymphocytes Absolute Auto 0.9 X10*3/uL (1.2-4.9); Mean Corpuscular HGB Conc 33.3 g/dl (31.0-36.0); Mean Corpuscular Hemoglobin 30.5 pg (27.0-33.0); Mean Corpuscular Volume 91.4 fL (80.0-98.0); Mean Platelet Volume 13.7 fL (9.4-12.4); Monocytes Absolute Auto 0.5 X10*3/uL (0.1-1.2); Neutrophils Absolute Auto 3.2 x10*3/uL (2.0-8.3); Neutrophils Percent Auto 65.5 % (45-73); Platelet Count 110 X10*3/uL (160-400); Red Blood Count 5.35 X10*6/uL (4.60-5.80); Red Cell Distribution Width 13.2 % (11.0-16.0); White Blood Count 4.8 X10*3/uL (4.8-10.8)
[2022-11-15 11:09] LABS: Erythrocyte Sedimentation Rate 1 MM/HR (0-15)
[2022-11-15 11:20] LABS: Alanine Aminotransferase 31 U/L (0-40); Albumin Level 4.4 g/dL (3.5-5.0); Alkaline Phosphatase 109 U/L (39-117); Anion Gap 13 (12-20); Aspartate Amino Transferase 28 U/L (5-37); Bilirubin Total 0.6 mg/dL (0.0-1.0); Blood Urea Nitrogen 15 mg/dL (9-16); C Reactive Protein 0.29 mg/dL (< or = 0.50); Calcium 9.8 mg/dL (8.4-10.2); Carbon Dioxide 29 mmol/L (22-29); Chloride 104 mmol/L (96-108); Cholesterol 180 mg/dL; Estimated Glomerular Filt Rate > 60; Glucose Random 82 mg/dL (60-115); Potassium 4.5 mmol/L (3.3-5.1); Sodium 141 mmol/L (135-145)
[2022-11-16 20:38] LABS: Transglutaminase Ab IgG <1.0 U/mL
== END 2022-11-15 09:46 | disposition home or self-care (01) ==
LOC: HO.LAB 09:45
PROVIDERS: PCP Internal Medicine; Visit Provider Internal Medicine
DX: R10.9 Unspecified abdominal pain (principal); R19.7 Diarrhea, unspecified
CPT/HCPCS: 36415; 80053; 82465; 85025; 85652; 86140; 86364

== ENCOUNTER 2022-11-30 14:15 | Outpatient (REF) | payer OTHER, SELFPAY | END 2022-11-30 14:16 | disposition home or self-care (01) | LOC: HO.LNP 14:15 | PROVIDERS: Visit Provider Internal Medicine | DX: B48.8 Other specified mycoses (principal) | CPT/HCPCS: 87102 ==

== ENCOUNTER 2023-04-19 10:25 | Outpatient (REF) | payer OTHER, SELFPAY | END 2023-04-19 10:26 | disposition home or self-care (01) | LOC: HO.HMGCX 10:25 | PROVIDERS: Visit Provider Internal Medicine | DX: R10.11 Right upper quadrant pain (principal) | CPT/HCPCS: 76700 ==

== ENCOUNTER 2023-05-07 10:04 | Outpatient (AMB) | payer OTHER, SELFPAY ==
--- NOTE | 2023-05-07 10:06 | A.OFFVIS_ITS ---
Intake Intake Visit Reasons: 9 month leg check no testing Intake Note: pt here for a 9 month leg check fallowing left leg micro on 07/30/22 ..Pt sates that his leg is doing much better.and he wants to discuss antibiotics prior to his next leg procedure Allergies prednisone Allergy (Intermediate, Verified 05/07/23 10:08) Gastrointestinal Upset warfarin [From COUMADIN] Allergy (Intermediate, Verified 05/07/23 10:08) dizziness,GI upset amoxicillin Adverse Reaction (Intermediate, Verified 05/07/23 10:08) Diarrhea HPI 9 month leg check no testing HPI Details Extremely complex 57-year-old gentleman presents for follow-up regarding venous disease. He has undergone left leg treatment in appears to be doing relatively well with that. Of note he did have some postprocedure issues with antibiotics but in general appears to be doing relatively well. He does have some venous disease on the right side which we have not addressed in the past. He continues to be fairly compliant with compression elevation and exercise. In the interim he has discovered that he has hepatocellular disease and possible hepatic steatosis. He is quite concerned about this. He now presents for follow-up regarding venous insufficiency. [facility] Medical History Pulmonary embolism DVT (deep venous thrombosis) Hx of varicose veins of lower extremity Vitiligo Surgical History Hx of nasal polypectomy Hx of varicose vein ligation and stripping Family History Father Poor circulation Mother Cyst COPD (chronic obstructive pulmonary disease) Acid reflux disease Sister Cyst Brother Bone cancer Paternal Aunt Lupus Social History Household Members: Family Household Members Other:: mother Housing: House Are you a primary primary care provider to a significant other at home: No Do you presently have visiting nurse or other home services: No Alcohol intake: current Alcohol intake frequency: holidays/special occasions only Patient Tobacco Use Status: Never used Tobacco service: No Current occupational status: employed Review of Systems Const Reports as per HPI ENT Reports no additional complaints Card Denies chest pain, Denies chest pain at rest and Denies chest pain with activity Resp Denies chest congestion and Denies cough GI Reports no additional complaints Musc Details: pain over varicosities, aching of lower extremities, swelling, cramping, heaviness and tiredness, itching Denies abnormal gait Skin/Breast Reports pruritus and Denies wounds Neuro Reports no additional complaints and Denies abnormal gait Psych Denies no additional complaints Physical Exam Const General: cooperative, healthy appearing and comfortable Orientation/consciousness: oriented to person, oriented to place and oriented to time Neck Carotids: no bruits Chest Chest palpation & inspection: normal inspection of the chest and normal palpation of entire chest wall Resp Effort & Inspection: normal respiratory effort and able to speak in complete sentences Cardio Rate: regular rate Heart sounds: S1 normal heart sound present and S2 normal heart sound present Peripheral pulses: Peripheral pulses 2+ throughout GI Inspection: Yes normal to inspection Skin Other: +2 edema, large rope-like varicosities greater than 4 mm CEAP Classification C4 - skin color changes Ep - Etiology Primary As - superficial veins P - reflux General skin exam: dry skin Neuro General: oriented to person, oriented to place and oriented to time Extrem Right lower extremity: full ROM, normal capillary refill and edema Left lower extremity: full ROM, normal capillary refill and edema Psych Mental Status: mental status grossly normal Results Reviewed Results Reviewed: Brief summary of venous insufficiency testing is as follows from 11/28/2021: right great saphenous vein: Positive right small saphenous vein: Positive right accessory vein: none present left great saphenous vein: Ablated left small saphenous vein: Ablated left accessory vein: none present Please note there is no evidence of any venous aneurysms or significant tortuosity Assessment & Plan Assessment & Plan (1) Varicose veins of left lower extremity with inflammation: Comment: 01/05/2022 - left great saphenous vein radiofrequency ablation 03/16/2022 - left small saphenous vein radiofrequency ablation 07/30/2022 - left leg microphlebectomy Code(s): I83.12 - Varicose veins of left lower extremity with inflammation (2) Varicose veins of right lower extremity with inflammation: Code(s): I83.11 - Varicose veins of right lower extremity with inflammation Plan: In short patient does have venous disease. At the current time it does appear to be stable we did discuss routine conservative measures including compression elevation and exercise. At the current time he is more concerned with his liver issues. He would like to get that resolved prior to any other additional venous treatment. I requested that he call us when he is ready to proceed with any sort of venous disease in at that point we can reassess him and repeat venous insufficiency testing as it is been over a year since we have performed this. He will follow up with us on an as-needed basis. Thank you for allowing us to assist in his care. If there are any questions or concerns please do not hesitate to contact us. Coding Level of Care Code Est Pt Level 4 (21775) Diagnoses Varicose veins of left lower extremity with inflammation I83.12 Varicose veins of right lower extremity with inflammation I83.11
== END 2023-05-07 10:33 | disposition home or self-care (01) ==
PROVIDERS: Visit Provider Surgery Vascular Surgery
DX: I83.12 Varicose veins of left lower extremity with inflammation (principal); I83.11 Varicose veins of right lower extremity with inflammation
CPT/HCPCS: 99214

== ENCOUNTER → 2023-05-07 10:04 | Outpatient (BNVA) | payer OTHER, SELFPAY | PROVIDERS: Visit Provider Surgery Vascular Surgery | DX: I83.12 Varicose veins of left lower extremity with inflammation (principal); I83.11 Varicose veins of right lower extremity with inflammation | CPT/HCPCS: 99212 ==

== ENCOUNTER 2023-05-14 08:03 | Outpatient (REF) | payer OTHER, SELFPAY ==
[2023-05-14 10:40] LABS: MANUAL DIFF FLAG NO
[2023-05-14 10:50] LABS: Basophils Absolute Auto 0.1 X10*3/uL (0.0-0.2); Basophils Percent Auto 1.4 % (0-2); Eosinophils Absolute Auto 0.4 X10*3/uL (0.0-0.4); Eosinophils Percent Auto 9.3 % (0-4); Hematocrit 46.7 % (42.0-52.0); Hemoglobin 15.5 g/dl (14.0-18.0); Imm Gran Abs Auto 0.01 X10*3/uL (0.00-0.03); Imm Gran Pct Auto 0.2 % (0.0-0.4); Lymphocytes Percent Auto 22.2 % (20-40); Mean Corpuscular HGB Conc 33.2 g/dl (31.0-36.0); Mean Corpuscular Hemoglobin 30.7 pg (27.0-33.0); Mean Corpuscular Volume 92.5 fL (80.0-98.0); Mean Platelet Volume 13.9 fL (9.4-12.4); Monocytes Absolute Auto 0.4 X10*3/uL (0.1-1.2); Monocytes Percent Auto 9.3 % (2-11); Neutrophils Absolute Auto 2.5 x10*3/uL (2.0-8.3); Neutrophils Percent Auto 57.6 % (45-73); Platelet Count 126 X10*3/uL (160-400); Red Blood Count 5.05 X10*6/uL (4.60-5.80); Red Cell Distribution Width 12.4 % (11.0-16.0); White Blood Count 4.4 X10*3/uL (4.8-10.8)
[2023-05-14 11:06] LABS: Alanine Aminotransferase 21 U/L (0-40); Albumin Level 4.3 g/dL (3.5-5.0); Alkaline Phosphatase 81 U/L (39-117); Anion Gap 13 (12-20); Aspartate Amino Transferase 25 U/L (5-37); Bilirubin Total 0.6 mg/dL (0.0-1.0); Blood Urea Nitrogen 15 mg/dL (9-16); Calcium 9.7 mg/dL (8.4-10.2); Carbon Dioxide 27 mmol/L (22-29); Chloride 106 mmol/L (96-108); Estimated Glomerular Filt Rate > 60; Glucose Random 90 mg/dL (60-115); Potassium 4.1 mmol/L (3.3-5.1); Sodium 142 mmol/L (135-145)
[2023-05-14 11:21] LABS: Vitamin B12 1152 pg/mL (200-900)
[2023-05-14 11:23] LABS: Vitamin D 25-OH Total 69.2 ng/mL (>30)
== END 2023-05-14 08:04 | disposition home or self-care (01) ==
LOC: HO.10HDL 08:03
PROVIDERS: Visit Provider Internal Medicine
DX: K76.0 Fatty (change of) liver, not elsewhere classified (principal); R63.4 Abnormal weight loss; E55.9 Vitamin D deficiency, unspecified; R53.83 Other fatigue
CPT/HCPCS: 36415; 80053; 82306; 82607; 85025

== ENCOUNTER 2023-07-20 06:36 | Emergency (ER) | payer OTHER, SELFPAY ==
[2023-07-20 06:42] VITALS: BP 116/70; BP 137/79; PULSE 75; PULSE 88; RESP 16; TEMP 36; O2SAT 96; O2SAT 98; BMI 21.8
--- NOTE | 2023-07-20 07:51 | ED.EXTPRO ---
HPI - Extremity Problem General Chief complaint: Extremity Problem Stated complaint: LEFT LEG CRAMPS Time Seen by Provider: 07/20/23 07:13 Source: patient Mode of arrival: EMS History of Present Illness HPI Narrative: 58-year-old male with history of [place], states he has had multiple venous surgeries on the left lower extremity for varicosity, states he has had a previous clot in his left lower extremity but is no longer on anticoagulation. Patient reports that he has had muscle cramping for the past couple nights that is gradually resolved but otherwise denies any fever, chills, shortness of breath, chest pain or palpitations. Related Data Home Medications Medication Instructions Recorded Confirmed calcium phosphate,dibasic 77 400 tab PO DAILY 11/21/20 07/25/22 mg-vitamin D3 400 unit tablet multivitamin 1 tab PO DAILY 06/26/21 07/25/22 Compression socks, small 01/18/22 Previous Rx's Medication Instructions Recorded cephalexin 500 mg capsule 500 mg PO QID 7 days #28 caps 08/26/22 clotrimazole 10 mg sangeeta 10 mg mucous membrane 5XD 7 days 08/26/22 #35 tabs Allergies Allergy/AdvReac Type Severity Reaction Status Date / Time prednisone Allergy Intermediate Gastrointestinal Verified 05/07/23 10:08 Upset warfarin [From COUMADIN] Allergy Intermediate dizziness,GI Verified 05/07/23 10:08 upset amoxicillin AdvReac Intermediate Diarrhea Verified 05/07/23 10:08 Review of Systems Review of Systems: Pertinent positives and negatives as stated in HPI PMFSH Past Medical History Source: nursing notes reviewed Onset Date is defined in the Problem List Problems that require an onset date and time if occurred within 24 hrs of arrival to the ED Aortic Dissection and Rupture; Neurologic impairment; Cardiopulmonary Arrest; Endotracheal Intubation; Insertion or Replacement of Mechanical Circulatory Assist Device Medical History Pulmonary embolism DVT (deep venous thrombosis) Hx of varicose veins of lower extremity Vitiligo Surgical History Hx of nasal polypectomy Hx of varicose vein ligation and stripping Family History Family History Father Poor circulation Mother Cyst COPD (chronic obstructive pulmonary disease) Acid reflux disease Sister Cyst Brother Bone cancer Paternal Aunt Lupus Social History Social History Household Members: Family Household Members Other:: mother Housing: House Are you a primary cardiac care unit nurse to a significant other at home: No Do you presently have visiting nurse or other home services: No Alcohol intake: current Alcohol intake frequency: holidays/special occasions only Patient Tobacco Use Status: Never used Tobacco Advance Directives: No Advance Directives Information Provided: No service: No Current occupational status: employed Physical Exam Vital Signs: Vital Signs: Last Vital Signs Temp 96.8 F 07/20/23 06:42 Pulse 75 07/20/23 06:42 Resp 16 07/20/23 06:42 BP 137/79 07/20/23 06:42 Pulse Ox 96 07/20/23 06:42 O2 Del Method Room Air 07/20/23 06:42 BMI result Body Mass Index 21.8 VITAL SIGNS: Reviewed. GENERAL: Well developed, well nourished, in no acute distress. HEAD: Normocephalic/atraumatic EYES: PERRLA, EOMI EARS: Ext canals without abnormality LUNGS: Normal breath sounds. No adventitious sounds or accessory muscle use. SpO2<96> CARDIOVASCULAR: Regular rate and rhythm without noted murmurs ABDOMEN: Soft, non-tender, non-distended with bowel sounds. MUSCULOSKELETAL: No tenderness, deformities, or effusions noted on gross inspection. EXTREMITIES: No cyanosis, clubbing or edema. LLE: No palpable cords, no erythema or induration noted, neurovascularly intact distal SKIN: Inspection of the skin reveals no rashes NEUROLOGIC: Alert and oriented x 4. Strength and sensation to light touch were grossly intact x 4. Medical Decision Making Medical Decision Making [facility] Narrative: 58-year-old male with history and clinical presentation suggestive of possible muscle cramp, lower clinical suspicion for DVT and no clinical suspicion for cellulitis or infection. I reviewed all investigations and D-dimer is undetectable, chemistry indices are grossly within normal limits without evidence of electrolyte derangements. Patient was reassured and encouraged to follow-up with his primary care doctor. Differential Diagnosis Differential Diagnoses: The differential diagnosis associated with the presentation includes Please see the discussion above Admission/Observation Consideration of admission/observation: Escalation of care including admission/observation considered Please see the discussion above Lab Data [facility] Lab Attestation statement: I reviewed the patient's lab results. Please see the discussion above 07/20/23 08:01 Labs: Lab Results 07/20/23 Range/Units 08:01 D-Dimer High Sensitivty < 150 NG/ML Sodium 141 (135-145) mmol/L Potassium 3.6 (3.3-5.1) mmol/L Chloride 106 (96-108) mmol/L Carbon Dioxide 28 (22-29) mmol/L Anion Gap 11 L (12-20) BUN 18 H (9-16) mg/dL Creatinine 0.83 (0.5-1.4) mg/dL Estim Creat Clear Calc 96.2 Estimated GFR > 60 Random Glucose 96 (60-115) mg/dL Calcium 9.2 (8.4-10.2) mg/dL External Record Review External record reviewed: Outpatient record and Prior outpatient labs Discharge Plan Discharge Clinical Impression: Cramp in muscle Patient Disposition: Home, Self-Care Instructions: Muscle Cramp (ED) Additional Instructions: Your workup today is negative or other etiologies of your muscle cramps. I recommend that you follow-up with your primary care doctor on Saturday. My note from today has been copied over to Dr. Valdez's office. Return to the ER for any worsening symptoms. Prescriptions: No Action Vitamin D (with calcium) 77-400 mg-unit Tablet 400 tab PO DAILY multivitamin Tablet 1 tab PO DAILY cephalexin 500 mg capsule 500 mg PO QID 7 Days Qty: 28 0RF clotrimazole 10 mg sangeeta 10 mg mucous membrane 5XD 7 Days Qty: 35 0RF (DME) Compression socks, small Misc See Rx Instructions .ROUTE Rx Instructions: As directed Referrals: Andre Valdez MD [Physician] -
== END 2023-07-20 10:30 | disposition home or self-care (01) ==
PROVIDERS: Emergency Provider Student in an Organized Health Care Education/Training Program
DX: R25.2 Cramp and spasm (principal); M79.605 Pain in left leg
CPT/HCPCS: 36415; 80048; 85379; 99282; 99283

== ENCOUNTER 2023-09-26 08:19 | Outpatient (REF) | payer OTHER, SELFPAY ==
[2023-09-26 08:57] LABS: MANUAL DIFF FLAG NO
[2023-09-26 09:28] LABS: Basophils Absolute Auto 0.1 X10*3/uL (0.0-0.2); Basophils Percent Auto 1.1 % (0-2); Eosinophils Absolute Auto 0.2 X10*3/uL (0.0-0.4); Eosinophils Percent Auto 5.3 % (0-4); Hematocrit 47.4 % (42.0-52.0); Hemoglobin 16.2 g/dl (14.0-18.0); Imm Gran Abs Auto 0.03 X10*3/uL (0.00-0.03); Imm Gran Pct Auto 0.7 % (0.0-0.4); Lymphocytes Percent Auto 22.1 % (20-40); Mean Corpuscular HGB Conc 34.2 g/dl (31.0-36.0); Mean Corpuscular Hemoglobin 32.1 pg (27.0-33.0); Mean Corpuscular Volume 93.9 fL (80.0-98.0); Mean Platelet Volume 12.8 fL (9.4-12.4); Monocytes Absolute Auto 0.5 X10*3/uL (0.1-1.2); Monocytes Percent Auto 10.1 % (2-11); Neutrophils Absolute Auto 2.8 x10*3/uL (2.0-8.3); Neutrophils Percent Auto 60.7 % (45-73); Platelet Count 146 X10*3/uL (160-400); Red Blood Count 5.05 X10*6/uL (4.60-5.80); Red Cell Distribution Width 12.4 % (11.0-16.0); White Blood Count 4.6 X10*3/uL (4.8-10.8)
[2023-09-26 10:02] LABS: Appearance Urine Clear; Color Urine Yellow; Glucose Urine UA Negative (Negative); Leukocyte Esterase Urine Negative (Negative); Nitrite Urine Negative (Negative); Specific Gravity - Urine <= 1.005 (1.005-1.025); Urine Blood Negative (Negative); Urine Ketones Negative (Negative); Urine Protein Negative (Neg-Trace)
[2023-09-26 10:05] LABS: Alanine Aminotransferase 27 U/L (0-40); Albumin Level 4.6 g/dL (3.5-5.0); Alkaline Phosphatase 75 U/L (39-117); Anion Gap 11 (12-20); Aspartate Amino Transferase 30 U/L (5-37); Bilirubin Total 0.6 mg/dL (0.0-1.0); Blood Urea Nitrogen 19 mg/dL (9-16); Calcium 9.6 mg/dL (8.4-10.2); Carbon Dioxide 29 mmol/L (22-29); Chloride 105 mmol/L (96-108); Cholesterol 252 mg/dL (<200); Estimated Glomerular Filt Rate > 60; Glucose Fasting 94 mg/dL (60-99); HDL Cholesterol 91 mg/dL (>40); LDL Cholesterol Calculated 155 mg/dL (<100); Potassium 4.3 mmol/L (3.3-5.1); Sodium 141 mmol/L (135-145); Total Protein 7.3 g/dL (6.5-8.0); Triglycerides 30 mg/dL (<150)
[2023-09-26 10:18] LABS: Prostate Specific Antigen 0.35 ng/mL (<0.05-4.0)
== END 2023-09-26 08:20 | disposition home or self-care (01) ==
LOC: HO.LAB 08:19
PROVIDERS: PCP Internal Medicine; Visit Provider Internal Medicine
DX: Z12.5 Encounter for screening for malignant neoplasm of prostate (principal); R30.0 Dysuria; R35.1 Nocturia; K76.0 Fatty (change of) liver, not elsewhere classified; I83.90 Asymptomatic varicose veins of unspecified lower extremity
CPT/HCPCS: 36415; 80053; 80061; 81003; 84153; 85025; 87086

== ENCOUNTER 2023-10-14 07:48 | Outpatient (REF) | payer OTHER, SELFPAY ==
--- NOTE | ~2023-10-14 | US_ITS ---
EXAMINATION: US ABDOMEN COMPLETE CLINICAL INFORMATION: Fatty liver. COMPARISON: Ultrasound abdomen complete 04/19/2023 and 08/26/2022. CT abdomen and pelvis 11/12/2020. TECHNIQUE: Real-time imaging of the abdominal viscera. Limited visualization due to bowel gas. FINDINGS: PANCREAS: Limited visualization of pancreatic tail and head. Imaged portion of pancreatic body is unremarkable. ABDOMINAL AORTA: Unremarkable. INFERIOR VENA CAVA: Visualized portions are normal. LIVER: Diffuse increase in echogenicity of the liver is characteristic of primary hepatocellular disease, possibly due to hepatic steatosis and further limits visualization. Right hepatic 1.5 x 1.5 x 1.2 cm echogenic lesion, previously measured 1.1 x 1.1 x 1.1 cm on ultrasound of 10/02/2013. CT scan of 11/12/2020 demonstrated a 1.1 cm low-attenuation lesion felt to be likely unchanged. GALLBLADDER: No gallstones. No gallbladder wall thickening. COMMON BILE DUCT: Normal in caliber measuring 0.5 cm in diameter. RIGHT KIDNEY: No hydronephrosis. No renal calculi. Limited visualization. The kidney measures 9.9 cm in maximum dimension. LEFT KIDNEY: No hydronephrosis. No renal calculi. Limited visualization. The kidney measures 10.1 cm in maximum dimension. SPLEEN: Normal. The spleen measures 8.8 cm in maximum dimension. FREE FLUID: None. US/US abdomen complete IMPRESSION: 1. Diffuse increase in echogenicity of the liver is characteristic of primary hepatocellular disease, possibly due to hepatic steatosis and further limits visualization. 2. Right hepatic 1.5 cm echogenic lesion redemonstrated, possibly representing a hemangioma, and increased in size since ultrasound of 10/02/2013 when it measured 1.1 x 1.1 x 1.1 cm. MRI recommended for further evaluation.
== END 2023-10-14 07:49 | disposition home or self-care (01) ==
LOC: HO.US 07:48
PROVIDERS: PCP Internal Medicine; Visit Provider Internal Medicine
DX: K76.0 Fatty (change of) liver, not elsewhere classified (principal)
CPT/HCPCS: 76700

== ENCOUNTER 2023-10-20 16:30 | Emergency (ER) | payer OTHER, SELFPAY ==
[2023-10-20 17:15] VITALS: BP 123/85; PULSE 81; RESP 20; TEMP 36.6; O2SAT 100; BMI 28.1
== END 2023-10-20 20:00 | disposition left against medical advice (07) ==
PROVIDERS: Emergency Provider Emergency Medicine; PCP Internal Medicine
DX: Z53.21 Procedure and treatment not carried out due to patient leaving prior to being seen by health care provider (principal); K46.9 Unspecified abdominal hernia without obstruction or gangrene; N39.0 Urinary tract infection, site not specified
CPT/HCPCS: 99281

== ENCOUNTER 2023-11-15 12:24 | Emergency (ER) | payer OTHER, SELFPAY ==
--- NOTE | ~2023-11-15 | US_ITS ---
EXAMINATION: US PELVIS, LIMITED/FOLLOW UP CLINICAL INFORMATION: Right inguinal hernia COMPARISON: Previous CT of the abdomen and pelvis from 2020 TECHNIQUE: Grayscale imaging of the right inguinal region was performed using a linear transducer. Patient performed Valsalva maneuver. FINDINGS: There is a right inguinal hernia containing fat. This appears mobile with Valsalva maneuver. No evidence of strangulation or incarceration. This has a wide 3 cm neck. US/US pelvic limited IMPRESSION: Right inguinal hernia containing fat.
[2023-11-15 12:33] VITALS: BP 128/81; PULSE 76; RESP 19; TEMP 36.6; O2SAT 98; BMI 21.9
--- NOTE | 2023-11-15 12:33 | ED_ITS ---
HPI - General Adult General Chief complaint: General Medical Stated complaint: hernia Source: patient Mode of arrival: ambulatory Limitations: no limitations History of Present Illness HPI narrative: Patient is a 58-year-old male with known right inguinal hernia diagnosed a few weeks ago. Reports symptoms around 1 month. Saw surgeon on 11/05 who ordered an outpatient CT scan but patient has not had the scan yet. Reports pain improves at night and worsens in the morning with sitting/working. Denies any abrupt worsening of his pain. Denies any difficulty urinating or other urinary symptoms. Denies fevers. Denies any nausea or vomiting. MD complaint: Groin pain Onset (ago): month(s) Location: pelvis Severity scale (1-10): 6 Quality: aching Pain Consistency: colicky Relieving factors: rest Exacerbating factors: movement Associated symptoms: denies other symptoms Treatments prior to arrival: none Related Data Home Medications ?Medication ?Instructions ?Recorded ?Confirmed calcium phosphate,dibasic 77 400 tab PO DAILY 11/21/20 07/25/22 mg-vitamin D3 400 unit tablet multivitamin 1 tab PO DAILY 06/26/21 07/25/22 Compression socks, small 01/18/22 Previous Rx's ?Medication ?Instructions ?Recorded cephalexin 500 mg capsule 500 mg PO QID 7 days #28 caps 08/26/22 clotrimazole 10 mg sangeeta 10 mg mucous membrane 5XD 7 days 08/26/22 #35 tabs Allergies Allergy/AdvReac Type Severity Reaction Status Date / Time prednisone Allergy Intermediate Gastrointestinal Verified 11/15/23 12:37 Upset warfarin [From COUMADIN] Allergy Intermediate dizziness,GI Verified 11/15/23 12:37 upset amoxicillin AdvReac Intermediate Diarrhea Verified 11/15/23 12:37 Review of Systems 2 Review of Systems: As per HPI. Yes all other systems are reviewed and are negative Constitutional: Constitutional: Reports as per HPI PMFSH Past Medical History Medical History Pulmonary embolism DVT (deep venous thrombosis) Hx of varicose veins of lower extremity Vitiligo Surgical History Hx of nasal polypectomy Hx of varicose vein ligation and stripping Family History Family History Father Poor circulation Mother Cyst COPD (chronic obstructive pulmonary disease) Acid reflux disease Sister Cyst Brother Bone cancer Paternal Aunt Lupus Social History Social History Household Members: Family Household Members Other:: mother Housing: House Are you a primary care advocate to a significant other at home: No Do you presently have visiting nurse or other home services: No Alcohol intake: current Alcohol intake frequency: holidays/special occasions only Patient Tobacco Use Status: Never used Tobacco Advance Directives: No Advance Directives Information Provided: No service: No Current occupational status: employed Physical Exam ED Vital Signs: Vital Signs - 24 hr 11/15/23 12:33 Temperature 98 F Pulse Rate 76 Respiratory Rate 19 Blood Pressure 128/81 Pulse Oximetry 98 Oxygen Delivery Method Room Air BMI result Body Mass Index 21.9 Vital signs have been reviewed and appear to be correct. Blood pressure normal. Heart rate normal. Respiratory rate normal. Temperature normal. Oxygen saturation normal. Const General: cooperative, healthy appearing and no acute distress Orientation/consciousness: oriented to person, oriented to place, oriented to time and patient oriented x3 Limitations: no limitations HENMT Head: Yes normocephalic and Yes atraumatic Ears: external ears normal General nose exam: Normal external nose present Face and sinus: Yes face symmetric Mouth: oropharynx normal and moist mucous membranes Throat: Yes uvula midline Eyes Pupils: Equal, round and reactive pupils present Neck Neck: Yes normal visual inspection and Yes supple Resp Effort & Inspection: normal respiratory effort and able to speak in complete sentences Auscultation: clear to auscultation bilaterally Cardio Rate: regular rate Rhythm: regular rhythm Heart sounds: S1 normal heart sound present and S2 normal heart sound present GI Palpation (GI): Soft to palpation and nontender Auscultation: normoactive bowel sounds General: Yes no CVA tenderness Male General Exam: Yes hernia (right ) Back/Spine/Pelvis Back: no CVA tenderness Skin General skin exam: elasticity normal and turgor normal Neuro General: oriented to person, oriented to place, oriented to time, patient oriented x3, moves all extremities, no focal motor deficits and CN's II-XI intact bilaterally Cranial nerves: Yes Equal, round and reactive pupils present Cognition (Neuro): normal cognition Extrem General: Yes full ROM, Yes no pedal edema and Yes no calf tenderness Psych Mental Status: mental status grossly normal Affect: normal affect Thought process: Normal thought process present Medical Decision Making Medical Decision Making [facility] Narrative: Patient is a 58-year-old male with known right inguinal hernia diagnosed a few weeks ago. On exam patient is awake, A+Ox3, VS WNL, afebrile, normal neurological exam without focal deficits, physical exam findings as above. Given reported symptoms and physical exam findings, initial differential includes inguinal hernia, incarcerated/strangulated hernia. Labs notable for no leukocytosis, chronic thrombocytopenia. Ultrasound notable for fat containing right inguinal hernia without evidence of strangulation/incarceration. My interpretation is in agreement with the radiologist's interpretation. Patient updated on results and all questions answered. Advised patient to alternate Tylenol and ibuprofen as needed for pain. Advised him to avoid any strenuous or heavy lifting. Instructed him to keep appointment with surgeon and obtain outpatient CT scan as previously ordered. Return precautions discussed. Patient verbalized understanding of and agreement with plan. Differential Diagnosis Differential Diagnoses: The differential diagnosis associated with the presentation includes As per [facility]. Admission/Observation Consideration of admission/observation: Escalation of care including admission/observation considered Patient would have been admitted to the hospital had their work up had any findings where hospital admission was appropriate and their clinical presentation warranted hospital admission. Lab Data [facility] Lab Attestation statement: I reviewed the patient's lab results. As per [facility]. 11/15/23 12:49 11/15/23 12:49 Labs: Lab Results 11/15/23 Range/Units 12:49 WBC 5.8 (4.8-10.8) X10*3/uL RBC 4.95 (4.60-5.80) X10*6/uL Hgb 16.0 (14.0-18.0) g/dl Hct 45.6 (42.0-52.0) % MCV 92.1 (80.0-98.0) fL MCH 32.3 (27.0-33.0) pg MCHC 35.1 (31.0-36.0) g/dl RDW 12.0 (11.0-16.0) % Plt Count 137 L (160-400) X10*3/uL MPV 12.7 H (9.4-12.4) fL Immature Gran % (Auto) 0.3 (0.0-0.4) % Neut % (Auto) 66.8 (45-73) % Lymph % (Auto) 18.0 L (20-40) % Foard % (Auto) 8.2 (2-11) % Eos % (Auto) 5.5 H (0-4) % Baso % (Auto) 1.2 (0-2) % Lymph # (Auto) 1.1 L (1.2-4.9) X10*3/uL Foard # (Auto) 0.5 (0.1-1.2) X10*3/uL Eos # (Auto) 0.3 (0.0-0.4) X10*3/uL Baso # (Auto) 0.1 (0.0-0.2) X10*3/uL Abs Immat Gran (auto) 0.02 (0.00-0.03) X10*3/uL Absolute Neuts (auto) 3.9 (2.0-8.3) x10*3/uL Absolute Nucleated RBC 0.000 (0.0-0.012) X10*3/uL Nucleated RBC % (auto) 0.0 (0.0-0.2) /100WBC Sodium 140 (135-145) mmol/L Potassium 4.3 (3.3-5.1) mmol/L Chloride 101 (96-108) mmol/L Carbon Dioxide 29 (22-29) mmol/L Anion Gap 14 (12-20) BUN 25 H (9-16) mg/dL Creatinine 1.08 (0.5-1.4) mg/dL Estim Creat Clear Calc 74.1 Estimated GFR > 60 Random Glucose 107 (60-115) mg/dL Calcium 9.9 (8.4-10.2) mg/dL Total Bilirubin 0.5 (0.0-1.0) mg/dL AST 22 (5-37) U/L ALT 19 (0-40) U/L Alkaline Phosphatase 73 (39-117) U/L Total Protein 7.2 (6.5-8.0) g/dL Albumin 4.5 (3.5-5.0) g/dL Independent Interpretation I performed an independent interpretation of an: Ultrasound Interpretation: Right inguinal hernia containing fat, no evidence of strangulation or incarceration Radiology Impression Discussion of test interpretation with radiology: I have reviewed the radiologist's reading. Radiologist Impression: US/US pelvic limited IMPRESSION: Right inguinal hernia containing fat. External Record Review External record reviewed: Inpatient record, Office record and Outpatient record Discharge Plan Discharge Patient Disposition: Home, Self-Care Instructions: Inguinal Hernia (ED), Inguinal Hernia Repair (DC) Additional Instructions: You were evaluated in the emergency department for pain related to a known inguinal hernia. Your evaluation did not show evidence of strangulation or incarceration of the hernia. Please follow up with your previously scheduled CT scan ordered outpatient by your surgeon. We recommend taking 650mg Tylenol and 400mg ibuprofen every 6 hours as needed for pain. If necessary, you can alternate these medications every 3 hours. For examply, at 9am take ibuprofen, then at noon take Tylenol, then at 3pm take ibuprofen, etc. Please follow up with your primary care provider as well. Return to the emergency department if you develop worsening pain, fever, difficulty or inability to urinate, persistent vomiting or any other concerning symptoms. Prescriptions: No Action Vitamin D (with calcium) 77-400 mg-unit Tablet 400 tab PO DAILY multivitamin Tablet 1 tab PO DAILY cephalexin 500 mg capsule 500 mg PO QID 7 Days Qty: 28 0RF clotrimazole 10 mg sangeeta 10 mg mucous membrane 5XD 7 Days Qty: 35 0RF (DME) Compression socks, small Misc See Rx Instructions .ROUTE Rx Instructions: As directed Referrals: [facility] [place] [facility] [Provider Group] Print Language: Colombian
[2023-11-15 12:56] LABS: MANUAL DIFF FLAG NO
[2023-11-15 13:01] LABS: Basophils Absolute Auto 0.1 X10*3/uL (0.0-0.2); Basophils Percent Auto 1.2 % (0-2); Eosinophils Absolute Auto 0.3 X10*3/uL (0.0-0.4); Eosinophils Percent Auto 5.5 % (0-4); Hematocrit 45.6 % (42.0-52.0); Imm Gran Abs Auto 0.02 X10*3/uL (0.00-0.03); Imm Gran Pct Auto 0.3 % (0.0-0.4); Lymphocytes Absolute Auto 1.1 X10*3/uL (1.2-4.9); Mean Corpuscular HGB Conc 35.1 g/dl (31.0-36.0); Mean Corpuscular Hemoglobin 32.3 pg (27.0-33.0); Mean Corpuscular Volume 92.1 fL (80.0-98.0); Mean Platelet Volume 12.7 fL (9.4-12.4); Monocytes Absolute Auto 0.5 X10*3/uL (0.1-1.2); Monocytes Percent Auto 8.2 % (2-11); Neutrophils Absolute Auto 3.9 x10*3/uL (2.0-8.3); Neutrophils Percent Auto 66.8 % (45-73); Platelet Count 137 X10*3/uL (160-400); Red Blood Count 4.95 X10*6/uL (4.60-5.80); White Blood Count 5.8 X10*3/uL (4.8-10.8)
[2023-11-15 13:19] LABS: Alanine Aminotransferase 19 U/L (0-40); Albumin Level 4.5 g/dL (3.5-5.0); Alkaline Phosphatase 73 U/L (39-117); Anion Gap 14 (12-20); Aspartate Amino Transferase 22 U/L (5-37); Bilirubin Total 0.5 mg/dL (0.0-1.0); Blood Urea Nitrogen 25 mg/dL (9-16); Calcium 9.9 mg/dL (8.4-10.2); Carbon Dioxide 29 mmol/L (22-29); Chloride 101 mmol/L (96-108); Creatinine Clr Calc Pharmacy 74.1; Estimated Glomerular Filt Rate > 60; Glucose Random 107 mg/dL (60-115); Potassium 4.3 mmol/L (3.3-5.1); Sodium 140 mmol/L (135-145); Total Protein 7.2 g/dL (6.5-8.0)
[2023-11-15 14:43] VITALS: BP 190/73; PULSE 73; RESP 16; TEMP 36.6; O2SAT 100
== END 2023-11-15 15:33 | disposition home or self-care (01) ==
PROVIDERS: Registered Nurse Emergency; Emergency Provider Emergency Medicine; PCP Internal Medicine
DX: K40.90 Unilateral inguinal hernia, without obstruction or gangrene, not specified as recurrent (principal)
CPT/HCPCS: 36415; 76857; 80053; 85025; 99282; 99284

== ENCOUNTER 2023-11-22 08:06 | Outpatient (AMB) | payer OTHER, SELFPAY ==
--- NOTE | 2023-11-22 08:13 | A.OFFVIS_ITS ---
Vital Signs 11/22/23 08:29 11/22/23 08:30 Height 5 ft 11 in Weight 156 lb BMI 21.8 BP 140/64 H 119/69 Blood Pressure Location Rt brachial Lt brachial Position Sitting Sitting Pulse 69 71 Intake Visit Reasons: right inguinal hernia Intake Note: Patient is seen in office for ER follow up visit, following right inguinal hernia. Pt c/o: reports right inguinal hernia, reports bulge, reports tearing sensation, reports burning sensation, reports no changes to bowel habits, reports pain. ER & us:11/15/23 Escrow Representative Required: No Accompanied by: Self / Same As Patient Allergies prednisone Allergy (Intermediate, Verified 11/15/23 12:37) Gastrointestinal Upset warfarin [From COUMADIN] Allergy (Intermediate, Verified 11/15/23 12:37) dizziness,GI upset amoxicillin Adverse Reaction (Intermediate, Verified 11/15/23 12:37) Diarrhea Medication List - Last Reconciled 11/22/23 by Dav Fernández MD acetaminophen ER (Tylenol 8 Hour) 650 mg PO Q12H calcium phos,dibas-vitamin D3 77-400 mg-unit 400 tabs PO DAILY clotrimazole 10 mg mucous membrane 5XD 7 days Compression socks, small As directed ibuprofen 400 mg PO Q8H multivitamin 1 tab PO DAILY HPI Comments Details: 58-year-old male patient presenting for evaluation of a right inguinal hernia which developed proximally 1 month ago. Since this time it has increased in size and is causing increased discomfort especially when standing. The symptoms do improve when laying down at night. He has a previous history of DVT and pulmonary embolism and is currently being treated for varicose veins. He was seen in the emergency department on 11/15/2023 at which time an ultrasound of the right groin was performed. This confirmed a fat containing right inguinal hernia which was reducible. Defect measured approximately 3 cm. Presents today to discuss repair of this reducible right inguinal hernia. He denies nausea, vomiting, fever or chills. His bowels are normal as well. [facility] Medical History Pulmonary embolism DVT (deep venous thrombosis) Hx of varicose veins of lower extremity Vitiligo Surgical History Hx of nasal polypectomy Hx of varicose vein ligation and stripping Family History Father Poor circulation Mother Cyst COPD (chronic obstructive pulmonary disease) Acid reflux disease Sister Cyst Brother Bone cancer Paternal Aunt Lupus Social History Household Members: Family Household Members Other:: mother Housing: House Are you a primary health care facilities inspector to a significant other at home: No Do you presently have visiting nurse or other home services: No Alcohol intake: current Alcohol intake frequency: holidays/special occasions only Patient Tobacco Use Status: Never used Tobacco service: No Current occupational status: employed Review of Systems Const All systems reviewed & are unremarkable except as noted in HPI and below Denies chills, Denies fever(s), Denies headache(s), Denies poor appetite and Denies weakness ENT Denies headache(s) Card Denies chest pain, Denies irregular heart rhythm, Denies palpitations and Denies dyspnea Resp Denies cough, Denies excessive phlegm production and Denies dyspnea GI Reports abdominal pain, Denies bloating, Denies change in bowel habits, Denies constipation, Denies heartburn, Denies diarrhea, Denies nausea and Denies vomiting Denies difficulty urinating and Denies urinary frequency Musc Denies back pain, Denies muscle weakness and Denies numbness Skin/Breast Denies changing lesions and Denies unusual bruising Neuro Denies headache(s), Denies numbness, Denies paresthesias and Denies weakness Psych Denies anxiety and Denies depression Endo Denies palpitations Mika/Lymph Denies lymphadenopathy Physical Exam Vital Signs: Last Vital Signs Pulse 71 11/22/23 08:30 BP 119/69 11/22/23 08:30 BMI result Body Mass Index 21.8 Const General: cooperative and no acute distress Nutritional Appearance: well nourished Orientation/consciousness: patient oriented x3 Limitations: no limitations HEENT Head: Yes normocephalic and Yes atraumatic Ears: hearing grossly normal bilaterally Resp Effort & Inspection: normal respiratory effort, no audible wheezes, no cough and no respiratory distress Cardio Jugular venous distension: no JVD GI Other: Reducible right inguinal hernia noted while in the standing position. The hernia increases in size with Valsalva maneuvers. The hernia reduces with light pressure. No left inguinal hernias identified. Inspection: Yes normal to inspection Skin Other: Warm, dry, no rash Neuro General: patient oriented x3 Extrem General: Yes no clubbing, cyanosis or edema Assessment & Plan Assessment & Plan (1) Reducible right inguinal hernia: Code(s): K40.90 - Unilateral inguinal hernia, without obstruction or gangrene, not specified as recurrent Category: Medical Plan 58-year-old male patient presenting with a reducible right inguinal hernia of approximately 1 month's duration. On examination does indeed have a reducible right inguinal hernia which has some tenderness to palpation. I recommended an open repair with mesh. After discussion of the procedure, risks, and alternatives, he consents to a right inguinal hernia repair with mesh. Coding Level of Care Code New Pt Level 4 (85268) Diagnoses Reducible right inguinal hernia K40.90
[2023-11-22 08:29] VITALS: BP 140/64; PULSE 69; BMI 21.8
[2023-11-22 08:30] VITALS: BP 119/69; PULSE 71
== END 2023-11-22 08:50 | disposition home or self-care (01) ==
PROVIDERS: PCP Internal Medicine; Visit Provider Surgery
DX: K40.90 Unilateral inguinal hernia, without obstruction or gangrene, not specified as recurrent (principal)
CPT/HCPCS: 99204

== ENCOUNTER → 2023-11-22 08:06 | Outpatient (BNVA) | payer OTHER, SELFPAY | PROVIDERS: PCP Internal Medicine; Visit Provider Surgery | DX: K40.90 Unilateral inguinal hernia, without obstruction or gangrene, not specified as recurrent (principal); L72.0 Epidermal cyst | CPT/HCPCS: 99202 ==

== ENCOUNTER 2023-12-11 08:44 | Day surgery (SDC) | payer OTHER, SELFPAY ==
[2023-12-03 10:44] VITALS: BMI 21.8
[2023-12-11] VITALS (8 sets, daily range): BP systolic 125–144; BP diastolic 71–85; PULSE 84–100; RESP 16–18; TEMP 36.1–36.5; O2SAT 96–98; BMI 21.5
[2023-12-11] MEDS: Lactated Ringers 1,000 ML 100 ML IVCONT (09:40)
--- NOTE | 2023-12-11 10:57 | HO.ANESPROP2 ---
HPI - Anesthesia Eval Consult details Narrative: 58 yo male patient for Repair of Right Reducible Inguinal hernia with mesh and Excision of Right back sebaceous cyst PMFSH Active Problems Active Problems: All Active Problems Epidermal cyst (Acute) Reducible right inguinal hernia (Acute) Varicose veins of right lower extremity with inflammation (Acute) Varicose veins of left lower extremity with inflammation (Acute) Pulmonary embolism (Acute) Blood clot in vein (Acute) Past Medical History Medical History Nonalcoholic fatty liver disease Vasovagal reaction Pulmonary embolism DVT (deep venous thrombosis) Hx of varicose veins of lower extremity Vitiligo Family History Family History Father Poor circulation Mother Cyst COPD (chronic obstructive pulmonary disease) Acid reflux disease Sister Cyst Brother Bone cancer Paternal Aunt Lupus Family history of problems with anesthesia: No Surgical History Surgical History History of surgery Hx of nasal polypectomy Hx of varicose vein ligation and stripping History of Problems with Anesthesia: No Social History Social History Household Members: Family Household Members Other:: mother Housing: House Are you a primary child care attendant school to a significant other at home: No Do you presently have visiting nurse or other home services: No Alcohol intake: current Alcohol intake frequency: holidays/special occasions only Comment: using cane to hernia pain Patient Tobacco Use Status: Never used Tobacco Substance Use Type Other:: last used ~ age 44 Have you been hit, kicked, punched, or otherwise hurt by someone within the past year? If so, by whom?: No Are you DNR?: No Advance Directives: No Advance Directives Information Provided: Yes Advance Directives on File: No Recently lost weight without trying: No Eating poorly because of decreased appetite: No Nutrition Risks: No Nutritional Risk Poor oral hygiene: No service: No Current occupational status: employed Meds Allergies Allergy/AdvReac Type Severity Reaction Status Date / Time prednisone Allergy Intermediate Gastrointestinal Verified 11/15/23 12:37 Upset warfarin [From COUMADIN] Allergy Intermediate dizziness,GI Verified 11/15/23 12:37 upset amoxicillin AdvReac Intermediate Diarrhea Verified 11/15/23 12:37 Active Medications: Current Medications Lactated Ringer's (Lr) 1,000 mls @ 50 mls/hr IVCONT .Q20H SANTANA Lactated Ringer's (Lr) 1,000 mls @ 100 mls/hr IVCONT .Q10H SANTANA Last Admin: 12/11/23 09:40 Dose: 100 mls/hr Home Medications ?Medication ?Instructions ?Recorded ?Confirmed ?Last Taken ?Type calcium phosphate,dibasic 77 400 tab PO DAILY 11/21/20 12/03/23 Unknown History mg-vitamin D3 400 unit tablet multivitamin 1 tab PO DAILY 06/26/21 12/03/23 Unknown History Compression socks, small 01/18/22 12/03/23 Unknown History acetaminophen 650 mg 650 mg PO Q12H PRN Pain 11/22/23 12/03/23 Unknown History tablet,extended release (Tylenol 8 Hour) ibuprofen 400 mg tablet 400 mg PO Q8H PRN Pain 11/22/23 12/03/23 Unknown History Exam Height,Weight and Vital Signs: Height 5 ft 11 in Weight 69.853 kg Last Vital Signs Temp 96.9 F 12/11/23 09:27 Pulse 91 12/11/23 09:27 Resp 18 12/11/23 09:27 BP 136/71 12/11/23 09:27 Pulse Ox 97 12/11/23 09:27 O2 Del Method Room Air 12/11/23 09:27 Airway Mallampati Class: II TM Dist: >3cm Neck ROM: Full Loose/Missing/Broken Teeth: No (Caps intact. Denies broken, loose, missing teeth) Heart: RRR Lungs: CTAB Assessment and Plan Assessment Anesthesia Assessment: Anesthesia Plan Discussed and Chart Reviewed Final Anesthetic Review Family History of Problems with Anesthesia: No History of Problems with Anesthesia: No NPO: Yes ASA Class: II Final Preanesthetic Review: No Changes in Pt Med Stat, Meds/Allgs Chart Reviewed, Consent Obtained/Reviewed and Anes Risks/Benef Reviewed Patient Risk: Intermediate Procedure Risk: Low Assessment/Block/Sedation in SS: Assess/Block/Sedation-SS Anesthetic Plan Anesthetic Plan: GA Disposition: Standard PACU
--- NOTE | 2023-12-11 11:00 | MHC.SHP ---
Pre-Procedural Eval Section A - 24 Hr Update-Section A only Date of Service: 12/11/23 The patient is an INPATIENT: No Changes since office visit: Yes Patient answered all questions; No Cold of Flu in the past 2 weeks, No New Medical Problems and No Changes in Medication The patient has been examined within 24 hours of the surgical procedure. The History & Physical has been completed within 30 days and I have reviewed it.: Yes Section B - Complete if H&P > 30 days Chief Complaint: Unilateral inguinal hernia, without obstruction Allergies: Allergies Allergy/AdvReac Type Severity Reaction Status Date / Time prednisone Allergy Intermediate Gastrointestinal Verified 11/15/23 12:37 Upset warfarin [From COUMADIN] Allergy Intermediate dizziness,GI Verified 11/15/23 12:37 upset amoxicillin AdvReac Intermediate Diarrhea Verified 11/15/23 12:37 Plan Diagnosis/Plan: Unchanged I have reviewed the history and physical and performed a pertinent physical examination on my patient. No changes have occurred unless specified. Time Spent With Patient Time: Total time managing care of this patient today ____ minutes.
--- NOTE | 2023-12-11 12:11 | P.OP_ITS ---
Operative Note Operative Note Date of Service: 12/11/23 Narrative: Preoperative diagnosis: Right inguinal hernia, reducible; sebaceous cyst right flank Postoperative diagnosis: Same Procedure: Repair of right inguinal hernia with mesh, reducible; excision of sebaceous cyst right flank Surgeon: Dav Fernández MD Outsole Handler: Madai Rosario PA-C Anesthesia: General LMA Indications for procedure: 58-year-old male patient presenting with a palpable hernia in the right groin which is increasing in size and causing some mild discomfort. He is requested repair of this right inguinal hernia. He also has a persistent/recurrent sebaceous cyst of the right flank which he would like excised. Operative findings: Indirect right inguinal hernia, sebaceous cyst 2 cm diameter. Specimen: Hernia sac right side, sebaceous cyst right flank Estimated blood loss: 5 mL Complications: None Procedure details: Patient was brought to the OR and placed in a supine position. After administering general anesthesia the patient's abdomen was prepped with ChloraPrep and draped in a sterile fashion. A surgical time-out was called the consent confirmed. Patient received preoperative antibiotics and Venodyne boots were in place. Local anesthesia consisting of 0.5% Sensorcaine was infiltrated over the right inguinal ligament. Incision was then made with a scalpel over the inguinal ligament and carried out through subcutaneous tissue, past Juan Antonio's fashion up to the external oblique aponeurosis. This was then incised with a scalpel widened with the Metzenbaum scissors. The spermatic cord was then dissected free from the surrounding inguinal canal and retracted using a Ashley drain. The floor of the inguinal canal was found to be intact. Fibers of the cremaster muscle were then and a indirect sac identified within the cord. This was dissected free up to the internal ring. The sac was then entered and the contents reduced. The sac was then ligated with a 0 Polysorb suture at its base and excised. This was sent as a specimen. Fibers of the internal oblique and transversalis aponeurosis were then incised the floor of the inguinal canal. A preperitoneal space was entered and this was widened with an open Ray-Farheen sponge. A large PHS mesh was then obtained. The circular underlay was then deployed within the preperitoneal space. The overlay was secured to the pubic tubercle, conjoined tendon and shelving edge of the inguinal ligament using a 0 Polysorb suture. A slit was made in the mesh in the mesh wrapped around the spermatic cord at the internal ring. This was then secured at the internal ring to the shelving edge of the inguinal ligament using a 0 Polysorb suture. The remainder of the mesh was then placed below the external oblique aponeurosis. The wounds were then irrigated with saline solution and suctioned dry. External oblique aponeurosis was then closed using a running 2-0 Polysorb suture. 6 mL of Zenrelef was then instilled below the external oblique aponeurosis. Juan Antonio's fascia and dermis were then reapproximated using interrupted 3-0 Polysorb sutures. Skin was closed using a running subcuticular 4-0 Polysorb suture. Steri-Strips, 2 x 2 gauze and Tegaderm were then applied. Patient was then rotated to a sloppy lateral position to expose the sebaceous cyst in the right flank. The skin was prepped with ChloraPrep and draped in a sterile fashion. Local anesthesia was then infiltrated around the sebaceous cyst. An elliptical incision was then created with a 15 blade and carried out through subcutaneous tissue and around the cyst wall. Hemostasis was assured using electrocautery. The specimen was passed off the table and sent to pathology for further examination. Dermis was then reapproximated using interrupted 3-0 Polysorb suture. Skin was closed using 4-0 nylon sutures. Sterile dressings consisting of 2 x 2 gauze and Tegaderm were then applied. The patient tolerated the procedure well. Sponge, instrument, and needle counts reported as correct. The patient was transferred to PACU in stable condition.
== END 2023-12-11 15:38 | disposition home or self-care (01) ==
PROVIDERS: PCP Internal Medicine; Visit Provider Surgery
PROC: (CPT 49505; principal; 2023-12-11 11:00)
PROC: (CPT 49505; 2023-12-11 11:00)
DX: K40.90 Unilateral inguinal hernia, without obstruction or gangrene, not specified as recurrent (principal); L72.0 Epidermal cyst; Z86.711 Personal history of pulmonary embolism; Z86.718 Personal history of other venous thrombosis and embolism; Z79.01 Long term (current) use of anticoagulants
CPT/HCPCS: 49505; 11400; 88302; 88304; 88341; 88342; C1781; C9088; J0131; J0690; J1100; J1885; J2405; J2704; J2795; J3010

== ENCOUNTER → 2023-12-11 08:44 | Outpatient (BNV) | payer OTHER, SELFPAY | PROVIDERS: PCP Internal Medicine; Visit Provider Surgery | DX: K40.90 Unilateral inguinal hernia, without obstruction or gangrene, not specified as recurrent (principal); L72.0 Epidermal cyst | CPT/HCPCS: 11403; 49505 ==

== ENCOUNTER 2023-12-20 09:46 | Outpatient (AMB) | payer OTHER, SELFPAY ==
--- NOTE | 2023-12-20 09:47 | MHC.OFFVIS ---
Vital Signs 12/20/23 09:54 Weight 156 lb Intake Visit Reasons: S/P RIH w/mesh Intake Note: Patient is seen in office for post op assessment post right inguinal hernia repair & excision of sebaceous cyst of the right flank. Pt c/o: reports no complaints at this time. 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 He tolerated both procedures well but does report some soreness in the incision of the right groin. He notes some thickening of the scar as well. He had swelling of the testicle which has subsequently resolved. He denies fever, chills nausea or vomiting. He is moving his bowels but does report some constipation. He is not taking the Colace. [facility] Medical History Nonalcoholic fatty liver disease Vasovagal reaction Pulmonary embolism DVT (deep venous thrombosis) Hx of varicose veins of lower extremity Vitiligo Surgical History Hx of right inguinal hernia repair (12/11/23) H/O removal of cyst (12/11/23) History of surgery Hx of nasal polypectomy Hx of varicose vein ligation and stripping Family History Father Poor circulation Mother Cyst COPD (chronic obstructive pulmonary disease) Acid reflux disease Sister Cyst Brother Bone cancer Paternal Aunt Lupus Social History Household Members: Family Household Members Other:: mother Housing: House Are you a primary primary care sales representative to a significant other at home: No Do you presently have visiting nurse or other home services: No Alcohol intake: current Alcohol intake frequency: holidays/special occasions only Comment: using cane to hernia pain Patient Tobacco Use Status: Never used Tobacco service: No Current occupational status: employed Physical Exam Const General: no acute distress Nutritional Appearance: well nourished Orientation/consciousness: patient oriented x3 Resp Effort & Inspection: normal respiratory effort, no cough and no respiratory distress GI Other: Right flank incision is clean, dry, and intact. Sutures removed and Steri-Strips applied. Right groin wound is clean, dry, and intact without redness or discharge. No hernia noted with Valsalva maneuvers. Neuro General: patient oriented x3 Assessment & Plan Assessment & Plan (1) Reducible right inguinal hernia: Code(s): K40.90 - Unilateral inguinal hernia, without obstruction or gangrene, not specified as recurrent Category: Medical (2) Epidermal cyst: Code(s): L72.0 - Epidermal cyst Category: Medical Plan Patient returns 1 week following repair of right inguinal hernia with mesh. His wounds are clean, dry and intact. He should continue to avoid lifting greater than 10 lb for the next month. He will return in 1 month for wound examination. He should stop the narcotic as soon as possible which will improve his constipation. He was also encouraged to try Colace for his bowels. Coding Level of Care Code Global (95512) Diagnoses Reducible right inguinal hernia K40.90 Epidermal cyst L72.0
== END 2023-12-20 10:15 | disposition home or self-care (01) ==
PROVIDERS: PCP Internal Medicine; Visit Provider Surgery
DX: K40.90 Unilateral inguinal hernia, without obstruction or gangrene, not specified as recurrent (principal); L72.0 Epidermal cyst
CPT/HCPCS: 99024

== ENCOUNTER → 2023-12-20 09:46 | Outpatient (BNVA) | payer OTHER, SELFPAY | PROVIDERS: PCP Internal Medicine; Visit Provider Surgery | DX: K40.90 Unilateral inguinal hernia, without obstruction or gangrene, not specified as recurrent (principal); L72.0 Epidermal cyst | CPT/HCPCS: 99212 ==

== ENCOUNTER 2024-01-21 11:25 | Outpatient (AMB) | payer OTHER, SELFPAY ==
--- NOTE | 2024-01-21 11:27 | A.OFFVIS_ITS ---
Vital Signs 3 01/21/24 11:32 Weight 156 lb BP 129/73 Blood Pressure Location Rt brachial Position Sitting Pulse 62 Intake Visit Reasons: 1 mth follow up S/P RIH w/mesh Intake Note: This patient presents for a one month follow-up status post right inguinal hernia repair with mesh. Patient c/o; reports It feels like a stick , reports ? 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 Accompanied by: Self / Same As Patient Allergies prednisone Allergy (Intermediate, Verified 01/21/24 11:34) Gastrointestinal Upset warfarin [From COUMADIN] Allergy (Intermediate, Verified 01/21/24 11:34) dizziness,GI upset amoxicillin Adverse Reaction (Intermediate, Verified 01/21/24 11:34) Diarrhea Medication List - Last Reconciled 01/21/24 by Dav Fernández MD acetaminophen ER (Tylenol 8 Hour) 650 mg PO Q12H PRN calcium phos,dibas-vitamin D3 77-400 mg-unit 400 tabs PO DAILY Compression socks, small As directed ibuprofen 400 mg PO Q8H PRN multivitamin 1 tab PO DAILY oxycodone 5 mg PO Q6H PRN HPI Comments Details: 58-year-old male patient returning 1 month following repair of right inguinal hernia with mesh and excision of sebaceous cyst on 12/11/2023. He tolerated the procedure well but does feel a healing ridge below the incision. He denies any bleeding or discharge from the incision. He does note a small lesion in the left antecubital fossa which is mobile within the subcutaneous tissue but causing him some discomfort. He is inquiring about excision of this lesion. [facility] Medical History Nonalcoholic fatty liver disease Vasovagal reaction Pulmonary embolism DVT (deep venous thrombosis) Hx of varicose veins of lower extremity Vitiligo Surgical History Hx of right inguinal hernia repair (12/11/23) H/O removal of cyst (12/11/23) History of surgery Hx of nasal polypectomy Hx of varicose vein ligation and stripping Family History Father Poor circulation Mother Cyst COPD (chronic obstructive pulmonary disease) Acid reflux disease Sister Cyst Brother Bone cancer Paternal Aunt Lupus Social History Household Members: Family Household Members Other:: mother Housing: House Are you a primary professional healthcare representative to a significant other at home: No Do you presently have visiting nurse or other home services: No Alcohol intake: current Alcohol intake frequency: holidays/special occasions only Comment: using cane to hernia pain Patient Tobacco Use Status: Never used Tobacco service: No Current occupational status: employed Physical Exam Vital Signs: Last Vital Signs Pulse 62 01/21/24 11:32 BP 129/73 01/21/24 11:32 Const General: no acute distress Nutritional Appearance: well nourished Orientation/consciousness: patient oriented x3 Resp Effort & Inspection: normal respiratory effort, no cough and no respiratory distress GI Other: Right flank incision is clean, dry, and intact. Sutures removed and Steri- Strips applied. Right groin wound is clean, dry, and intact without redness or discharge. No hernia noted with Valsalva maneuvers. Neuro General: patient oriented x3 Extrem Other: Soft tissue mass within the subcutaneous tissue just below the antecubital fossa of the left arm measuring approximately 1 cm in diameter. No overlying skin changes are appreciated. Findings are suggestive of a lipoma verses a thrombosed varix. Elbow/forearm/wrist images: 2 1. Site of palpable subcutaneous lesion Assessment & Plan Assessment & Plan (1) Lipoma: Code(s): D17.9 - Benign lipomatous neoplasm, unspecified Category: Medical Qualifiers: Lipoma location: upper extremity Laterality: left Qualified Code(s): D 17.22 - Benign lipomatous neoplasm of skin and subcutaneous tissue of left arm Plan Patient returns following repair of a right inguinal hernia with mesh proximally 1 month ago. His wounds are now well healed and there is no evidence of hernia recurrence. May resume normal activity without restrictions. He also complains of a new palpable subcutaneous lesion in the left arm as noted above. He is considering excision of this lesion. I reviewed the procedure, risks and alternatives and recommended an excision under local anesthesia. After discussion of the procedure, risks and alternatives, he consents to the surgery. Coding Level of Care Code Global (53453) Diagnoses Lipoma of left upper extremity D17.22 Lipoma location: upper extremity Laterality: left
[2024-01-21 11:32] VITALS: BP 129/73; PULSE 62
== END 2024-01-21 11:57 | disposition home or self-care (01) ==
PROVIDERS: PCP Internal Medicine; Visit Provider Surgery
DX: D17.22 Benign lipomatous neoplasm of skin and subcutaneous tissue of left arm (principal)
CPT/HCPCS: 99024

== ENCOUNTER → 2024-01-21 11:25 | Outpatient (BNVA) | payer OTHER, SELFPAY | PROVIDERS: PCP Internal Medicine; Visit Provider Surgery | DX: Z09 Encounter for follow-up examination after completed treatment for conditions other than malignant neoplasm (principal); Z87.19 Personal history of other diseases of the digestive system; D17.22 Benign lipomatous neoplasm of skin and subcutaneous tissue of left arm | CPT/HCPCS: 99212 ==

== ENCOUNTER 2024-02-11 12:45 | Outpatient (REF) | payer OTHER, SELFPAY ==
[2024-02-11 12:48] VITALS: BP 129/69; PULSE 68; RESP 18; TEMP 36.6; O2SAT 98; BMI 22.0
--- NOTE | 2024-02-11 13:21 | P.OP_ITS ---
Operative Note Operative Note Date of Service: 02/11/24 Narrative: Preoperative diagnosis: Lipoma left arm antecubital fossa Postoperative diagnosis: Same Procedure: Excision lipoma left antecubital fossa Surgeon: Dav Fernández MD Pharmacy Benefits Coordinator: None Anesthesia: Local Indications for procedure: 58-year-old male patient with a palpable lump in the antecubital fossa measuring approximately 3 cm in diameter. Operative findings: 3 cm lipoma left antecubital fossa Specimen: Lipoma left antecubital fossa Estimated blood loss: Less than 1 mL Complications: None Procedure details: Patient was brought to the minor surgery suite placed in a supine position. The site of surgery was confirmed by the patient in the left antecubital fossa. After assuring informed consent the patient's left arm was prepped with Betadine and draped in a sterile fashion. Local anesthesia was then infiltrated over the palpable lipoma. A 3 cm incision was then made directly over the lipoma. This was then carried out through subcutaneous tissue. The lipoma was then identified and grasped with a hemostat. This was then dissected free using a Metzenbaum scissors from the surrounding subcutaneous tissue. The lipoma was then passed off the table and sent to pathology for further examination. Light pressure was held to maintain hemostasis. Skin was then closed using interrupted 4-0 Polysorb suture in the dermis. Steri-Strips were then applied. Sterile dressings consisting of 2 x 2 gauze and Tegaderm were then applied. The patient tolerated the procedure well. He was discharged to home in stable condition.
== END 2024-02-11 12:46 | disposition home or self-care (01) ==
LOC: HO.MS 12:45
PROVIDERS: PCP Internal Medicine; Visit Provider Surgery
PROC: (CPT 11403; principal; 2024-02-11 13:00)
DX: D17.22 Benign lipomatous neoplasm of skin and subcutaneous tissue of left arm (principal)
CPT/HCPCS: 11403; 88304

== ENCOUNTER → 2024-02-11 12:45 | Outpatient (BNV) | payer OTHER, SELFPAY | PROVIDERS: PCP Internal Medicine; Visit Provider Surgery | DX: D17.22 Benign lipomatous neoplasm of skin and subcutaneous tissue of left arm (principal) | CPT/HCPCS: 24076 ==

== ENCOUNTER 2024-02-20 10:53 | Outpatient (AMB) | payer OTHER, SELFPAY ==
--- NOTE | 2024-02-20 11:01 | A.OFFVIS_ITS ---
Vital Signs 02/20/24 11:04 Height 5 ft 11 in Weight 159 lb BMI 22.2 BP 123/71 Blood Pressure Location Lt brachial Position Sitting Pulse 61 Intake Visit Reasons: S/P excision lipoma Lt antecubital fossa Intake Note: Patient is seen in office for post op assessment post excision lipoma Lt antecubital fossa. 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 He reports feeling a stitch at the edge of the incision. He denies any bleeding or discharge. 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 [facility] Medical History Nonalcoholic fatty liver disease Vasovagal reaction Pulmonary embolism DVT (deep venous thrombosis) Hx of varicose veins of lower extremity Vitiligo Surgical History S/P excision of lipoma (02/11/24) Hx of right inguinal hernia repair (12/11/23) H/O removal of cyst (12/11/23) History of surgery Hx of nasal polypectomy Hx of varicose vein ligation and stripping Family History Father Poor circulation Mother Cyst COPD (chronic obstructive pulmonary disease) Acid reflux disease Sister Cyst Brother Bone cancer Paternal Aunt Lupus Social History Household Members: Family Household Members Other:: mother Housing: House Are you a primary health care coordinator to a significant other at home: No Do you presently have visiting nurse or other home services: No Alcohol intake: current Alcohol intake frequency: holidays/special occasions only Comment: using cane to hernia pain Patient Tobacco Use Status: Never used Tobacco service: No Current occupational status: employed Physical Exam Vital Signs: Last Vital Signs Pulse 61 02/20/24 11:04 BP 123/71 02/20/24 11:04 BMI result Body Mass Index 22.2 Const General: comfortable Nutritional Appearance: well nourished Orientation/consciousness: patient oriented x3 Resp Effort & Inspection: normal respiratory effort Neuro General: patient oriented x3 Extrem Other: Left antecubital fossa with a well-healed incision in the forearm. A small scab is noted at the distal portion of the incision which may be results of the underlying Polysorb suture. There is no evidence of hematoma or seroma. Assessment & Plan Assessment & Plan (1) Lipoma: Code(s): D17.9 - Benign lipomatous neoplasm, unspecified Category: Medical Qualifiers: Lipoma location: upper extremity Laterality: left Qualified Code(s): D17.22 - Benign lipomatous neoplasm of skin and subcutaneous tissue of left arm Plan Patient returns 1 week following excision of an angiolipoma of the right antecubital fossa. He tolerated the procedure well and his wounds are healing nicely without evidence of infection, hematoma or seroma. He should follow up as needed. Coding Level of Care Code Global (95037) Diagnoses Lipoma of left upper extremity D17.22 Lipoma location: upper extremity Laterality: left
[2024-02-20 11:04] VITALS: BP 123/71; PULSE 61; BMI 22.2
== END 2024-02-20 11:05 | disposition home or self-care (01) ==
PROVIDERS: PCP Internal Medicine; Visit Provider Surgery
DX: D17.22 Benign lipomatous neoplasm of skin and subcutaneous tissue of left arm (principal)
CPT/HCPCS: 99024

== ENCOUNTER → 2024-02-20 10:53 | Outpatient (BNVA) | payer OTHER, SELFPAY | PROVIDERS: PCP Internal Medicine; Visit Provider Surgery | DX: Z48.3 Aftercare following surgery for neoplasm (principal); Z98.890 Other specified postprocedural states | CPT/HCPCS: 99212 ==

== ENCOUNTER 2024-06-27 08:00 | Outpatient (REF) | payer OTHER, SELFPAY ==
[2024-06-27 08:14] LABS: MANUAL DIFF FLAG NO
[2024-06-27 08:29] LABS: Basophils Absolute Auto 0.1 X10*3/uL (0.0-0.2); Eosinophils Absolute Auto 0.3 X10*3/uL (0.0-0.4); Eosinophils Percent Auto 5.6 % (0-4); Hematocrit 46.7 % (42.0-52.0); Hemoglobin 15.6 g/dl (14.0-18.0); Imm Gran Abs Auto 0.02 X10*3/uL (0.00-0.03); Imm Gran Pct Auto 0.4 % (0.0-0.4); Mean Corpuscular HGB Conc 33.4 g/dl (31.0-36.0); Mean Corpuscular Hemoglobin 31.7 pg (27.0-33.0); Mean Corpuscular Volume 94.9 fL (80.0-98.0); Mean Platelet Volume 13.8 fL (9.4-12.4); Monocytes Absolute Auto 0.5 X10*3/uL (0.1-1.2); Monocytes Percent Auto 8.8 % (2-11); Neutrophils Absolute Auto 3.4 x10*3/uL (2.0-8.3); Neutrophils Percent Auto 64.2 % (45-73); Platelet Count 128 X10*3/uL (160-400); Red Blood Count 4.92 X10*6/uL (4.60-5.80); Red Cell Distribution Width 12.4 % (11.0-16.0); White Blood Count 5.2 X10*3/uL (4.8-10.8)
[2024-06-27 09:12] LABS: Alanine Aminotransferase 29 U/L (0-40); Albumin Level 4.4 g/dL (3.5-5.0); Alkaline Phosphatase 89 U/L (39-117); Anion Gap 10 (12-20); Aspartate Amino Transferase 32 U/L (5-37); Bilirubin Total 0.7 mg/dL (0.0-1.0); Blood Urea Nitrogen 18 mg/dL (9-16); Carbon Dioxide 29 mmol/L (22-29); Chloride 108 mmol/L (96-108); Cholesterol 196 mg/dL (<200); Estimated Glomerular Filt Rate > 60; Glucose Fasting 102 mg/dL (60-99); HDL Cholesterol 69 mg/dL (>40); LDL Cholesterol Calculated 120 mg/dL (<100); Potassium 4.1 mmol/L (3.3-5.1); Sodium 143 mmol/L (135-145); Triglycerides 39 mg/dL (<150)
[2024-06-27 09:26] LABS: Vitamin B12 670 pg/mL (200-900)
[2024-06-27 09:30] LABS: Vitamin D 25-OH Total 30.3 ng/mL (>30)
== END 2024-06-27 08:01 | disposition home or self-care (01) ==
LOC: HO.LAB 08:00
PROVIDERS: PCP Internal Medicine; Visit Provider Internal Medicine
DX: R21 Rash and other nonspecific skin eruption (principal); K76.0 Fatty (change of) liver, not elsewhere classified
CPT/HCPCS: 36415; 80053; 80061; 82306; 82607; 85025

== ENCOUNTER 2024-07-07 11:34 | Outpatient (AMB) | payer OTHER, SELFPAY ==
--- NOTE | 2024-07-07 11:36 | MHC.OFFVIS ---
Vital Signs 07/07/24 11:45 Height 5 ft 11 in Weight 162 lb 6 oz BMI 22.6 BP 121/71 Blood Pressure Location Lt brachial Position Sitting Pulse 63 Intake Visit Reasons: check hernia site Intake Note: Patient is seen in office for concerns regarding hernia site, hernia repair on 12/11/23. 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 Recently he has noted an irritation in the area of the incision especially after walking several laps or doing more strenuous activity. He reports the pain as a 0.5-1 out of 10, not sharp and nonradiating. Is generally felt above the incision. He denies any palpable mass or any additional abdominal symptoms. The symptoms seemed to improve with rest. He read that irritation could be caused by the mesh in his concerned about problems with his mesh. [facility] Medical History Nonalcoholic fatty liver disease Vasovagal reaction Pulmonary embolism DVT (deep venous thrombosis) Hx of varicose veins of lower extremity Vitiligo Surgical History S/P excision of lipoma (02/11/24) Hx of right inguinal hernia repair (12/11/23) H/O removal of cyst (12/11/23) History of surgery Hx of nasal polypectomy Hx of varicose vein ligation and stripping Family History Father Poor circulation Mother Cyst COPD (chronic obstructive pulmonary disease) Acid reflux disease Sister Cyst Brother Bone cancer Paternal Aunt Lupus Social History Household Members: Family Household Members Other:: mother Housing: House Are you a primary healthcare business analyst to a significant other at home: No Do you presently have visiting nurse or other home services: No Alcohol intake: current Alcohol intake frequency: holidays/special occasions only Comment: using cane to hernia pain Patient Tobacco Use Status: Never used Tobacco service: No Current occupational status: employed Review of Systems Const All systems reviewed & are unremarkable except as noted in HPI and below Physical Exam Vital Signs: Last Vital Signs Pulse 63 07/07/24 11:45 BP 121/71 07/07/24 11:45 BMI result Body Mass Index 22.6 Const General: no acute distress Nutritional Appearance: well nourished Orientation/consciousness: patient oriented x3 Limitations: no limitations Resp Effort & Inspection: normal respiratory effort GI Other: Soft and nondistended, nontender. Well-healed incision in the right groin with no hernia noted with Valsalva maneuvers. No redness, no point tenderness, normal healing ridge. Abdomen image: 1. Incision right groin Neuro General: patient oriented x3 Assessment & Plan Assessment & Plan (1) Right inguinal hernia: Code(s): K40.90 - Unilateral inguinal hernia, without obstruction or gangrene, not specified as recurrent Category: Medical Plan 59-year-old male patient status post repair of a right inguinal hernia with mesh. He reports a irritation above the incision was concerned about problems with the mesh. Examination today revealed no evidence of hernia recurrence or mesh infection. There is no evidence of nerve entrapment in his symptoms appear mainly muscular in origin. I recommended he continue exercise and stretching. Warm compresses and ibuprofen are recommended for increased pain. He should follow up as needed Coding Level of Care Code Est Pt Level 3 (40628) Diagnoses Right inguinal hernia K40.90
[2024-07-07 11:45] VITALS: BP 121/71; PULSE 63; BMI 22.6
== END 2024-07-07 11:53 | disposition home or self-care (01) ==
PROVIDERS: PCP Internal Medicine; Visit Provider Surgery
DX: K40.90 Unilateral inguinal hernia, without obstruction or gangrene, not specified as recurrent (principal)
CPT/HCPCS: 99213

== ENCOUNTER → 2024-07-07 11:34 | Outpatient (BNVA) | payer OTHER, SELFPAY | PROVIDERS: PCP Internal Medicine; Visit Provider Surgery | DX: K40.90 Unilateral inguinal hernia, without obstruction or gangrene, not specified as recurrent (principal) | CPT/HCPCS: 99212 ==

== ENCOUNTER 2024-07-21 09:05 | Outpatient (AMB) | payer OTHER, SELFPAY ==
--- NOTE | 2024-07-21 09:06 | MHC.OFFVIS ---
Intake Visit Reasons: Left leg pain s/p 07/30/22 micro Intake Note: Patient states he saw Dr Valdez who believes he still needs work done on his left leg. Patient had a micro on his left leg. Vein still bothering him. His left leg falls asleep. Accompanied by: Self / Same As Patient Allergies prednisone Allergy (Intermediate, Verified 07/21/24 09:09) Gastrointestinal Upset warfarin [From COUMADIN] Allergy (Intermediate, Verified 07/21/24 09:09) dizziness,GI upset amoxicillin Adverse Reaction (Intermediate, Verified 07/21/24 09:09) Diarrhea HPI HPI Left leg pain s/p 07/30/22 micro: Details: Very pleasant 59-year-old gentleman presents for follow-up regarding venous disease. He has had prior venous treatment by us for significant varicosities. He has developed a new large varicosity in his left medial thigh. It has been a source of pain and discomfort for him. He uses compression stockings that have provided him minimal relief. He now presents for follow-up. [facility] Medical History Nonalcoholic fatty liver disease Vasovagal reaction Pulmonary embolism DVT (deep venous thrombosis) Hx of varicose veins of lower extremity Vitiligo Surgical History S/P excision of lipoma (02/11/24) Hx of right inguinal hernia repair (12/11/23) H/O removal of cyst (12/11/23) History of surgery Hx of nasal polypectomy Hx of varicose vein ligation and stripping Family History Father Poor circulation Mother Cyst COPD (chronic obstructive pulmonary disease) Acid reflux disease Sister Cyst Brother Bone cancer Paternal Aunt Lupus Social History Household Members: Family Household Members Other:: mother Housing: House Are you a primary ambulatory care coordinator to a significant other at home: No Do you presently have visiting nurse or other home services: No Alcohol intake: current Alcohol intake frequency: holidays/special occasions only Comment: using cane to hernia pain Patient Tobacco Use Status: Never used Tobacco service: No Current occupational status: employed Review of Systems Const Reports as per HPI ENT Reports no additional complaints Card Denies chest pain, Denies chest pain at rest and Denies chest pain with activity Resp Denies chest congestion and Denies cough GI Reports no additional complaints Musc Details: pain over varicosities, aching of lower extremities, swelling, cramping, heaviness and tiredness, itching Denies abnormal gait Skin/Breast Reports pruritus and Denies wounds Neuro Reports no additional complaints and Denies abnormal gait Psych Denies no additional complaints Physical Exam Const General: cooperative, healthy appearing and comfortable Orientation/consciousness: oriented to person, oriented to place and oriented to time Neck Carotids: no bruits Chest Chest palpation & inspection: normal inspection of the chest and normal palpation of entire chest wall Resp Effort & Inspection: normal respiratory effort and able to speak in complete sentences Cardio Rate: regular rate Heart sounds: S1 normal heart sound present and S2 normal heart sound present Peripheral pulses: Peripheral pulses 2+ throughout GI Inspection: Yes normal to inspection Skin Other: +2 edema, large rope-like varicosities greater than 4 mm left medial thigh CEAP Classification C4 - skin color changes Ep - Etiology Primary As - superficial veins P - reflux General skin exam: dry skin Neuro General: oriented to person, oriented to place and oriented to time Extrem Right lower extremity: full ROM, normal capillary refill and edema Left lower extremity: full ROM, normal capillary refill and edema Psych Mental Status: mental status grossly normal Assessment & Plan Assessment & Plan (1) Varicose veins of left lower extremity with inflammation: Comment: 01/05/2022 - left great saphenous vein radiofrequency ablation 03/16/2022 - left small saphenous vein radiofrequency ablation 07/30/2022 - left leg microphlebectomy Code(s): I83.12 - Varicose veins of left lower extremity with inflammation Category: Medical Plan: This patient has varicose veins with inflammation. They continue to be a source of discomfort for the patient. The patient has tried conservative treatment with compression, leg elevation and exercise program for over 3 months time. They have been compliant with all treatment. This has provided minimal relief for the patient. I do not anticipate this course of treatment will alter the underlying etiology. The patient has been scheduled for lower extremity venous treatment inclusive of --- left leg microphlebectomy. Risks, benefits, and complications of this procedure has been discussed in detail with the patient including but not limited to bleeding, infection, and the development of a DVT. The patient has demonstrated a clear understanding and has consented. We will schedule the patient as soon as possible. Thank you for allowing us to participate in this patient's care. If there are any questions or concerns please do not hesitate to contact us. Coding Level of Care Code Est Pt Level 4 (98081) Diagnoses Varicose veins of left lower extremity with inflammation I83.12
== END 2024-07-21 09:54 | disposition home or self-care (01) ==
PROVIDERS: PCP Internal Medicine; Visit Provider Surgery Vascular Surgery
DX: I83.12 Varicose veins of left lower extremity with inflammation (principal)
CPT/HCPCS: 99214

== ENCOUNTER → 2024-07-21 09:05 | Outpatient (BNVA) | payer OTHER, SELFPAY | PROVIDERS: PCP Internal Medicine; Visit Provider Surgery Vascular Surgery | DX: I83.12 Varicose veins of left lower extremity with inflammation (principal) | CPT/HCPCS: 99212 ==

== ENCOUNTER 2024-09-01 11:32 | Day surgery (SDC) | payer OTHER, SELFPAY ==
--- NOTE | 2024-08-28 12:14 | P.CONAN_ITS ---
Documented by User: Prema Dow NP 08/28/24 12:18 HPI - Anesthesia Eval Consult details Narrative: 59yo M for MicroPhlebectomy Hx vasovagal postop Hx PE/DVT - no anticoags now s/p hernia repair 01/2024 with GA-LMA 4 PMFSH Active Problems Active Problems: All Active Problems Lipoma (Acute) Epidermal cyst (Acute) Reducible right inguinal hernia (Acute) Varicose veins of right lower extremity with inflammation (Acute) Varicose veins of left lower extremity with inflammation (Acute) Pulmonary embolism (Acute) Blood clot in vein (Acute) Past Medical History Medical History Nonalcoholic fatty liver disease Vasovagal reaction Pulmonary embolism DVT (deep venous thrombosis) Hx of varicose veins of lower extremity Vitiligo Family History Family History Father Poor circulation Mother Cyst COPD (chronic obstructive pulmonary disease) Acid reflux disease Sister Cyst Brother Bone cancer Paternal Aunt Lupus Family history of problems with anesthesia: No Surgical History Surgical History S/P excision of lipoma (02/11/24) Hx of right inguinal hernia repair (12/11/23) H/O removal of cyst (12/11/23) History of surgery Hx of nasal polypectomy Hx of varicose vein ligation and stripping History of Problems with Anesthesia: No Social History Social History Household Members: Family Household Members Other:: mother Housing: House Are you a primary assisted living care manager to a significant other at home: No Do you presently have visiting nurse or other home services: No Alcohol intake: current Alcohol intake frequency: does not drink Comment: using cane to hernia pain Patient Tobacco Use Status: Never used Tobacco Use of substances other than those prescribed or required for medical reasons: No Are you DNR?: No Advance Directives: No Advance Directives Information Provided: Yes service: No Current occupational status: employed Meds Allergies Allergy/AdvReac Type Severity Reaction Status Date / Time prednisone Allergy Intermediate Gastrointestinal Verified 07/21/24 09:09 Upset warfarin [From COUMADIN] Allergy Intermediate dizziness,GI Verified 07/21/24 09:09 upset amoxicillin AdvReac Intermediate Diarrhea Verified 07/21/24 09:09 Home Medications ?Medication ?Instructions ?Recorded ?Confirmed ?Last Taken ?Type Compression socks, small 01/18/22 01/21/24 Unknown History Exam Pertinent Lab Results Pertinent Lab Results: Laboratory Tests 06/27/24 08:13 WBC 5.2 Hgb 15.6 Hct 46.7 Plt Count 128 L Sodium 143 Potassium 4.1 Chloride 108 Carbon Dioxide 29 BUN 18 H Creatinine 0.75 Assessment and Plan Assessment Anesthesia Assessment: Chart Reviewed Final Anesthetic Review Family History of Problems with Anesthesia: No History of Problems with Anesthesia: No Documented by User: Ruba Dupont MD 09/01/24 12:58 [facility] Past Medical History Medical History Nonalcoholic fatty liver disease Vasovagal reaction Pulmonary embolism DVT (deep venous thrombosis) Hx of varicose veins of lower extremity Vitiligo Family History Family History Father Poor circulation Mother Cyst COPD (chronic obstructive pulmonary disease) Acid reflux disease Sister Cyst Brother Bone cancer Paternal Aunt Lupus Surgical History Surgical History S/P excision of lipoma (02/11/24) Hx of right inguinal hernia repair (12/11/23) H/O removal of cyst (12/11/23) History of surgery Hx of nasal polypectomy Hx of varicose vein ligation and stripping Social History Social History Household Members: Family Household Members Other:: mother Housing: House Are you a primary assisted living care manager to a significant other at home: No Do you presently have visiting nurse or other home services: No Alcohol intake: current Alcohol intake frequency: does not drink Comment: using cane to hernia pain Patient Tobacco Use Status: Never used Tobacco Use of substances other than those prescribed or required for medical reasons: No Are you DNR?: No Advance Directives: No Advance Directives Information Provided: Yes service: No Current occupational status: employed Meds Allergies Allergy/AdvReac Type Severity Reaction Status Date / Time prednisone Allergy Intermediate Gastrointestinal Verified 07/21/24 09:09 Upset warfarin [From COUMADIN] Allergy Intermediate dizziness,GI Verified 07/21/24 09:09 upset amoxicillin AdvReac Intermediate Diarrhea Verified 07/21/24 09:09 Home Medications ?Medication ?Instructions ?Recorded ?Confirmed ?Last Taken ?Type Compression socks, small 01/18/22 01/21/24 Unknown History Exam Airway Mallampati Class: II TM Dist: >3cm Neck ROM: Full Heart: rrr Lungs: cta Assessment and Plan Assessment Anesthesia Assessment: Anesthesia Plan Discussed Final Anesthetic Review NPO: Yes ASA Class: III Final Preanesthetic Review: No Changes in Pt Med Stat, Meds/Allgs Chart Reviewed, Consent Obtained/Reviewed and Anes Risks/Benef Reviewed Patient Risk: Intermediate Procedure Risk: Low Anesthetic Plan Anesthetic Plan: GA Disposition: Standard PACU
--- NOTE | 2024-09-01 12:15 | MHC.SHP ---
Pre-Procedural Eval Section A - 24 Hr Update-Section A only Date of Service: 09/01/24 The patient is an INPATIENT: No Changes since office visit: Yes Patient answered all questions The patient has been examined within 24 hours of the surgical procedure. The History & Physical has been completed within 30 days and I have reviewed it.: Yes Section B - Complete if H&P > 30 days Chief Complaint: Varicose veins of left lower extremity with inflam Allergies: Allergies Allergy/AdvReac Type Severity Reaction Status Date / Time prednisone Allergy Intermediate Gastrointestinal Verified 07/21/24 09:09 Upset warfarin [From COUMADIN] Allergy Intermediate dizziness,GI Verified 07/21/24 09:09 upset amoxicillin AdvReac Intermediate Diarrhea Verified 07/21/24 09:09 Plan I have reviewed the history and physical and performed a pertinent physical examination on my patient. No changes have occurred unless specified. Time Spent With Patient Time: Total time managing care of this patient today ____ minutes.
[2024-09-01 12:39] VITALS: BMI 23.1
[2024-09-01 12:45] VITALS: BP 113/83; PULSE 69; RESP 16; TEMP 36.9; O2SAT 100
[2024-09-01] MEDS: Lactated Ringers 1,000 ML 100 ML IVCONT (13:09)
--- NOTE | 2024-09-01 14:21 | W.PM.OPN ---
Operative Note Operative Note Date of Service: 09/01/24 Narrative: Diagnosis: Left Leg varicose veins with inflammation Postop diagnosis: Same Procedure: Left leg Microphlebectomy 2. Ligation venous cluster Surgeon: Dr. Fang Sealer Operator: None Anesthesia: General Specimens: None Procedure in detail: Varicose veins were marked in the standing position on the left leg and the patient was then placed in the supine position. The left lower extremity was prepared and draped to allow knee flexion in the sterile field. The patient had large superficial varicose veins with significant symptoms of pain. It was therefore determined to perform microphlebectomies of the clusters of varicose veins. The patient had bulging varicose veins which were previously marked in the standing position. A small stab incision was made longitudinally directly overlying the varicose vein in the calf and the varicose vein was grasped with a hemostat aided by a vein hook. It was then dissected as far proximally and distally as possible and avulsed. A total of 21 stab incisions were made and the procedure of stab phlebectomies was repeated 21 times. In addition there was a cluster of varicosities in the left medial thigh. This was identified with a micro incision and removed at the base. After removal the base was suture ligated with a 2-0 Polysorb suture. Hemostasis was checked and stab incision sites were closed with steri-strips and sterile dressing was given with gauze and krilex wrap followed by an marcelo bandage. There were no complications and blood loss was minimal. Post-Op instructions were given and a follow-up appointment was recommended.
[2024-09-01 14:22] VITALS: BP 111/56; PULSE 91; RESP 16; TEMP 36.2; O2SAT 99
[2024-09-01 14:25] VITALS: BP 136/77; PULSE 91; RESP 16; O2SAT 99
[2024-09-01 14:30] VITALS: BP 135/76; PULSE 77; RESP 16; O2SAT 99
[2024-09-01 14:35] VITALS: BP 132/64; PULSE 67; RESP 16; O2SAT 99
[2024-09-01 14:47] VITALS: BP 126/77; PULSE 67; RESP 16; TEMP 36.4; O2SAT 99
== END 2024-09-01 15:17 | disposition home or self-care (01) ==
PROVIDERS: PCP Internal Medicine; Visit Provider Surgery Vascular Surgery
PROC: (CPT 37766; principal; 2024-09-01 13:00)
DX: I83.12 Varicose veins of left lower extremity with inflammation (principal); M79.662 Pain in left lower leg; K76.0 Fatty (change of) liver, not elsewhere classified; R55 Syncope and collapse; L80 Vitiligo; Z79.1 Long term (current) use of non-steroidal anti-inflammatories (NSAID); Z88.1 Allergy status to other antibiotic agents; Z88.8 Allergy status to other drugs, medicaments and biological substances; Z86.711 Personal history of pulmonary embolism; Z98.890 Other specified postprocedural states
CPT/HCPCS: 37766; 37785; J2003; J2405; J2704; J2795; J3010

== ENCOUNTER → 2024-09-01 11:32 | Outpatient (BNV) | payer OTHER, SELFPAY | PROVIDERS: PCP Internal Medicine; Visit Provider Surgery Vascular Surgery | DX: I83.12 Varicose veins of left lower extremity with inflammation (principal) | CPT/HCPCS: 37766; 37785 ==

== ENCOUNTER 2024-09-15 09:16 | Outpatient (AMB) | payer OTHER, SELFPAY ==
--- NOTE | 2024-09-15 09:28 | MHC.OFFVIS ---
Intake Visit Reasons: Follow up Micro Intake Note: 2 week follow up Left Micro 09/01/24. Pt states he did have some bruising and pain in spots. [employer] Architect Required: No Accompanied by: Self / Same As Patient Allergies prednisone Allergy (Intermediate, Verified 09/16/24 11:16) Gastrointestinal Upset warfarin [From COUMADIN] Allergy (Intermediate, Verified 09/16/24 11:16) dizziness,GI upset amoxicillin Adverse Reaction (Intermediate, Verified 09/16/24 11:16) Diarrhea HPI HPI Follow up Micro: Details: The patient is a 59-year-old male presenting for a follow-up after undergoing microphlebectomy of the left leg on September 01, 2024. He reports a peculiar sensation in the leg upon waking, which improves after ambulation. He experienced initial post-operative pain and lumpiness at some sites owing to the procedure involved 21 incisions for varicose vein extraction. Observations of bruising and the presence of skin glue and steroid strips were made, with cleansing treatment advised. There were inquiries about when all associated symptoms and procedural effects are expected to fully resolve. Recently, the patient noted pruritic skin eruptions, previously considered for evaluation under ringworm but potentially representing a shingles manifestation. He is yet to receive a shingles vaccine. This has become more concerning with the prison of his former primary care physician and the need for new medical oversight. [facility] Medical History Nonalcoholic fatty liver disease Vasovagal reaction Pulmonary embolism DVT (deep venous thrombosis) Hx of varicose veins of lower extremity Vitiligo Surgical History S/P excision of lipoma (02/11/24) Hx of right inguinal hernia repair (12/11/23) H/O removal of cyst (12/11/23) History of surgery Hx of nasal polypectomy Hx of varicose vein ligation and stripping Family History Father Poor circulation Mother Cyst COPD (chronic obstructive pulmonary disease) Acid reflux disease Sister Cyst Brother Bone cancer Paternal Aunt Lupus Social History Household Members: Family Household Members Other:: mother Housing: House Are you a primary primary care md to a significant other at home: No Do you presently have visiting nurse or other home services: No Alcohol intake: current Alcohol intake frequency: does not drink Comment: using cane to hernia pain Patient Tobacco Use Status: Never used Tobacco Advance Directives: No Advance Directives Information Provided: Yes Do you have a plan to hurt others: No Plan service: No Current occupational status: employed Review of Systems Const All systems reviewed & are unremarkable except as noted in HPI and below Reports no additional complaints ENT Reports Normal hearing present Card Denies chest pain, Denies chest pain at rest, Denies chest pain with activity and Denies pedal edema Resp Denies cough GI Denies abdominal pain Musc Denies abnormal gait, Denies muscle cramps and Denies radiating pain into limb Skin/Breast Denies skin ulcer and Denies wounds Neuro Reports Normal hearing present and Denies abnormal gait Psych Reports no additional complaints Physical Exam Const General: cooperative, healthy appearing and comfortable Orientation/consciousness: oriented to person, oriented to place and oriented to time HEENT Head: Yes normal to inspection Neck Neck: Yes normal visual inspection Carotids: no bruits Chest Chest palpation & inspection: normal inspection of the chest Resp Effort & Inspection: normal respiratory effort and able to speak in complete sentences Auscultation: clear to auscultation bilaterally, no crackles, no rales, no rhonchi and no wheezes Cardio Rate: regular rate Rhythm: regular rhythm Heart sounds: S1 normal heart sound present and S2 normal heart sound present Bruits: no carotid bruits Peripheral pulses: Peripheral pulses 2+ throughout GI Inspection: Yes normal to inspection Skin Wounds: no wounds Hair: normal Neuro General: oriented to person, oriented to place and oriented to time Cranial nerves: Yes CN's II-XII intact bilaterally and Yes Normal hearing present Cognition (Neuro): normal cognition Motor exam (neuro): 5/5 motor strength present throughout Extrem Other: venous exam: No significant superficial varicosities or spider telangiectasias, minimal edema General: No clubbing, No cyanosis and No edema Psych Appearance: grossly normal Mental Status: mental status grossly normal Speech and movement: Normal speech and movement present Assessment & Plan Assessment & Plan (1) Varicose veins of left lower extremity with inflammation: Comment: 01/05/2022 - left great saphenous vein radiofrequency ablation 03/16/2022 - left small saphenous vein radiofrequency ablation 07/30/2022 - left leg microphlebectomy Code(s): I83.12 - Varicose veins of left lower extremity with inflammation Category: Medical Plan: The patient has done extremely well with all venous treatments. Patient's may often experience postprocedure phlebitic episodes and I have discussed with the patient use of warm compresses and NSAIDS if tolerated for pain discomfort. In addition, I have discussed continued conservative measures including use of compression, leg elevation, and exercise. The patient was also given an information sheet regarding appropriate use of compression stockings and future purchases. Thank you for allowing us to care for your patient with venous disease. Plan Patient was informed and verbally consented to the use of an ambient scribe for clinic note documentation during this visit. Patient Instructions: - Use warm compresses and heating pad regularly for leg comfort. - Take Advil or Motrin as needed for pain relief. - Wear compression stockings daily as directed. - Monitor skin conditions and seek urgent care if symptoms worsen. - Consider obtaining shingles vaccination. - Attempt moderate reduction of caffeine intake. - Resume normal activities gradually, mindful of leg recovery. Coding Level of Care Code Est Pt Level 3 (26350) Diagnoses Varicose veins of left lower extremity with inflammation I83.12
== END 2024-09-15 10:12 | disposition home or self-care (01) ==
PROVIDERS: PCP Internal Medicine; Visit Provider Surgery Vascular Surgery
DX: I83.12 Varicose veins of left lower extremity with inflammation (principal)
CPT/HCPCS: 99024

== ENCOUNTER → 2024-09-15 09:16 | Outpatient (BNVA) | payer OTHER, SELFPAY | PROVIDERS: PCP Internal Medicine; Visit Provider Surgery Vascular Surgery | DX: I83.12 Varicose veins of left lower extremity with inflammation (principal) | CPT/HCPCS: 99212 ==

== ENCOUNTER 2024-09-16 10:48 | Emergency (ER) | payer OTHER, SELFPAY ==
[2024-09-16 11:12] VITALS: BP 120/76; PULSE 80; RESP 18; TEMP 36.8; O2SAT 97; BMI 23.4
--- NOTE | 2024-09-16 11:13 | ED.SKABFB ---
HPI - Skin/Abscess/Foreign Bdy General Chief complaint: General Medical Stated complaint: ? Shingles Time Seen by Provider: 09/16/24 11:24 Source: patient, RN notes reviewed and old records reviewed Mode of arrival: ambulatory History of Present Illness ED Provider: Monica Jovel PA-C HPI narrative: 59-year-old male with a past medical history nonalcoholic fatty liver, PE, DVT, vitiligo, presenting to the ED complaining intermittent pruritic rash noted to upper extremities, lower extremities and abdomen x1.5 months. Reports rash is itchy and burning. Has been using some OTC lotion/cream with some relief. Denies known new exposures including soap, lotion, detergent, tick/insect bites, travel, SOB, throat closing sensation. Related Data Previous Rx's ?Medication ?Instructions ?Recorded ibuprofen 800 mg tablet 800 mg PO Q8H PRN pain #7 tabs 09/01/24 cetirizine 10 mg capsule (Zyrtec) 10 mg PO DAILY PRN allergy 09/16/24 symptoms #14 caps diphenhydramine HCl 25 mg capsule 25 mg PO TID PRN allergic reaction 09/16/24 (Benadryl) #14 caps hydrocortisone 1 % topical cream 1 appl topical TID PRN rash #28.4 09/16/24 (Anti-Itch (hydrocortisone)) grams Allergies Allergy/AdvReac Type Severity Reaction Status Date / Time prednisone Allergy Intermediate Gastrointestinal Verified 09/16/24 11:16 Upset warfarin [From COUMADIN] Allergy Intermediate dizziness,GI Verified 09/16/24 11:16 upset amoxicillin AdvReac Intermediate Diarrhea Verified 09/16/24 11:16 Review of Systems Review of Systems: Yes all other systems are reviewed and are negative Constitutional: Constitutional: Reports as per HPI [facility] Past Medical History Attestation statement: The following information was validated with the patient. Source: old records reviewed Medical History Nonalcoholic fatty liver disease Vasovagal reaction Pulmonary embolism DVT (deep venous thrombosis) Hx of varicose veins of lower extremity Vitiligo Surgical History S/P excision of lipoma (02/11/24) Hx of right inguinal hernia repair (12/11/23) H/O removal of cyst (12/11/23) History of surgery Hx of nasal polypectomy Hx of varicose vein ligation and stripping Family History Family History Father Poor circulation Mother Cyst COPD (chronic obstructive pulmonary disease) Acid reflux disease Sister Cyst Brother Bone cancer Paternal Aunt Lupus Social History Social History Household Members: Family Household Members Other:: mother Housing: House Are you a primary child care centre director to a significant other at home: No Do you presently have visiting nurse or other home services: No Alcohol intake: current Alcohol intake frequency: does not drink Comment: using cane to hernia pain Patient Tobacco Use Status: Never used Tobacco service: No Current occupational status: employed Physical Exam Vital Signs: Vital Signs: Last Vital Signs Temp 98.2 F 09/16/24 11:12 Pulse 80 09/16/24 11:12 Resp 18 09/16/24 11:12 BP 120/76 09/16/24 11:12 Pulse Ox 97 09/16/24 11:12 O2 Del Method Room Air 09/16/24 11:12 BMI result Body Mass Index 23.4 Const: General: cooperative, healthy appearing and no acute distress Orientation/consciousness: patient oriented x3 Limitations: no limitations HEENT: Head: Yes normal to inspection and Yes atraumatic Ears: hearing grossly normal bilaterally General nose exam: Normal external nose present Face and sinus: Yes normal facial exam Mouth: no drooling Throat: Yes posterior oropharynx normal, Yes uvula midline, No peritonsillar mass, No uvula laterally displaced and No uvular edema Eyes: General: appearance normal, both eyes and all related structures EOM: EOMs intact bilaterally Neck: Neck: Yes normal visual inspection and Yes no meningeal signs Resp: Effort & Inspection: normal respiratory effort and no respiratory distress Auscultation: clear to auscultation bilaterally Cardio: Rate: regular rate Heart sounds: S1 normal heart sound present and S2 normal heart sound present GI: Inspection: Yes normal to inspection Palpation (GI): Soft to palpation, nontender, no guarding and not rigid Skin: Other: + diffuse erythematous patchy areas noted to upper extremities and lower extremities. No mucous membrane involvement. No palm/sole involvement. No sloughing Wounds: no wounds Neuro: General: patient oriented x3, tone normal and no meningeal signs Cranial nerves: Yes CN's II-XII intact bilaterally Gait exam (Neuro): Normal gait present Extrem: General: Yes normal to inspection Medical Decision Making Medical Decision Making [facility] Narrative: 59-year-old male with a past medical history nonalcoholic fatty liver, PE, DVT, vitiligo, presenting to the ED complaining intermittent pruritic rash noted to upper extremities, lower extremities and abdomen x1.5 months. On exam vital signs stable, NAD, nontoxic appearing, physical exam as noted above. Concern for contact dermatitis. No evidence of anaphylaxis. Low suspicion for SJS/TENs. No evidence of cellulitis. Plan: Topical hydrocortisone, p.o. Benadryl and Zyrtec, dermatology and PCP follow up Please refer to course for remaining clinical decision making, interpretation of labs/imaging results, and discussions with consultants and/or family members. Results discussed with patient including worrisome signs and symptoms and strict return precautions, and when to return to the emergency department. They verbalized understanding and feel safe for discharge at this time. Differential Diagnosis Differential Diagnoses: The differential diagnosis associated with the presentation includes As above Admission/Observation Consideration of admission/observation: Escalation of care including admission/observation considered Lab Data [facility] Lab Attestation statement: I reviewed the patient's lab results. Radiology Impression Discussion of test interpretation with radiology: I have reviewed the radiologist's reading. External Record Review External record reviewed: Inpatient record, Office record, Outpatient record, Prior outpatient labs, Prior outpatient radiology, Primary care record and Outside ED record Tests considered The following testing was considered but not selected: As above Prescription Management I considered prescription management with: Other Chronic Conditions Patient?s care impacted by: Other Social Determinants Patient?s care significantly limited by Social Determinants of Health including: Other Social Determinant of Health Discharge Plan Discharge Clinical Impression: Contact dermatitis Patient Disposition: Home, Self-Care Instructions: Contact Dermatitis (DC) Additional Instructions: Please use hydrocortisone cream to your rash. Take Benadryl and Zyrtec as discussed for itching Follow-up with Dermatology You need to also follow up with her primary care doctor, call to make an appointment If symptoms persist or worsen, you develop shortness of breath, throat closing sensation return to the ED Prescriptions: New Zyrtec 10 mg capsule 10 mg PO DAILY PRN (Reason: allergy symptoms) Qty: 14 0RF hydrocortisone [Anti-Itch (HC)] 1 % cream 1 appl topical TID PRN (Reason: rash) Qty: 28.4 0RF diphenhydramine HCl [Benadryl] 25 mg capsule 25 mg PO TID PRN (Reason: allergic reaction) Qty: 14 0RF No Action ibuprofen 800 mg tablet 800 mg PO Q8H PRN (Reason: pain) Qty: 7 0RF Referrals: [facility] [Outside] [facility] [Outside] Print Language: Taiwanese
[2024-09-16 11:35] VITALS: BP 120/76; PULSE 80; RESP 18; TEMP 36.8; O2SAT 97
== END 2024-09-16 11:36 | disposition home or self-care (01) ==
PROVIDERS: Emergency Provider Emergency Medicine
DX: L25.9 Unspecified contact dermatitis, unspecified cause (principal)
CPT/HCPCS: 99282; 99283

== ENCOUNTER 2025-04-13 08:36 | Outpatient (AMB) | payer OTHER, SELFPAY ==
--- NOTE | 2025-04-13 08:40 | A.OFFPC_ITS ---
Vital Signs 04/13/25 08:46 Height 5 ft 11 in Weight 73.482 kg BMI 22.6 BP 110/78 Respiration 16 Pulse 71 Pulse Source Pulse Oximeter Temp 97.4 F Temp Source Temporal Artery Scan Pulse Oximetry (%) 98 Oxygen Delivery Method Room Air Intake Visit Reasons: Rashes, (see more in comments) / Dr Valdez Health Education Assistant Required: No Accompanied by: Self / Same As Patient Allergies prednisone Allergy (Intermediate, Verified 04/13/25 08:41) Gastrointestinal Upset warfarin (From COUMADIN) Allergy (Intermediate, Verified 04/13/25 08:41) dizziness,GI upset amoxicillin Adverse Reaction (Intermediate, Verified 04/13/25 08:41) Diarrhea Tobacco use date assessed: 04/13/25 Dental Screening Dental Screen Date: 04/13/25 Did you have a dental visit in the last 12 months?: Yes Did you have a dental problem in the last 6 months where you did not have access to dental care?: No Was dental information given to patient?: No HPI HPI Comments History of Present Illness Details 59-year-old male with history of fatty l iver, varicose veins, BPH, thrombocytopenia, vitiligo, history of PE November 2020, hypercholesterolemia presenting to the office today for management of chronic conditions and to establish care. Hypercholesterolemia-diet controlled-last LDL 120 History of PE/varicose veins-November 2020, no longer on anticoagulation. Microphlombectomy with Dr. Fang, still with LLE edema. Repeat venous duplex of the left lower extremity negative for DVT but showed thrombosed superficial varicose veins in the medial calf. He did discontinue his Xarelto on his own despite recommendations for lifelong anticoagulation by Hematology. BPH-stable Fatty liver-patient concerned. Last LFTs within normal limits. Has made significant changes to diet Vitiligo- primarily arms, L legs. Derm appt Dr Ling, but dropped insurance Chronic thrombocytopenia-previously seen by Dr. Lopez, however on review of chart and it appears this visit was actually due to DVT evaluation Concerns: L foot pain- swelling/varicose veins. Wearing diabetic socks ROS: see hpi EXAM: Constitutional - Awake and Alert, No apparent distress Eyes - PERRL Cardiovascular - S1S2, RRR. Tortuous varicosities with swelling and edema of the left lower leg Respiratory - Normal lung expansion, Normal respiratory effort, No respiratory distress, CTA bilaterally Extremities - no calf tenderness bilaterally, no swelling. Skin - Warm/Dry. Mildly Erythematous/shiny lesions left side of nose. Vitiligo hands, ventral forearms, lower extremity left Neurological - Alert & oriented x3 Psychological - Appropriate affect [facility] Medical History (Updated 04/13/25 @ 09:08 by ALBERTINA Soriano) Thrombocytopenia HLD (hyperlipidemia) Nonalcoholic fatty liver disease Vasovagal reaction Pulmonary embolism DVT (deep venous thrombosis) Hx of varicose veins of lower extremity Vitiligo Surgical History S/P excision of lipoma (02/11/24) Hx of right inguinal hernia repair (12/11/23) H/O removal of cyst (12/11/23) History of surgery Hx of nasal polypectomy Hx of varicose vein ligation and stripping Family History Father Poor circulation Mother Cyst COPD (chronic obstructive pulmonary disease) Acid reflux disease Sister Cyst Brother Bone cancer Paternal Aunt Lupus Social History Household Members: Family Household Members Other:: mother Housing: House Are you a primary post acute care nurse practitioner to a significant other at home: No Do you presently have visiting nurse or other home services: No Alcohol intake: current Alcohol intake frequency: does not drink Comment: using cane to hernia pain Patient Tobacco Use Status: Never used Tobacco e-Cigarette/Vaping Use: Never Used service: No Current occupational status: employed Cognitive needs: No Hearing needs: No Vision needs: Yes (Rx glasses) Questionnaire PHQ-9 Over the last 2 weeks, how often have you been bothered by any of the following problems? 1. Little interest or pleasure in doing things: several days 2. Feeling down, depressed, or hopeless: several days 3. Trouble falling or staying asleep, or sleeping too much: several days 4. Feeling tired or having little energy: several days 5. Poor appetite or overeating: not at all 6. Feeling bad about yourself - or that you are a failure or have let yourself or your family down: not at all 7. Trouble concentrating on things, such as reading the newspaper or watching television: several days 8. Moving or speaking so slowly that other people could have noticed. Or the opposite - being so fidgety or restless that you have been moving around a lot more than usual: not at all 9. Thoughts that you would be better off or of hurting yourself in some way: not at all Total score: 5 Depression Screening Interpretation: Positive Depression Screening Done: Yes Source: Developed by Drs. Fitz Galaviz, Bailey Burgos, Gallo Gifford and colleagues, with an educational coleen from [employer]. Thrive Questionnaire Date Thrive assessed: 04/13/25 I am a: Patient What is your living situation today?: I have a steady place to live Within the past 12 months, did the food you bought not last and you didn't have the money to get more?: Never true Within the past 12 months, did you worry whether your food would run out before you got money to buy more?: Never true Do you have trouble paying for medicines?: No Do you have trouble getting transportation to medical appointments?: No Do you have trouble paying your heating and electricity bill?: No Do you have trouble taking care of your child, family member or friend?: No Do you have trouble with day-to-day activities such as bathing, preparing meals, shopping, managing finances, etc.?: No Are you currently unemployed and looking for a job?: No Are you interested in more education?: No Please select the resources that you would like help with: None THRIVE Score: 0 AUDIT C Alcohol Use Questionnaire (AUDIT-C) 1. How often do you have a drink containing alcohol?: Monthly or less Total Score: 1 MICHAEL-7 AMB Questionnaire MICHAEL-7 Date MICHAEL - 7 assessed: 04/13/25 Feeling nervous, anxious, or on edge: 1 = Several days Not being able to stop or control worryin = Several days Worrying too much about different things: 1 = Several days Trouble relaxin = Not at all Being so restless that it is hard to sit still: 0 = Not at all Becoming easily annoyed or irritable: 0 = Not at all Feeling afraid as if something awful might happen: 0 = Not at all Total MICHAEL-7 score (0-4 normal; 5-9 mild; 10-14 moderate; 15-21 severe): 3 Source: Developed by Drs. Fitz Galaviz, Bailey Burgos, Gallo kiran nd colleagues, with an educational coleen from [employer]. Physical exam (Primary Care) Vital Signs: Last Vital Signs Temp 97.4 F 04/13/25 08:46 Pulse 71 04/13/25 08:46 Resp 16 04/13/25 08:46 BP 110/78 04/13/25 08:46 Pulse Ox 98 04/13/25 08:46 Oxygen Delivery Method Room Air 04/13/25 08:46 BMI result Body Mass Index 22.6 Tobacco/Smoking Status: Tobacco use Status Tobacco use date assessed 04/13/25 04/13/25 08:48 Patient Tobacco Use Status Never used Tobacco 04/13/25 08:48 e-Cigarette/Vaping Use Never Used 04/13/25 08:48 PHQ-9: PHQ-9 Score PHQ-9: Total score 5 04/13/25 09:34 Depression Screening Interpretation: Positive Thrive Assessment: Date of Thrive Assessment Date Thrive assessed 04/13/25 04/13/25 09:12 Coding Level of Care Code New Pt Level 4 (04745) Complex EM visit Add On G2211 Diagnoses Thrombocytopenia D69.6 Pulmonary embolism I26.99 Nonalcoholic fatty liver disease K76.0 Vitiligo L80 Varicose veins of left lower extremity with inflammation I83.12 Assessment & Plan Assessment & Plan (1) Thrombocytopenia: Code(s): D69.6 - Thrombocytopenia, unspecified Category: Medical Plan: Chronic, mild. Likely idiopathic. Not on any blood thinners. Reviewed last note from hematology which does not seem like it addressed thrombocytopenia but rather blood clots. We will recheck platelets today and consider referral back to Hematology if worsening (2) Pulmonary embolism: Code(s): I26.99 - Other pulmonary embolism without acute cor pulmonale Category: Medical Plan: Was recommended for lifelong anticoagulation but patient discontinued his Xarelto several years ago, Hematology was aware and did advise lifelong a nticoagulation. Subsequent repeat venous duplex was negative for DVT (3) Nonalcoholic fatty liver disease: Code(s): K76.0 - Fatty (change of) liver, not elsewhere classified Category: Medical Plan: Liver panel ordered. Continue with lifestyle modification (4) Vitiligo: Code(s): L80 - Vitiligo Category: Medical Plan: Refer to dermatology (5) Varicose veins of left lower extremity with inflammation: Comment: 01/05/2022 - left great saphenous vein radiofrequency ablation 03/16/2022 - left small saphenous vein radiofrequency ablation 07/30/2022 - left leg microphlebectomy Code(s): I83.12 - Varicose veins of left lower extremity with inflammation Category: Medical Plan: Advised to wear compression stockings, leg elevation. Advised to reschedule appointment with vascular surgery Plan Follow-up in the office in 6 months Orders: Orders Basic Metabolic Panel Today E78.5 - Hyperlipidemia, unspecified, I26.99 - Other pulmonary embolism without acute cor pulmonale, K76.0 - Fatty (change of) liver, not elsewhere classified, L80 - Vitiligo TSH reflex Free T4 Today E78.5 - Hyperlipidemia, unspecified, I26.99 - Other pulmonary embolism without acute cor pulmonale, K76.0 - Fatty (change of) liver, not elsewhere classified, L80 - Vitiligo Vitamin D 25-OH Total Today E78.5 - Hyperlipidemia, unspecified, I26.99 - Other pulmonary embolism without acute cor pulmonale, K76.0 - Fatty (change of) liver, not elsewhere classified, L80 - Vitiligo Complete Blood Count Auto Diff Today E78.5 - Hyperlipidemia, unspecified, I26.99 - Other pulmonary embolism without acute cor pulmonale, K76.0 - Fatty (change of) liver, not elsewhere classified, L80 - Vitiligo Lipid Panel Today E78.5 - Hyperlipidemia, unspecified, I26.99 - Other pulmonary embolism without acute cor pulmonale, K76.0 - Fatty (change of) liver, not elsewhere classified, L80 - Vitiligo Liver Panel Today E78.5 - Hyperlipidemia, unspecified, I26.99 - Other pulmonary embolism without acute cor pulmonale, K76.0 - Fatty (change of) liver, not elsewhere classified, L80 - Vitiligo Prothrombin Time INR Today C44.311 - Basal cell carcinoma of skin of nose, D69.6 - Thrombocytopenia, unspecified, K76.0 - Fatty (change of) liver, not elsewhere classified, L80 - Vitiligo Partial Thromboplastin Time Today C44.311 - Basal cell carcinoma of skin of nose, D69.6 - Thrombocytopenia, unspecified, K76.0 - Fatty (change of) liver, not elsewhere classified, L80 - Vitiligo Referrals Dermatology Referral C44.311 - Basal cell carcinoma of skin of nose, L80 - Vitiligo Patient Instructions: Compression stockings Contact Dr. Fang for an appt
[2025-04-13 08:46] VITALS: BP 110/78; PULSE 71; RESP 16; TEMP 36.3; O2SAT 98; BMI 22.6
== END 2025-04-13 09:14 | disposition home or self-care (01) ==
LOC: HO.HMCHD 08:37
PROVIDERS: Visit Provider Physician Assistant
DX: D69.6 Thrombocytopenia, unspecified (principal); I26.99 Other pulmonary embolism without acute cor pulmonale; K76.0 Fatty (change of) liver, not elsewhere classified; L80 Vitiligo; I83.12 Varicose veins of left lower extremity with inflammation

== ENCOUNTER → 2025-04-13 08:36 | Outpatient (BNVA) | payer OTHER, SELFPAY | PROVIDERS: Visit Provider Physician Assistant | DX: Z76.89 Persons encountering health services in other specified circumstances (principal); D69.6 Thrombocytopenia, unspecified; K76.0 Fatty (change of) liver, not elsewhere classified; L80 Vitiligo; I83.12 Varicose veins of left lower extremity with inflammation; N40.0 Benign prostatic hyperplasia without lower urinary tract symptoms; M79.672 Pain in left foot; Z86.711 Personal history of pulmonary embolism; Z13.31 Encounter for screening for depression; Z13.39 Encounter for screening examination for other mental health and behavioral disorders | CPT/HCPCS: 99202 ==

== ENCOUNTER 2025-04-13 09:22 | Outpatient (REF) | payer OTHER, SELFPAY ==
[2025-04-13 11:32] LABS: Alanine Aminotransferase 26 U/L (0-40); Albumin Level 4.5 g/dL (3.5-5.0); Alkaline Phosphatase 83 U/L (39-117); Anion Gap 11 (12-20); Aspartate Amino Transferase 33 U/L (5-37); Blood Urea Nitrogen 20 mg/dL (9-16); Calcium 8.9 mg/dL (8.4-10.2); Carbon Dioxide 27 mmol/L (22-29); Chloride 109 mmol/L (96-108); Cholesterol 210 mg/dL (<200); Estimated Glomerular Filt Rate > 60; HDL Cholesterol 62 mg/dL (>40); Potassium 3.9 mmol/L (3.3-5.1); Sodium 143 mmol/L (135-145); Total Protein 6.9 g/dL (6.5-8.0); Triglycerides 63 mg/dL (<150)
[2025-04-13 11:36] LABS: INTERNATIONAL NORM RATIO 1.0 (0.9-1.1); Prothrombin Time 11.4 SEC (10.9-12.4)
[2025-04-13 11:39] LABS: Partial Thromboplastin Time 28.8 SEC (26.7-34.1)
[2025-04-13 11:46] LABS: Hematocrit 46.0 % (42.0-52.0); Hemoglobin 15.7 g/dl (14.0-18.0); Imm Gran Abs Auto 0.03 X10*3/uL (0.00-0.03); Imm Gran Pct Auto 0.6 % (0.0-0.4); Lymphocytes Absolute Auto 1.0 X10*3/uL (1.2-4.9); MANUAL DIFF FLAG SCAN; Mean Corpuscular HGB Conc 34.1 g/dl (31.0-36.0); Mean Corpuscular Hemoglobin 31.3 pg (27.0-33.0); Mean Corpuscular Volume 91.8 fL (80.0-98.0); NRBC Abs Auto 0.000 X10*3/uL (0.0-0.012); NRBC Pct Auto 0.0 /100WBC (0.0-0.2); PLT CLUMP 1; Red Blood Count 5.01 X10*6/uL (4.60-5.80); SCAN SMEAR FLAG 1
[2025-04-13 12:39] LABS: Platelet Count 133 X10*3/uL (160-400); White Blood Count 5.2 X10*3/uL (4.8-10.8)
== END 2025-04-13 09:23 | disposition home or self-care (01) ==
LOC: HO.10HDL 09:22
PROVIDERS: Visit Provider Physician Assistant
DX: L80 Vitiligo (principal); E78.5 Hyperlipidemia, unspecified; I26.99 Other pulmonary embolism without acute cor pulmonale; K76.0 Fatty (change of) liver, not elsewhere classified; D69.6 Thrombocytopenia, unspecified; C44.311 Basal cell carcinoma of skin of nose
CPT/HCPCS: 36415; 80048; 80061; 80076; 82306; 84443; 85025; 85610; 85730

== ENCOUNTER 2025-05-11 08:54 | Outpatient (AMB) | payer OTHER, SELFPAY ==
[2025-05-11 09:13] VITALS: BMI 22.6
--- NOTE | 2025-05-11 09:13 | MHC.OFFVIS ---
Vital Signs 05/11/25 09:13 Height 5 ft 11 in Weight 162 lb BMI 22.6 Intake Visit Reasons: PRN follow up for VV with pain Intake Note: PRN follow up Left LE VV w/ pain, near foot mostly. Pt states he has some discoloration near ankle when he wears socks. 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 States he does have vitaligo. Does see derm normally but had change of insurance and has new derm scheduling in 2025. Foot VV are rubbing against his shoes. Elementary Education Tutor Required: No Accompanied by: Self / Same As Patient Allergies prednisone Allergy (Intermediate, Verified 05/11/25 09:17) Gastrointestinal Upset warfarin (From COUMADIN) Allergy (Intermediate, Verified 05/11/25 09:17) dizziness,GI upset amoxicillin Adverse Reaction (Intermediate, Verified 05/11/25 09:17) Diarrhea HPI HPI PRN follow up for VV with pain: Details: The patient is a 59-year-old male presenting with concerns regarding leg discomfort and potential venous issues. He reported using diabetic socks which left impressions and redness on his legs, taking two to three days to resolve. During the summer, he experienced significant rubbing and irritation on his left foot due to his shoes, leading to discomfort. The patient noted a bulge of veins or tendons in his foot, causing intermittent pain over the past month. He had been without a doctor for six months due to insurance issues, managing symptoms independently until he could seek medical attention. At the current time his biggest complaint is some varicosities over the feet. He now presents for re-evaluation of the lower extremities. [facility] Medical History Thrombocytopenia HLD (hyperlipidemia) Nonalcoholic fatty liver disease Vasovagal reaction Pulmonary embolism DVT (deep venous thrombosis) Hx of varicose veins of lower extremity Vitiligo Surgical History S/P excision of lipoma (02/11/24) Hx of right inguinal hernia repair (12/11/23) H/O removal of cyst (12/11/23) History of surgery Hx of nasal polypectomy Hx of varicose vein ligation and stripping Family History Father Poor circulation Mother Cyst COPD (chronic obstructive pulmonary disease) Acid reflux disease Sister Cyst Brother Bone cancer Paternal Aunt Lupus Social History Household Members: Family Household Members Other:: mother Housing: House Are you a primary geriatric personal care aide to a significant other at home: No Do you presently have visiting nurse or other home services: No 75 years or older and lives alone: No Alcohol intake: current Alcohol intake frequency: does not drink Comment: using cane to hernia pain Patient Tobacco Use Status: Never used Tobacco e-Cigarette/Vaping Use: Never Used service: No Current occupational status: employed Cognitive needs: No Hearing needs: No Vision needs: Yes (Rx glasses) Review of Systems Const All systems reviewed & are unremarkable except as noted in HPI and below Reports no additional complaints ENT Reports Normal hearing present Card Denies chest pain, Denies chest pain at rest, Denies chest pain with activity and Denies pedal edema Resp Denies cough GI Denies abdominal pain Musc Denies abnormal gait, Denies muscle cramps and Denies radiating pain into limb Skin/Breast Denies skin ulcer and Denies wounds Neuro Reports Normal hearing present and Denies abnormal gait Psych Reports no additional complaints Physical Exam Vital Signs: BMI result Body Mass Index 22.6 Const General: cooperative, healthy appearing and comfortable Orientation/consciousness: oriented to person, oriented to place and oriented to time HEENT Head: Yes normal to inspection Neck Neck: Yes normal visual inspection Carotids: no bruits Chest Chest palpation & inspection: normal inspection of the chest Resp Effort & Inspection: normal respiratory effort and able to speak in complete sentences Auscultation: clear to auscultation bilaterally, no crackles, no rales, no rhonchi and no wheezes Cardio Rate: regular rate Rhythm: regular rhythm Heart sounds: S1 normal heart sound present and S2 normal heart sound present Bruits: no carotid bruits Peripheral pulses: Peripheral pulses 2+ throughout GI Inspection: Yes normal to inspection Skin Wounds: no wounds Hair: normal Neuro General: oriented to person, oriented to place and oriented to time Cranial nerves: Yes CN's II-XII intact bilaterally and Yes Normal hearing present Cognition (Neuro): normal cognition Motor exam (neuro): 5/5 motor strength present throughout Extrem Other: venous exam: Mild varicosities of the feet and right calf General: No clubbing, No cyanosis and Yes edema Psych Appearance: grossly normal Mental Status: mental status grossly normal Speech and movement: Normal speech and movement present Assessment & Plan Assessment & Plan (1) Varicose veins of left lower extremity with inflammation: Comment: 01/05/2022 - left great saphenous vein radiofrequency ablation 03/16/2022 - left small saphenous vein radiofrequency ablation 07/30/2022 - left leg microphlebectomy Code(s): I83.12 - Varicose veins of left lower extremity with inflammation Category: Medical Plan: I discussed with the patient that the veins in the feet are typically not treated due to their proximity to nerves and other structures. I recommended the use of compression garments and leg elevation to aid circulation. I suggested that further intervention might be more cosmetic and recommended visiting a vein center for additional assessment. He will follow up with us on an as-needed basis. Thank you for allowing us to assist in his care. If there are any questions or concerns please do not hesitate to contact us. Coding Level of Care Code Est Pt Level 4 (20274) Diagnoses Varicose veins of left lower extremity with inflammation I83.12
== END 2025-05-11 09:40 | disposition home or self-care (01) ==
LOC: HO.HVS 08:55
PROVIDERS: Visit Provider Surgery Vascular Surgery
DX: I83.12 Varicose veins of left lower extremity with inflammation (principal)
CPT/HCPCS: 99214

== ENCOUNTER → 2025-05-11 08:54 | Outpatient (BNVA) | payer OTHER, SELFPAY | PROVIDERS: Visit Provider Surgery Vascular Surgery | DX: I83.12 Varicose veins of left lower extremity with inflammation (principal) | CPT/HCPCS: 99212 ==

== ENCOUNTER 2025-07-11 14:28 | Emergency (ER) | payer OTHER, SELFPAY ==
--- NOTE | ~2025-07-11 | XR_ITS ---
CLINICAL HISTORY: pain, injury 5 view, pelvis and right hip Comparison: None provided Findings: The bones are intact. No significant arthritic change of the hips. The soft tissues are unremarkable. IMPRESSION: No acute findings. This document has been electronically signed by: Valerie Lin MD on 07/11/2025 18:13:59
--- NOTE | ~2025-07-11 | XR_ITS ---
CLINICAL HISTORY: pain, injury 3 views lumbar spine Comparison: None provided Findings: Normal vertebral body alignment. No acute fractures or dislocation. No significant loss of intervertebral disc height. Facet osteoarthritis is present at L5-S1. IMPRESSION: No acute findings. This document has been electronically signed by: Valerie Lin MD on 07/11/2025 18:13:45
[2025-07-11 14:34] VITALS: BP 136/79; PULSE 85; RESP 20; TEMP 36.7; O2SAT 99; BMI 23.9
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
[2025-07-11 18:42] VITALS: BP 136/79; PULSE 85; RESP 20; TEMP 36.7; O2SAT 99
== END 2025-07-11 18:43 | disposition home or self-care (01) ==
LOC: HO.ED 18:40
PROVIDERS: Emergency Provider Emergency Medicine; PCP Physician Assistant
DX: M62.830 Muscle spasm of back (principal); M54.50 Low back pain, unspecified; M25.551 Pain in right hip
CPT/HCPCS: 72100; 73502; 99282; 99283

== ENCOUNTER → 2025-07-11 14:38 | Outpatient (BNV) | payer OTHER, SELFPAY | PROVIDERS: Emergency Provider Emergency Medicine; PCP Physician Assistant; Visit Provider Radiology Diagnostic Radiology | DX: M54.50 Low back pain, unspecified (principal); M25.551 Pain in right hip | CPT/HCPCS: 72100; 73502 ==